=== PATIENT | male | born 1935 | race Caucasian/White ===

== ENCOUNTER → 2016-03-31 | Outpatient (CLI) | payer MEDICARE ==
[~2016-03-31] MED LIST: AMBI10TA PO; ASPI81CH CHEW; CLON1TAB PO; GABA300C5 PO; METO25TA6 PO; PANT40TA3 PO; SODI650T PO; WARF-60 PO
[2016-03-31 17:26] LABS: INDIRECT BILIRUBIN 0.1 MG/DL (0.0-0.8); TOTAL BILIRUBIN ADULT 0.2 MG/DL (0.2-1.0)
== END ==
LOC: PLAB 13:50
PROVIDERS: ATTEND Internal Medicine Gastroenterology
DX: R10.11 Right upper quadrant pain (principal); R74.8 Abnormal levels of other serum enzymes
CPT/HCPCS: 36415; 80076

== ENCOUNTER 2016-04-23 08:33 | Observation (INO) | payer MEDICARE ==
[~2016-04-23] VITALS: Ht 175.3 cm; Wt 85.0 kg
[2016-04-23] VITALS (14 sets, daily range): BP systolic 123–195; BP diastolic 58–94; PULSE 54–79; RESP 14–20; TEMP 95.9–97.8; O2SAT 95–100
[~2016-04-23 08:33] MED LIST changes: -AMBI10TA PO
--- NOTE | 2016-04-23 08:42 | PD ---
HPI Chief Complaint: Chest Pain Time Seen by Provider: 08:42 Travel History International Travel<30 days: No Contact w/Intl Traveler<30days: No Traveled to known affect area: No History of Present Illness HPI 81-year-old male came to the emergency room with history of chest pain that started at 5 in the morning. Took one nitroglycerin and one baby aspirin. Decided come to the emergency room. He has history of coronary artery disease and has had stents in the past. His last stent was 6 years ago. He was asking for his waiver analyst was Dr. Don. Currently he says his pain is 3 out of 10. It radiates to his neck. Vital signs were stable. He does not appear to be in any distress currently. Describes the pain as a pressure sensation on his chest. No associated symptoms. PFSH Past Medical History Narrative Medical List of his past medical history is reviewed from the nursing note. Hx Anticoagulant Therapy: Yes Heart Rhythm Problems: Yes Cardiac Catheterization: Yes Cardiovascular Problems: Yes ([place]) High Cholesterol: Yes Chest Pain: Yes Congestive Heart Failure: No Coronary Artery Disease: Yes Diabetes: No Diminished Hearing: No Deep Vein Thrombosis: Yes Gastrointestinal Disorders: Yes (Diverticulitis, "infected hemmorhoid") Hypertension: Yes Respiratory: Yes (PE) Immunizations Current: Yes Myocardial Infarction: Yes (2005) Past Surgical History Cardiac Surgery: Yes (CAD) Coronary Artery Bypass Graft: No Coronary Stent: Yes Tonsillectomy: Yes Other Surgery: Yes Social History Alcohol Use: Yes (Normally daily w/ dinner, not in past 1 mo.) Tobacco Use: No Substance Use: No Allergies-Medications (Allergen,Severity, Reaction): Coded Allergies: Shellfish (Verified Allergy, Severe, SWELLING, 04/23/16) Contrast Media (Verified Allergy, Unknown, 04/23/16) HMG-CoA Reductase Inhibitors (Verified Allergy, Unknown, 04/23/16) Uncoded Allergies: STATINS (Allergy, Severe, 04/09/09) Comments List of his allergies reviewed from the nursing note. Reported Meds & Prescriptions Reported Meds & Active Scripts Active Reported Ambien (Zolpidem Tartrate) 10 Mg Tab 10 Mg PO HS PRN Aspirin 81 Mg Chew 81 Mg CHEW DAILY Warfarin 6 Mg Tab 6 Mg PO DAILY Narrative Medication List of his home medications reviewed from the nursing note. Review of Systems Except as stated in HPI: all other systems reviewed are Neg Physical Exam Narrative GENERAL: Awake, alert, no obvious distress SKIN: Warm and dry. HEAD: Atraumatic. Normocephalic. EYES: Pupils equal and round. No scleral icterus. No injection or drainage. ENT: No nasal bleeding or discharge. Mucous membranes pink and moist. NECK: Trachea midline. No JVD. CARDIOVASCULAR: Regular rate and rhythm. No murmur appreciated. RESPIRATORY: No accessory muscle use. Clear to auscultation. Breath sounds equal bilaterally. GASTROINTESTINAL: Abdomen soft, non-tender, nondistended. Hepatic and splenic margins not palpable. MUSCULOSKELETAL: No obvious deformities. No clubbing. No cyanosis. No edema. NEUROLOGICAL: Awake and alert. No obvious cranial nerve deficits. Motor grossly within normal limits. Normal speech. PSYCHIATRIC: Appropriate mood and affect; insight and judgment normal. Data Data Last Documented VS Vital Signs Date Time Temp Pulse Resp B/P Pulse Ox O2 Delivery O2 Flow Rate FiO2 04/23/16 11:00 55 16 123/58 95 Nasal Cannula 2 04/23/16 08:40 97.8 Orders Electrocardiogram (04/23/16 ) Basic Metabolic Panel (Bmp) (04/23/16 08:43) Ckmb (Isoenzyme) Profile (04/23/16 08:43) Complete Blood Count With Diff (04/23/16 08:43) Magnesium (Mg) (04/23/16 08:43) Prothrombin Time / Inr (Pt) (04/23/16 08:43) Act Partial Throm Time (Ptt) (04/23/16 08:43) Troponin I (04/23/16 08:43) Chest, Single Ap (04/23/16 08:43) Ecg Monitoring (04/23/16 08:43) Bilateral Bp Monitoring (04/23/16 08:43) Iv Access Insert/Monitor (04/23/16 08:43) Oximetry (04/23/16 08:43) Oxygen Administration (04/23/16 08:43) Sodium Chloride 0.9% Flush (Ns Flush) (04/23/16 08:45) Aspirin Chew (Aspirin Chew) (04/23/16 09:00) CKMB (04/23/16 08:50) CKMB% (04/23/16 08:50) Acetamin-Hydrocod 325-5 Mg ([place] 5-325 (04/23/16 10:45) Admit Order (Ed Use Only) (04/23/16 11:09) Labs Laboratory Tests Test 04/23/16 08:50 White Blood Count 4.3 TH/MM3 Red Blood Count 3.75 MIL/MM3 Hemoglobin 12.3 GM/DL Hematocrit 36.0 % Mean Corpuscular Volume 95.8 FL Mean Corpuscular Hemoglobin 32.8 PG Mean Corpuscular Hemoglobin 34.3 % Concent Red Cell Distribution Width 13.5 % Platelet Count 128 TH/MM3 Mean Platelet Volume 7.9 FL Neutrophils (%) (Auto) 66.7 % Lymphocytes (%) (Auto) 22.9 % Monocytes (%) (Auto) 6.2 % Eosinophils (%) (Auto) 3.9 % Basophils (%) (Auto) 0.3 % Neutrophils # (Auto) 2.9 TH/MM3 Lymphocytes # (Auto) 1.0 TH/MM3 Monocytes # (Auto) 0.3 TH/MM3 Eosinophils # (Auto) 0.2 TH/MM3 Basophils # (Auto) 0.0 TH/MM3 CBC Comment DIFF FINAL Differential Comment Prothrombin Time 20.7 SEC Prothromb Time International 1.8 RATIO Ratio Activated Partial 32.9 SEC Thromboplast Time Sodium Level 141 MEQ/L Potassium Level 4.1 MEQ/L Chloride Level 110 MEQ/L Carbon Dioxide Level 23.6 MEQ/L Anion Gap 7 MEQ/L Blood Urea Nitrogen 22 MG/DL Creatinine 2.37 MG/DL Estimat Glomerular Filtration 27 ML/MIN Rate Random Glucose 130 MG/DL Calcium Level 7.8 MG/DL Phosphorus Level 2.0 MG/DL Magnesium Level 2.0 MG/DL Total Creatine Kinase 106 U/L Creatine Kinase MB 2.6 NG/ML Troponin I 0.02 NG/ML B-Type Natriuretic Peptide 44 PG/ML [facility] Medical Decision Making Medical Screen Exam Complete: Yes Emergency Medical Condition: Yes Medical Record Reviewed: Yes Interpretation(s) Twelve-lead EKG was reviewed by me. Normal sinus rhythm, left axis, old inferior WA, nonspecific ST-T wave changes, bradycardia. Heart rate of 58 bpm. Differential Diagnosis ACS, non-STEMI, nonspecific chest pain Narrative Course 10:07 AM blood test results of back and within normal limits. Patient has stage IV kidney disease with renal insufficiency which is unchanged from his past blood test results. Have put a call out for his waiver analyst. Awaiting for him to call back. 10:[address] Don patient's waiver analyst called back and he wants the patient to be admitted. He will consult on the patient. Awaiting for the residents to call back. I explained this to the patient and he was comfortable with the plan. He asked something for his neck pain and one hydrocodone was ordered. Procedures EKG Prior to Arrival: Yes Physician Communication Physician Communication Dr. Don Diagnosis Primary Impression: Chest pain Qualified Code: R07.9 - Chest pain, unspecified type Additional Impression: Chronic kidney disease, stage IV (severe) Admitting Information Admitting Physician Requests: Admit Suki Brown MD Apr 23, 2016 08:42
[2016-04-23] MEDS ORDERED: SODIUM CHLORIDE 0.9% FLUSH 5 ML FLUSH IVF PRN (08:45)
[2016-04-23] MEDS ORDERED: ASPIRIN 81 MG CHEW TAB CHEW ONE (09:00)
[2016-04-23 09:14] LABS: AUTOMATED NEUTROPHIL # 2.9 TH/MM3 (1.8-7.7); BASOPHIL % 0.3 % (0.0-2.0); EOSINOPHIL # 0.2 TH/MM3 (0-0.4); EOSINOPHIL % 3.9 % (0.0-4.0); HEMO FLAGS DIFF FINAL; LYMPH % 22.9 % (9.0-44.0); MEAN CELL VOLUME 95.8 FL (80.0-100.0); MEAN CORPUSCULAR HEMOGLOBIN 32.8 PG (27.0-34.0); MEAN CORPUSCULAR HGB CONC 34.3 % (32.0-36.0); MONO % 6.2 % (0.0-8.0); NEUT % 66.7 % (16.0-70.0); PLATELET COUNT 128 TH/MM3 (150-450); RED BLOOD COUNT 3.75 MIL/MM3 (4.50-5.90); RED CELL DISTRIBUTION WIDTH 13.5 % (11.6-17.2); WHITE BLOOD COUNT 4.3 TH/MM3 (4.0-11.0)
[2016-04-23 09:19] LABS: APTT (PATIENT) 32.9 SEC (24.3-30.1); INTERNATIONAL NORMALIZED RATIO 1.8 RATIO; PROTHROMBIN TIME - PATIENT 20.7 SEC (9.8-11.6)
[2016-04-23 09:29] LABS: ANION GAP 7 MEQ/L (5-15); BICARBONATE 23.6 MEQ/L (21.0-32.0); BLOOD UREA NITROGEN 22 MG/DL (7-18); CHLORIDE 110 MEQ/L (98-107); GLOMERULAR FILTRATION RATE 27 ML/MIN (>89); POTASSIUM 4.1 MEQ/L (3.5-5.1); SODIUM (NA) 141 MEQ/L (136-145)
--- NOTE | 2016-04-23 09:32 | RADRPT ---
EXAM DATE/TIME: 04/23/2016 09:01 [facility] COMPARISON: CHEST SINGLE AP, February 11, 2016, 15:04. INDICATIONS : Chest discomfort, with tightness and shortness of breath. MEDICAL HISTORY : Myocardial infarction. SURGICAL HISTORY : Coronary artery stent. ENCOUNTER: Initial ACUITY: 2 days PAIN SCORE: 6/10 LOCATION: Bilateral chest FINDINGS: A single view of the chest demonstrates the lungs to be symmetrically aerated without evidence of mas s, infiltrate or effusion. The cardiomediastinal contours are unremarkable. Osseous structures are intact. CONCLUSION: No acute disease. Rayo Zaragoza MD FACR on April 23, 2016 at 9:30 Board Certified Radiologist. This report was verified electronically.
[2016-04-23 09:33] LABS: CREATINE KINASE 106 U/L (39-308)
[2016-04-23 09:45] LABS: CKMB 2.6 NG/ML (0.5-3.6)
[2016-04-23] MEDS ORDERED: AMBI10TA PO (10:39)
[2016-04-23] MEDS ORDERED: ACETAMINOPHEN/HYDROcodone 325 MG/5 MG TAB PO ONE (10:45)
--- NOTE | 2016-04-23 11:21 | HHI.HP ---
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 Patient states that around 5 AM he got up to go to the bathroom and at that time he experienced tremendous chest pain that lasted for 20 seconds. Patient stated that the chest pain is very similar to when he had heart attack in 2006. He describes the chest pain as sharp 10 out of 10 pain, the kind of pain that 'brings tears to the eyes.' He was also diaphoretic. He went back to sleep and woke up later at around 7:30 AM he was trying to make breakfast when he experienced severe shortness of breath. He asked his to call 911, and EVAC picked him up and brought him to the ED. He denies nausea, vomiting, fever. He has had chills and states that last night as he prepared to go to bed, he had dizziness, where he felt like the room was spinning. The patient also complains of neck/shoulder pain that started about 1 month ago. The pain starts in his left shoulder around his clavicle and radiates across his back to his right shoulder. He states that the pain became worse when the EMS tried to change his shirt. Additionally, the patient complains of abdominal pain that has been going on for a couple of months. He has a GI doctor who is taking care of this problem. He takes it to be a peptobismol as needed. Patient also complains of bilateral incontinence, stating that sometimes when he stands up he drips and leaks. He denies blood, stating that his incontinence is only up mucus. His last colonoscopy was performed yet at [facility] in October 2015. He states that he had rectal bleeding on Coumadin. (Jacquie Narvaez MD R1) Review of Systems Constitutional: COMPLAINS OF: Fatigue (last 7 months ), Chills, Dizziness ( chronic, intermittent), DENIES: Fever Eyes: DENIES: Blurred vision, Eye pain Ears, nose, mouth, throat: COMPLAINS OF: Tinnitus, Hearing loss (chronic), Nasal discharge, Running Nose (hay fever) Respiratory: COMPLAINS OF: Cough, Shortness of breath Cardiovascular: COMPLAINS OF: Chest pain, Dyspnea on Exertion, DENIES: Palpitations Gastrointestinal: COMPLAINS OF: Abdominal pain, Diarrhea, DENIES: Nausea, Vomiting Genitourinary: DENIES: Urinary frequency Musculoskeletal: COMPLAINS OF: Muscle aches, Neck pain Integumentary: DENIES: Pruritus, Rash Neurologic: COMPLAINS OF: Headache (diffuse), DENIES: Paresthesias (fingertips ) (Jacquie Narvaez MD R1) Past Family Social History Past Medical History GA History of DVT History of Pulmonary Embolism Stage 3 Renal failure HTN Past Surgical History Stent placement (2) in 2005 Cataract surgery 2016 Reported Medications Reported Meds & Active Scripts Active Reported Ambien (Zolpidem Tartrate) 10 Mg Tab 10 Mg PO HS PRN Aspirin 81 Mg Chew 81 Mg CHEW DAILY Warfarin 6 Mg Tab 6 Mg PO DAILY (Jacquie Narvaez MD R1) Allergies: Coded Allergies: Shellfish (Verified Allergy, Severe, SWELLING, 04/23/16) Contrast Media (Verified Allergy, Unknown, 04/23/16) HMG-CoA Reductase Inhibitors (Verified Allergy, Unknown, 04/23/16) Uncoded Allergies: STATINS (Allergy, Severe, 04/09/09) Family History No FH of DM, CAD, HTN Social History Quit in 1973, quit at 17 years of age x ~1ppd A shot of wine every couple of nights for dinner or a beer Lives with wofe and a dog No sick contacts No pneumonia vaccine Got a flu shot (Jacquie Narvaez MD R1) Physical Exam Vital Signs Vital Signs Date Time Temp Pulse Resp B/P Pulse Ox O2 Delivery O2 Flow Rate FiO2 04/23/16 10:00 54 20 173/83 100 Nasal Cannula 2 04/23/16 09:06 64 150/87 04/23/16 09:02 56 138/84 04/23/16 08:55 66 18 132/81 100 Nasal Cannula 2 04/23/16 08:55 66 18 132/81 100 Nasal Cannula 04/23/16 08:41 99 Nasal Cannula 2 04/23/16 08:40 97.8 54 16 195/88 99 04/23/16 08:40 99 Room Air 04/23/16 08:40 97.8 54 100 04/23/16 08:40 54 Physical Exam GENERAL: This is a well-nourished, well-developed patient, in no apparent distress. SKIN: No rashes, ecchymoses or lesions. Cool and dry. HEAD: Atraumatic. Normocephalic. No temporal or scalp tenderness. EYES: Pupils equal round and reactive. Extraocular motions intact. No scleral icterus. No injection or drainage. ENT: Nose without bleeding, purulent drainage or septal hematoma. Throat without erythema, tonsillar hypertrophy or exudate. Uvula midline. Airway patent. NECK: Trachea midline. No JVD or lymphadenopathy. Supple, nontender, no meningeal signs. CARDIOVASCULAR: Bradycardic rate and rhythm without murmurs, gallops, or rubs. RESPIRATORY: Clear to auscultation. Breath sounds equal bilaterally. No wheezes , rales, or rhonchi. GASTROINTESTINAL: Abdomen soft, non-tender, nondistended. No hepato- splenomegaly. Possible palpable hernia of mid-abdominal wall. No guarding. MUSCULOSKELETAL: Pain with adduction of left shoulder. Pain with extension against resistance of left arm. Area of muscle spasm over left trapezius muscle . Extremities without clubbing, cyanosis, or edema. No joint tenderness, effusion, or edema noted. No calf tenderness. NEUROLOGICAL: Awake and alert. Cranial nerves II through XII intact. Motor and sensory grossly within normal limits. Five out of 5 muscle strength in all muscle groups. Normal speech. Laboratory Laboratory Tests Test 04/23/16 08:50 White Blood Count 4.3 Red Blood Count 3.75 Hemoglobin 12.3 Hematocrit 36.0 Mean Corpuscular Volume 95.8 Mean Corpuscular Hemoglobin 32.8 Mean Corpuscular Hemoglobin 34.3 Concent Red Cell Distribution Width 13.5 Platelet Count 128 Mean Platelet Volume 7.9 Neutrophils (%) (Auto) 66.7 Lymphocytes (%) (Auto) 22.9 Monocytes (%) (Auto) 6.2 Eosinophils (%) (Auto) 3.9 Basophils (%) (Auto) 0.3 Neutrophils # (Auto) 2.9 Lymphocytes # (Auto) 1.0 Monocytes # (Auto) 0.3 Eosinophils # (Auto) 0.2 Basophils # (Auto) 0.0 CBC Comment DIFF FINAL Differential Comment Prothrombin Time 20.7 Prothromb Time International 1.8 Ratio Activated Partial 32.9 Thromboplast Time Sodium Level 141 Potassium Level 4.1 Chloride Level 110 Carbon Dioxide Level 23.6 Anion Gap 7 Blood Urea Nitrogen 22 Creatinine 2.37 Estimat Glomerular Filtration 27 Rate Random Glucose 130 Calcium Level 7.8 Magnesium Level 2.0 Total Creatine Kinase 106 Creatine Kinase MB 2.6 Troponin I 0.02 (Jacquie Narvaez MD R1) Result Diagram: 04/23/16 0850 04/23/16 0850 Imaging Last Impressions Chest X-Ray 04/23/16 0843 Signed Impressions: Service Date/Time: Thursday, April 23, 2016 09:01 - CONCLUSION: No acute disease. Rayo Zaragoza MD FACR (Jacquie Narvaez MD R1) Assessment and Plan Assessment and Plan 81-year-old male presents with a one-day history of chest pain, shortness of breath, and dizziness. Patient states the chest pain is similar to when he had an GA in 2005. He will be admitted on observation for ACS rule out. Code Status Full code Discussed Condition With Seen and examined with Dr. Thomas, PGY 2. Discussed with Dr. Stanley. (Jacquie Narvaez MD R1) Problem List: (1) Chest pain Status: Acute Plan: -Chest pain lasted 20 seconds, apparently resolved -EKG/troponin 2 WNL -Cardiology consulted - Dr. Don - not a candidate for left heart cath due to see CKD, observation only -We'll consider heparin drip if troponin elevates -Received aspirin 162 mg PO in the ED -Continue aspirin 81 mg daily -Nitroglycerin topical when necessary chest pain -Patient not on a statin due to intolerance -Hydralazine 10 mg by mouth every 6 hours when necessary SBP greater than 160, DBP greater than 90 -[place], ibuprofen when necessary pain -Ambien 10 mg by mouth at bedtime when necessary insomnia -Urinalysis and UDS pending -2-D echo pending -Lipid panel pending -Vitals every 4 hours -Fall precautions -Out of bed as tolerated -Continuous cardiac telemetry -Continuous pulse oximetry with supplemental oxygen as needed (2) History of deep venous thrombosis Status: Chronic Plan: -Patient on warfarin 6 mg by mouth daily at home -INR subtherapeutic at 1.8 -We will continue home warfarin with pharmacy consult (3) History of pulmonary embolism Status: Chronic Plan: -D-dimer slightly elevated at 0.67 -Cardiology suggests VQ scan if elevated d-dimer (4) Chronic kidney disease, stage IV (severe) Status: Acute Plan: -Creatinine 2.37 on admission, similar to previous admissions -Last admission in 02/07, creatinine was 2.55 -Patient has good follow up with outpatient nephrology -Will monitor during this admission -Oral fluids only (5) Bowel incontinence Status: Chronic Plan: -Patient reports bowel incontinent of mucus-like liquid -Followed by GI as outpatient- Dr. Gan -Hemoccult pending (6) FEN/DVT PPX/GI PPX Status: Chronic Plan: Fluids: Oral fluids only Electrolytes: Replace as needed Nutrition: Renal diet DVT Prophylaxis: Warfarin, bilateral SCDs GI Prophylaxis: Protonix 40 mg by mouth daily (Jacquie Narvaez MD R1) Problem Qualifiers (1) Chest pain: Qualified Code: R07.9 - Chest pain, unspecified type Jacquie Narvaez MD R1 Apr 23, 2016 11:21 Melissa Stanley MD Apr 24, 2016 08:31
[2016-04-23] MEDS ORDERED: ZOLPIDEM TARTRATE 10 MG TAB PO PRN (11:45)
--- NOTE | 2016-04-23 11:55 | EKG ---
Date Performed: 04/23/2016 Time Performed: 08:43:58 PTAGE: 81 years EKG: SINUS BRADYCARDIA MARKED LEFT AXIS DEVIATION ABNORMAL ECG PREVIOUS TRACING : 02/11/2016 15.10 DOCTOR: Pieter Johnson Interpretating Date/Time 04/23/2016 11:53:56
[2016-04-23] MEDS ORDERED: IBUPROFEN 400 MG TAB PO PRN (12:15)
[2016-04-23] MEDS ORDERED: hydrALAZINE HCL 10 MG TAB PO PRN (12:15)
[2016-04-23] MEDS ORDERED: SYRINGE/BAG 1 EA PO SCH (12:15)
[2016-04-23] MEDS ORDERED: NITROGLYCERIN 2% OINT 1 GM PACKET TOPICAL PRN (12:15)
[2016-04-23] MEDS ORDERED: ONDANSETRON HCL 4 MG/2 ML VIAL IV PRN (12:15)
[2016-04-23] MEDS ORDERED: oxyCODONE/ACETAMINOPHEN 5 MG/325 MG TAB PO PRN (12:15)
--- NOTE | 2016-04-23 15:13 | PD.CONS ---
HPI Service Cardiology physicians Consult Requested By Reason for Consult Chest pain Primary Care Physician Siva Spencer MD History of Present Illness The patient is an 81 year old male with a cardiac history of ASHD s/p stent, HLD intolerant of statins, HTN, and carotid artery disease. Other notable history PE on coumadin (INR 1.8 on admission) and CKD. The patient had an episode of chest pain that lasted 20 seconds last night when he got up to use the bathroom. In the morning, he had an episode of SOB associated with diaphoresis. He states that recently, a gallbladder US was completed to evaluated for recurrent diarrhea. Today, he continues to have diarrhea. Troponin X 1 negative and EKG is negative for ischemia. (Dulce Maldonado) Review of Systems Consitutional: DENIES: Fatigue, Fever, Chills, Weight gain, Weight loss Eyes: DENIES: Amaurosis F[place], Change in vision HEENT: DENIES: Lightheadedness, Change in hearing Respiratory: COMPLAINS OF: Shortness of breath, DENIES: See HPI, Cough, Snoring, Wheezing, Sputum production Cardiovascular: COMPLAINS OF: Chest pain, DENIES: See HPI, Palpitations, Syncope, Tachycardia Gastrointestinal: COMPLAINS OF: Change in bowel habits, DENIES: Nausea, Vomiting, Reflux, Bloody stools, Melena Genitourinary: DENIES: Urinary incontinence, Difficulty voiding Integumentary: DENIES: Rash Neurologic: DENIES: Tingling or numbness, Memory problems, Poor Balance, Stroke symptoms Musculoskeletal: DENIES: Joint pain, Muscle pain, Limited range of motion, Back pain Psychiatric: DENIES: Anxiety, Depression, Sleep disturbances Hematologic: DENIES: Bruising tendencies, Bleeding tendencies Endocrine: DENIES: Weight gain, Weight loss, Thyroid disease (Dulce Maldonado ) Past Family Social History Allergies: Coded Allergies: Shellfish (Verified Allergy, Severe, SWELLING, 04/23/16) Contrast Media (Verified Allergy, Unknown, 04/23/16) HMG-CoA Reductase Inhibitors (Verified Allergy, Unknown, 04/23/16) Uncoded Allergies: STATINS (Allergy, Severe, 04/09/09) Past Medical History ASHD s/p stent 2005 HTN HLD, intolerant of statins CKD PE on coumadin Carotid stenosis Past Surgical History cath 2005, 2006 Reported Medications Reported Meds & Active Scripts Active Reported Ambien (Zolpidem Tartrate) 10 Mg Tab 10 Mg PO HS PRN Aspirin 81 Mg Chew 81 Mg CHEW DAILY Warfarin 6 Mg Tab 6 Mg PO DAILY Active Ordered Medications Current Medications Medications (Trade) Dose Ordered Sig/Krystle Route Start Time Stop Time Status Last Admin (NS Flush) 2 ml UNSCH PRN IVF 04/23/16 08:45 04/23/16 09:00 (Coumadin) 6 mg DAILY@1600 PO 04/24/16 16:00 Zolpidem Tartrate 10 mg 10 mg HS PRN PO 04/23/16 11:45 (Coumadin Consult Pharmacy) 0 ml @ 0 mls/hr UNSCH OTHER 04/23/16 12:00 (Nitroglycerin 2% Oint) 0.5 inch Q6HR PRN TOPICAL 04/23/16 12:15 (Apresoline) 10 mg Q6H PRN PO 04/23/16 12:15 (Zofran Inj) 4 mg Q6H PRN IV 04/23/16 12:15 (Percocet 5-325 Mg) 1 tab Q4H PRN PO 04/23/16 12:15 (Motrin) 400 mg Q6H PRN PO 04/23/16 12:15 Family History negative for heart disease Social History non smoker, no ETOH, lives with (Dulce Maldonado) Physical Exam Vital Signs Vital Signs Date Time Temp Pulse Resp B/P Pulse Ox O2 Delivery O2 Flow Rate FiO2 04/23/16 10:00 54 20 173/83 100 Nasal Cannula 2 04/23/16 09:06 64 150/87 04/23/16 09:02 56 138/84 04/23/16 08:55 66 18 132/81 100 Nasal Cannula 2 04/23/16 08:55 66 18 132/81 100 Nasal Cannula 04/23/16 08:41 99 Nasal Cannula 2 04/23/16 08:40 97.8 54 16 195/88 99 04/23/16 08:40 99 Room Air 04/23/16 08:40 97.8 54 16 195/88 100 04/23/16 08:40 54 195/88 Physical Exam GENERAL: Elderly male, no acute distress SKIN: Warm and dry. HEAD: Atraumatic. Normocephalic. EYES: Pupils equal and round. No scleral icterus. No injection or drainage. ENT: No nasal bleeding or discharge. Mucous membranes pink and moist. NECK: Trachea midline. CARDIOVASCULAR: Regular rate and rhythm. RESPIRATORY: No accessory muscle use. Clear to auscultation. Breath sounds equal bilaterally. GASTROINTESTINAL: Abdomen soft non distended MUSCULOSKELETAL: Extremities without clubbing, cyanosis, or edema. No obvious deformities. NEUROLOGICAL: Awake and alert. No obvious cranial nerve deficits. Motor grossly within normal limits. Five out of 5 muscle strength in the arms and legs. Normal speech. PSYCHIATRIC: Appropriate mood and affect; insight and judgment normal. Laboratory Laboratory Tests Test 04/23/16 08:50 White Blood Count 4.3 Red Blood Count 3.75 Hemoglobin 12.3 Hematocrit 36.0 Mean Corpuscular Volume 95.8 Mean Corpuscular Hemoglobin 32.8 Mean Corpuscular Hemoglobin 34.3 Concent Red Cell Distribution Width 13.5 Platelet Count 128 Mean Platelet Volume 7.9 Neutrophils (%) (Auto) 66.7 Lymphocytes (%) (Auto) 22.9 Monocytes (%) (Auto) 6.2 Eosinophils (%) (Auto) 3.9 Basophils (%) (Auto) 0.3 Neutrophils # (Auto) 2.9 Lymphocytes # (Auto) 1.0 Monocytes # (Auto) 0.3 Eosinophils # (Auto) 0.2 Basophils # (Auto) 0.0 CBC Comment DIFF FINAL Differential Comment Prothrombin Time 20.7 Prothromb Time International 1.8 Ratio Activated Partial 32.9 Thromboplast Time Sodium Level 141 Potassium Level 4.1 Chloride Level 110 Carbon Dioxide Level 23.6 Anion Gap 7 Blood Urea Nitrogen 22 Creatinine 2.37 Estimat Glomerular Filtration 27 Rate Random Glucose 130 Calcium Level 7.8 Phosphorus Level 2.0 Magnesium Level 2.0 Total Creatine Kinase 106 Creatine Kinase MB 2.6 Troponin I 0.02 B-Type Natriuretic Peptide 44 (Dulce Maldonado) Result Diagram: 04/23/16 0850 04/23/16 0850 Imaging Last 72 hours Impressions Chest X-Ray 04/23/16 0843 Signed Impressions: Service Date/Time: Saturday, April 23, 2016 09:01 - CONCLUSION: No acute disease. Rayo Zaragoza MD FACR (Dulce Maldonado) Assessment and Plan Assessment and Plan Chest pain, SOB, diaphoresis- troponin X 1 negative, EKG negative for ischemia History ASHD s/p stent 2005, negative cardiac PET 2012 HTN- hypertensive currently HLD, intolerant of statin Carotid stenosis Hx PE, INR subtherapeutic on admission CKD, Cr high Diarrhea PLAN: He is not a candidate for cardiac cath due to CKD. The patient denies recurrent symptoms since admission. We will continue to observe overnight and trend troponin. In the meantime, will check d-dimer, if elevated can complete VQ to exclude PE. Add LFT and stool studies for diarrhea. Continue ASA. Not a candidate for BB due to low HR. Amlodipine 5mg now Patient seen and evaluated by Dr. Don. (Dulce Maldonado) Assessment and Plan At increased risk for cath due to renal insuff, will investigate further as outpatient, troponin negative.The exam, history, and the medical decision- making described in the above note were completed with the assistance of the mid -level provider. I reviewed and agree with the findings presented. I attest that I had a [id number] encounter with the patient on the same day, and personally performed and documented my assessment and findings in the medical record. (Araceli Don MD) Dulce Maldonado Apr 23, 2016 15:13 Araceli Don MD Apr 23, 2016 20:08
[2016-04-23] MEDS ORDERED: amLODIPine BESYLATE 5 MG TAB PO ONE (16:00)
[2016-04-23] MEDS ORDERED: FLUTICASONE PROPIONATE 50 MCG/ACT 16 GM NASAL SPRAY EACH NARE PRN (18:15)
--- NOTE | 2016-04-23 21:56 | HHI.FPPN ---
Subjective Subjective Patient seen and examined. 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 He reports he was awoken at 5am with chest pain which spontaneously resolved, but then he subsequent difficulty breathing which prompted his coming to the ED. He is seen in the ED and is now chest pain free. [facility] Objective Objective Last Impressions Chest X-Ray 04/23/16 0843 Signed Impressions: Service Date/Time: Saturday, April 23, 2016 09:01 - CONCLUSION: No acute disease. Rayo Zaragoza MD FACR Laboratory Tests - Abnormals Test 04/23/16 04/23/16 08:50 16:34 Red Blood Count 3.75 MIL/MM3 Hemoglobin 12.3 GM/DL Hematocrit 36.0 % Platelet Count 128 TH/MM3 Prothrombin Time 20.7 SEC Activated Partial 32.9 SEC Thromboplast Time Chloride Level 110 MEQ/L Blood Urea Nitrogen 22 MG/DL Creatinine 2.37 MG/DL Estimat Glomerular Filtration 27 ML/MIN Rate Random Glucose 130 MG/DL Calcium Level 7.8 MG/DL Phosphorus Level 2.0 MG/DL D-Dimer Quantitative (PE/DVT) 0.67 MG/L FEU Vital Signs 04/23/16 04/23/16 04/23/16 04/23/16 08:40 08:40 08:40 08:40 Temp 97.8 97.8 Pulse 54 54 54 Resp 16 16 B/P 195/88 195/88 195/88 Pulse Ox 100 99 99 O2 Delivery Room Air 04/23/16 04/23/16 04/23/16 04/23/16 08:41 08:55 08:55 09:02 Pulse 66 66 56 Resp 18 18 B/P 132/81 132/81 138/84 Pulse Ox 99 100 100 O2 Delivery Nasal Cannula Nasal Cannula Nasal Cannula O2 Flow Rate 2 2 04/23/16 04/23/16 04/23/16 04/23/16 09:06 10:00 11:00 12:00 Pulse 64 54 55 56 Resp 20 16 18 B/P 150/87 173/83 123/58 168/75 Pulse Ox 100 95 98 O2 Delivery Nasal Cannula Nasal Cannula Nasal Cannula O2 Flow Rate 2 2 2 04/23/16 04/23/16 04/23/16 04/23/16 13:00 14:00 14:50 15:05 Temp 95.9 Pulse 56 64 54 57 Resp 15 15 16 14 B/P 160/75 177/84 172/62 184/91 Pulse Ox 99 100 100 99 O2 Delivery Nasal Cannula Nasal Cannula Nasal Cannula O2 Flow Rate 2 2 2 04/23/16 04/23/16 04/23/16 15:14 20:00 20:59 Temp 97.8 Pulse 59 60 Resp 18 B/P 178/85 Pulse Ox 98 O2 Delivery Nasal Cannula O2 Flow Rate 2.00 Physical exam GENERAL: elderly male sitting up in bed, NAD SKIN: Warm and dry. no rashes HEAD: Normocephalic. AT EYES: No scleral icterus. No injection or drainage. ENT: OP clear MMM. NC in place. NECK: Supple, trachea midline. No JVD or lymphadenopathy. CARDIOVASCULAR: Regular rate and rhythm without murmurs, gallops, or rubs. RESPIRATORY: Breath sounds equal and clear bilaterally. No accessory muscle use. GASTROINTESTINAL: Abdomen soft, non-tender, nondistended. MUSCULOSKELETAL: No cyanosis, or edema. No calf tenderness BACK: Nontender without obvious deformity. No CVA tenderness. NEURO Awake and alert. Normal speech. CN grossly intact. Assessment Assessment 81yoM admitted with: Chest pain and shortness of breath, similar to patient's prior [place] Hx CAD requiring stent placement Hx DVT and PE x 2 requiring anticoagulation HTN CKD, stage III Uncontrolled BP Hypophosphatemia PLAN PLAN Serial CE, ekg Resume anticoagulation Cardiology consult, known to Dr. Don BP control Resume home meds as appropriate PT/INR Trend BMP Patient seen and examined. Case reviewed and discussed Agree with plan of care as discussed with me and documented in the resident note. Melissa Stanley MD Apr 23, 2016 21:56
[2016-04-24 06:00] VITALS: BP 141/85; PULSE 77; RESP 18; TEMP 97.7; O2SAT 96
[2016-04-24 07:26] VITALS: BP 140/71; PULSE 67; RESP 18; TEMP 98.5; O2SAT 98
[2016-04-24] MEDS ORDERED: ASPIRIN 81 MG CHEW TAB CHEW SCH (09:00)
--- NOTE | 2016-04-24 13:33 | PD.AMA ---
Against Medical Advice Note Discharge Disposition: Against Medical Advice Pt Condition on Discharge: Stable AMA Statement Patient Jamshid Valdez has decided to leave the hospital against medical advice. This patient has the capacity to refuse care and understands the risks of leaving, including permanent disability and/or , and has had an opportunity to ask questions about his condition. The patient has been informed that he may return for care at any time, and follow up has been arranged/ advised. Jacquie Narvaez MD R1 Apr 24, 2016 13:33
[2016-04-24] MEDS ORDERED: WARFARIN SOD 6 MG TAB PO SCH (16:00)
--- NOTE | 2016-04-24 23:50 | EKG ---
Date Performed: 04/23/2016 Time Performed: 21:05:47 PTAGE: 81 years EKG: SINUS BRADYCARDIA INFERIOR MYOCARDIAL INFARCTION ABNORMAL ECG PREVIOUS TRACING : 04/23/2016 15.45 Compared to prior tracing no significant change DOCTOR: Lalito Delaney Interpretating Date/Time 04/24/2016 23:48:48
--- NOTE | 2016-04-24 23:59 | EKG ---
Date Performed: 04/23/2016 Time Performed: 15:45:36 PTAGE: 81 years EKG: SINUS BRADYCARDIA MARKED LEFT AXIS DEVIATION ABNORMAL ECG PREVIOUS TRACING : 04/23/2016 08.43 Compared to prior tracing no significant change DOCTOR: Lalito Delaney Interpretating Date/Time 04/24/2016 23:58:38
== END 2016-04-24 10:35 | disposition left against medical advice (07) ==
LOC: NEPC 08:33 → NEDA 11:12 → NEPFCDU 15:34 → NEDA 04-24 00:58
PROVIDERS: ADMIT Family Medicine; ATTEND Family Medicine
DX: R07.9 Chest pain, unspecified (principal); N18.4 Chronic kidney disease, stage 4 (severe); I12.9 Hypertensive chronic kidney disease with stage 1 through stage 4 chronic kidney disease, or unspecified chronic kidney disease; I25.10 Atherosclerotic heart disease of native coronary artery without angina pectoris; Z79.01 Long term (current) use of anticoagulants; I25.2 Old myocardial infarction; E78.00 Pure hypercholesterolemia, unspecified; R61 Generalized hyperhidrosis; M25.512 Pain in left shoulder; R10.9 Unspecified abdominal pain; R32 Unspecified urinary incontinence; Z86.711 Personal history of pulmonary embolism; Z79.82 Long term (current) use of aspirin; Z86.718 Personal history of other venous thrombosis and embolism; R15.9 Full incontinence of feces; E78.5 Hyperlipidemia, unspecified; E83.39 Other disorders of phosphorus metabolism; R94.31 Abnormal electrocardiogram [ECG] [EKG]
CPT/HCPCS: 71010; 80048; 82550; 82552; 83735; 83880; 84100; 84484; 85025; 85379; 85610; 85730; 93005; 99285; G0378

== ENCOUNTER 2017-09-21 11:10 | Inpatient (IN) ==
[2017-09-21] MEDS ORDERED: Aspirin 325 MG Tablet PO ONE (11:30)
--- NOTE | 2017-09-21 11:49 | ED ---
HPI General Chief complaint: Respiratory Symptoms Stated complaint: SOB Time Seen by Provider: 09/21/17 11:22 Source: patient and EMS Mode of arrival: EMS Limitations: no limitations History of Present Illness HPI narrative: 82-year-old male the presents to the ED for evaluation of shortness of breath with exertion as well as chest pressure. Per patient he has had this for some time. Per patient almost a year. Per patient is progressively getting worse. He has some stents done in [place] a couple years ago. Per patient he had a stent on his LAD and MID RA by a different automobile damage appraiser and had stents as he had an PR at that time. Patient now he follows with Dr. Don did a stress test 2 weeks ago did show changes and they are working to schedule him for a heart cath on . Per patient his symptoms worsened today as he could barely even get up to get coffee and he called the ambulance and came here for evaluation. Is hoping he can have the procedure done today. Currently he denies any chest pain or symptoms alert and some shortness of breath. He takes Coumadin. He denies any urinary or bowel movement issues at this time. No fevers chills or sweats. He states that he also has some kidney disease. Related Data Home Medications Medication Instructions Recorded Confirmed aspirin 81 mg PO DAILY 09/21/17 09/21/17 clonazepam [Klonopin] 1 mg PO DAILY PRN 09/21/17 09/21/17 gabapentin 300 mg PO BID 09/21/17 09/21/17 isosorbide mononitrate 30 mg PO QAM 09/21/17 09/21/17 metoprolol succinate 25 mg PO DAILY 09/21/17 09/21/17 pantoprazole 40 mg PO DAILY 09/21/17 09/21/17 sodium bicarbonate 650 mg PO TID 09/21/17 09/21/17 warfarin [Coumadin] 5.5 mg PO DAILY 09/21/17 09/21/17 warfarin [Coumadin] 5.5 mg PO DAILY 09/21/17 09/21/17 zolpidem [Ambien] 10 mg PO HS 09/21/17 09/21/17 Allergies Allergy/AdvReac Type Severity Reaction Status Date / Time shellfish derived Allergy Severe SWELLING Verified 09/21/17 11:25 diatrizoate meglumine Allergy Unknown Swelling Verified 09/21/17 11:42 gadobenic acid Allergy Unknown Swelling Verified 09/21/17 11:42 gadodiamide Allergy Unknown Swelling Verified 09/21/17 11:42 of Lip/Tongue/Throat gadoteridol Allergy Unknown Swelling Verified 09/21/17 11:42 of Lip/Tongue/Throat iodixanol Allergy Unknown Swelling Verified 09/21/17 11:42 of Lip/Tongue/Throat iohexol Allergy Unknown Swelling Verified 09/21/17 11:42 of Lip/Tongue/Throat Review of Systems ROS Unobtainable All other systems reviewed negative except as stated in HPI [facility] History History Provided By: 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 Medical History Medical History Anxiety (Acute) Cataract (Acute) HBP (high blood pressure) (Acute) High cholesterol (Acute) Hx pulmonary embolism (Acute) Surgical History Surgical History History of tonsillectomy (Acute) Hx of heart artery stent (Acute) Social History Social History Substance History: No History of Abuse Second Hand Smoke Exposure: No Smoking Status: Former smoker Tobacco Type: Cigarettes How Often Do You Have a Drink Containing Alcohol: 2 to 4 times a month Recent Travel in [facility] within the Last 8 Weeks: No Recent Out of Country Travel within the Last 8 Weeks: No Exam Narrative Exam Narrative: GENERAL: Well-appearing SKIN: Focused skin assessment warm/dry. HEAD: Atraumatic. Normocephalic. EYES: Pupils equal and round. No scleral icterus. No injection or drainage. ENT: No nasal bleeding or discharge. Mucous membranes pink and moist. Tongue is midline. No uvula deviation. NECK: Trachea midline. No JVD. CARDIOVASCULAR: Regular rate and rhythm. No murmur appreciated. RESPIRATORY: No accessory muscle use. Clear to auscultation. Breath sounds equal bilaterally. GASTROINTESTINAL: Abdomen soft, non-tender, nondistended. Hepatic and splenic margins not palpable. MUSCULOSKELETAL: No obvious deformities. No clubbing. No cyanosis. No edema. Full range of motion of the upper and lower extremities bilaterally. 2+ pulses bilaterally. NEUROLOGICAL: Awake and alert. No obvious cranial nerve deficits. Motor grossly within normal limits. Normal speech. PSYCHIATRIC: Appropriate mood and affect; insight and judgment normal. Course Initial Documented Vital Signs Temperature 97.9 F 09/21/17 11:25 Pulse Rate 99 H 09/21/17 11:25 Respiratory Rate 22 09/21/17 11:25 Blood Pressure 175/82 H 09/21/17 11:25 Pulse Oximetry 98 09/21/17 11:25 Last Documented Vital Signs Temperature 97.7 F 09/21/17 12:57 Pulse Rate 52 L 09/21/17 12:57 Respiratory Rate 17 09/21/17 12:57 Blood Pressure 177/83 H 09/21/17 12:57 Pulse Oximetry 98 09/21/17 12:57 Medical Decision Making MDM Narrative Medical decision making narrative: 82-year-old male the presents to the ED for evaluation of shortness of breath with exertion as well as chest pressure. Patient was properly examined and was found to have signs and symptoms consistent with ACS. Allegedly patient had a stress test that apparently was concerning and patient is scheduled to have a heart cath on . Per patient his symptoms are worsening progressively. Labs and imaging ordered. Labs and imaging showed no sign of acute disease or dome possible consolidation versus atelectasis on the chest x-ray. Chest x-ray is not really impressive. Case discussed with Dr. Don over the phone who recommends the patient be admitted, hydrated to fix some of his kidney dysfunction as well as to stop his Coumadin for likely heart cath. Patient agrees and understands this. Case discussed with the residents agreed admission to 13. Differential Diagnosis Differential Diagnosis: ACS versus CHF versus kidney disease versus fluid overload Medical Records Medical records reviewed: Yes I reviewed the patient's medical records. Lab Data Lab results reviewed: Yes I reviewed the patient's lab results. Lab results narrative: Troponin and CK-MB negative. BNP within normal limits. Result diagrams: 09/21/17 11:40 09/21/17 11:40 Lab Results 09/21/17 09/21/17 09/21/17 Range/Units 11:40 11:40 11:40 WBC 6.0 (4.0-11.0) th/mm3 RBC 3.87 L (4.50-5.90) mil/mm3 Hgb 12.6 L (13.0-17.0) gm/dL Hct 37.6 L (39.0-51.0) % MCV 97.1 (80.0-100.0) fL MCH 32.5 (27.0-34.0) pg MCHC 33.5 (32.0-36.0) % RDW 13.4 (11.6-17.2) % Plt Count 155 (150-450) th/mm3 MPV 8.3 (7.0-11.0) fL Neut % (Auto) 71.0 H (16.0-70.0) % Lymph % (Auto) 17.6 (9.0-44.0) % Ogle % (Auto) 7.8 (0.0-8.0) % Eos % (Auto) 3.2 (0.0-4.0) % Baso % (Auto) 0.4 (0.0-2.0) % Neut # (Auto) 4.2 (1.8-7.7) th/mm3 Lymph # (Auto) 1.1 (1.0-4.8) th/mm3 [place] # (Auto) 0.5 (0.0-0.9) th/mm3 Eos # (Auto) 0.2 (0.0-0.4) th/mm3 Baso # (Auto) 0.0 (0.0-0.2) th/mm3 WBC Differential . Differential Comment Auto diff final PT 25.9 H (9.8-11.6) sec INR 2.6 Ratio APTT 40.9 H (24.3-30.1) sec Sodium 143 (136-145) meq/L Potassium 5.2 H (3.5-5.1) meq/L Chloride 112 H (98-107) meq/L Carbon Dioxide 26.2 (21.0-32.0) meq/L Anion Gap 5 (5-15) meq/L BUN 29 H (7-18) mg/dL Creatinine 2.80 H (0.60-1.30) mg/dL Estimated GFR 22 L (>89) mL/min Random Glucose 98 (74-106) mg/dL Calcium 8.9 (8.5-10.1) mg/dL Total Creatine Kinase 148 (39-308) U/L CK-MB (CK-2) 2.9 (0.5-3.6) ng/mL Troponin I Less than 0.02 L (0.02-0.05) ng/mL B-Natriuretic Peptide (0-100) pg/mL 09/21/17 Range/Units 11:40 WBC (4.0-11.0) th/mm3 RBC (4.50-5.90) mil/mm3 Hgb (13.0-17.0) gm/dL Hct (39.0-51.0) % MCV (80.0-100.0) fL MCH (27.0-34.0) pg MCHC (32.0-36.0) % RDW (11.6-17.2) % Plt Count (150-450) th/mm3 MPV (7.0-11.0) fL Neut % (Auto) (16.0-70.0) % Lymph % (Auto) (9.0-44.0) % Ogle % (Auto) (0.0-8.0) % Eos % (Auto) (0.0-4.0) % Baso % (Auto) (0.0-2.0) % Neut # (Auto) (1.8-7.7) th/mm3 Lymph # (Auto) (1.0-4.8) th/mm3 [place] # (Auto) (0.0-0.9) th/mm3 Eos # (Auto) (0.0-0.4) th/mm3 Baso # (Auto) (0.0-0.2) th/mm3 WBC Differential Differential Comment PT (9.8-11.6) sec INR Ratio APTT (24.3-30.1) sec Sodium (136-145) meq/L Potassium (3.5-5.1) meq/L Chloride (98-107) meq/L Carbon Dioxide (21.0-32.0) meq/L Anion Gap (5-15) meq/L BUN (7-18) mg/dL Creatinine (0.60-1.30) mg/dL Estimated GFR (>89) mL/min Random Glucose (74-106) mg/dL Calcium (8.5-10.1) mg/dL Total Creatine Kinase (39-308) U/L CK-MB (CK-2) (0.5-3.6) ng/mL Troponin I (0.02-0.05) ng/mL B-Natriuretic Peptide 88 (0-100) pg/mL Imaging Data Attestation: I personally reviewed and interpreted this imaging study as follows : Radiologist's impression: Chest X-Ray 09/21/17 11:30 CONCLUSION: Prominence at the right infrahilar region likely representing an area of consolidation or atelectasis. ECG Data Attestation: I personally reviewed and interpreted this ECG as follows: Interpretation: EKG shows sinus rhythm with no sign of acute ST elevations. No sign of arrhythmia. But appears to be sinus. No changes from prior. Read by me and attending. Discharge Plan Discharge Disposition Patient Disposition: 30 Still Patient Discharge Details Diagnosis: Exertional dyspnea, DONNA (acute kidney injury) Physicians Team ED Provider: Andre Srivastava ED Midlevel Provider: Tez Rincon Primary Care Provider: Siva Saba Rxs /Orders / Referrals /Forms Prescriptions: No Action clonazepam [Klonopin] 1 mg Tablet 1 mg PO DAILY PRN (Reason: Anxiety) RF: 0 aspirin 81 mg Tablet,Delayed Release (Dr/Ec) 81 mg PO DAILY RF: 0 sodium bicarbonate 650 mg Tablet 650 mg PO TID RF: 0 pantoprazole 40 mg Tablet,Delayed Release (Dr/Ec) 40 mg PO DAILY RF: 0 warfarin [Coumadin] 5 mg Tablet 5.5 mg PO DAILY RF: 0 gabapentin 300 mg Capsule 300 mg PO BID RF: 0 metoprolol succinate 25 mg Tablet Extended Release 24 Hr 25 mg PO DAILY RF: 0 warfarin [Coumadin] 1 mg Tablet 5.5 mg PO DAILY RF: 0 zolpidem [Ambien] 10 mg Tablet 10 mg PO HS RF: 0 isosorbide mononitrate 30 mg Tablet Extended Release 24 Hr 30 mg PO QAM RF: 0 Discharge Interventions Interventions: Vital Signs Last Done: 09/21/17 12:57 Status ED Status: With Doctor
[2017-09-21 11:55] LABS: Baso % (Auto) 0.4 % (0.0-2.0); Eos # (Auto) 0.2 th/mm3 (0.0-0.4); Eos % (Auto) 3.2 % (0.0-4.0); Hematocrit 37.6 % (39.0-51.0); Hemoglobin 12.6 gm/dL (13.0-17.0); Lymph # (Auto) 1.1 th/mm3 (1.0-4.8); Lymph % (Auto) 17.6 % (9.0-44.0); Mean Corpuscular HGB Conc 33.5 % (32.0-36.0); Mean Corpuscular Hemoglobin 32.5 pg (27.0-34.0); Mean Corpuscular Volume 97.1 fL (80.0-100.0); Mean Platelet Volume 8.3 fL (7.0-11.0); Mono # (Auto) 0.5 th/mm3 (0.0-0.9); Mono % (Auto) 7.8 % (0.0-8.0); Neut # (Auto) 4.2 th/mm3 (1.8-7.7); Platelet Count 155 th/mm3 (150-450); Red Blood Count 3.87 mil/mm3 (4.50-5.90); Red Cell Distribution Width 13.4 % (11.6-17.2)
[2017-09-21 12:06] LABS: Activated Partial Thrombo Time 40.9 sec (24.3-30.1); INR 2.6 Ratio; Prothrombin Time 25.9 sec (9.8-11.6)
[2017-09-21 12:18] LABS: Anion Gap 5 meq/L (5-15); Blood Urea Nitrogen 29 mg/dL (7-18); Calcium 8.9 mg/dL (8.5-10.1); Carbon Dioxide 26.2 meq/L (21.0-32.0); Chloride 112 meq/L (98-107); Glomerular Filtration Rate 22 mL/min (>89); Glucose,Random 98 mg/dL (74-106); Potassium 5.2 meq/L (3.5-5.1); Sodium 143 meq/L (136-145)
[2017-09-21 12:22] LABS: Creatine Kinase 148 U/L (39-308)
[2017-09-21 12:35] LABS: Creatine Kinase MB 2.9 ng/mL (0.5-3.6)
--- NOTE | 2017-09-21 12:35 | XR ---
EXAM DATE: 09/21/2017 12:21 PM EDT AGE/SEX: 82 years / Male INDICATIONS: Short of breath. Pt states that he is suppose to have stent placed next week. CLINICAL DATA: This is the patient's initial encounter. Patient reports that signs and symptoms have been present for 2 months and indicates a pain score of 0/10. MEDICAL/SURGICAL HISTORY: . heart attack . 2 stents COMPARISON: No prior exams available for comparison. FINDINGS: The heart size is normal. There is increased density in the right infrahilar region at the medial rig ht base. The remaining aspects the lungs appear clear. No effusion is seen. CONCLUSION: Prominence at the right infrahilar region likely representing an area of consolidation or atelectasis . Electronically signed by: Taras Sanches MD 09/21/2017 12:34 PM EDT
--- NOTE | 2017-09-21 14:52 | P.CONCA ---
History of Present Illness Service: Cardiology Consult date: 09/21/17 Reason for Consult: Chest pain, SOB Primary Care Provider: Siva Saba MD Family Provider: Siva Saba MD Chief Complaint: SOB, chest pain History of Present Illness: 82 year old male well known to our practice with a past cardiac history of ASHDstatus post stent placement 2005, hypertension, hyperlipidemia, CKD stage 4 , history of DVT and PE, and prior GI bleed. He has not been feeling well over the past month or so. Reports he has episodes of SOB, feeling like he cant take a breath, chest pain that radiates across his chest and into his throat with minimal exertion, and fatigue. He reports earlier today he felt like he couldnt breath, and had radiating CP. CP worsened when walking to bathroom and improved with rest. He follows with Dr. Tamez for CKD. Pt was scheduled for outpatient heart cath , but reports that he felt like he would not make it until then . Long discussion had with pt about cath risks and potentially needing dialysis down the road. He also has hx of contrast allergy. Pt understands risk including , heart attack SD, stroke, bleeding, infection and possible dialysis and is willing to proceed with heart cath. INR on arrival was 2.6. Will give 1 time dose of vitamin K now and repeat INR in AM. Will plan to hold NPO after midnight for possible cath tomorrow. Chest xray revealed an area of consolidation. CT chest and procalcitonin ordered to evaluate further. 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 - Medical History Medical History: Medical History (Last Updated 09/21/17 @ 15:53 by May Shadeed) High cholesterol (Acute) HBP (high blood pressure) (Acute) Anxiety Cataract Hx pulmonary embolism - Surgical History Surgical History: Surgical History (Last Updated 09/21/17 @ 15:53 by May Shadeed) Hx of heart artery stent (Chronic) History of tonsillectomy - Tobacco History Second Hand Smoke Exposure: No Tobacco Use In Past 30 Days: No (quit 1973) Smoking Status: Former smoker Tobacco Type: Cigarettes - Alcohol History How Often Do You Have a Drink Containing Alcohol: 2 to 4 times a month - Substance Use History Substance History: No History of Abuse - Travel History Recent Travel in the [place] Within the Last 8 Weeks: No Recent Travel Out of the Country Within the Last 8 Weeks: No - Immunization History Tetanus Immunization: >5 Years Hx Influenza Vaccine This Season: Yes Medications and Allergies Active Medications: Active Medications Aspirin (Ecotrin) 81 mg PO DAILY VIVI Phytonadione 10 mg/ Sodium (Chloride) 51 mls @ 100 mls/hr IV.SIG ONCE ONE Stop: 09/21/17 15:14 Metoprolol Succinate (Toprol Xl) 25 mg PO DAILY VIVI Nitroglycerin (Nitrostat Sl) 0.4 mg SL Q5M PRN PRN Reason: CHEST PAIN Nitroglycerin (Nitro-Bid 2% Oint) 0.5 inch TOPICAL Q8HR VIVI Sodium Chloride (Ns Flush) 2 ml IV.FLUSH UNSCH PRN PRN Reason: FLUSH AFTER USING IV ACCESS Last Admin: 09/21/17 11:43 Dose: 2 ml Allergies Allergy/AdvReac Type Severity Reaction Status Date / Time shellfish derived Allergy Severe SWELLING Verified 09/21/17 11:25 diatrizoate meglumine Allergy Unknown Swelling Verified 09/21/17 11:42 gadobenic acid Allergy Unknown Swelling Verified 09/21/17 11:42 gadodiamide Allergy Unknown Swelling Verified 09/21/17 11:42 of Lip/Tongue/Throat gadoteridol Allergy Unknown Swelling Verified 09/21/17 11:42 of Lip/Tongue/Throat iodixanol Allergy Unknown Swelling Verified 09/21/17 11:42 of Lip/Tongue/Throat iohexol Allergy Unknown Swelling Verified 09/21/17 11:42 of Lip/Tongue/Throat Home Medications Medication Instructions Recorded Confirmed Type aspirin 81 mg PO DAILY 09/21/17 09/21/17 History clonazepam [Klonopin] 1 mg PO DAILY PRN 09/21/17 09/21/17 History gabapentin 300 mg PO BID 09/21/17 09/21/17 History isosorbide mononitrate 30 mg PO QAM 09/21/17 09/21/17 History metoprolol succinate 25 mg PO DAILY 09/21/17 09/21/17 History pantoprazole 40 mg PO DAILY 09/21/17 09/21/17 History sodium bicarbonate 650 mg PO TID 09/21/17 09/21/17 History warfarin [Coumadin] 5.5 mg PO DAILY 09/21/17 09/21/17 History warfarin [Coumadin] 5.5 mg PO DAILY 09/21/17 09/21/17 History zolpidem [Ambien] 10 mg PO HS 09/21/17 09/21/17 History Exam Vital signs: Vital Signs 09/21/17 11:25 09/21/17 11:30 09/21/17 11:37 Temperature 97.9 F 97.9 F 97.8 F Pulse Rate 99 H 52 L 52 L Respiratory Rate 22 18 18 Blood Pressure 175/82 H 170/81 H Blood Pressure [Left Arm] 165/82 H Blood Pressure [Right Arm] 156/83 H Pulse Oximetry 98 99 99 09/21/17 12:57 09/21/17 14:00 Temperature 97.7 F 97.8 F Pulse Rate 52 L 54 L Respiratory Rate 17 18 Blood Pressure 177/83 H 173/79 H Blood Pressure [Left Arm] Blood Pressure [Right Arm] Pulse Oximetry 98 98 Intake & Output 09/20/17 09/21/17 09/21/17 18:59 06:59 18:59 Weight 81.647 kg - Constitutional no acute distress - Routine HEENT Exam Head: Present: normocephalic Eye: Present: normal accommodation ENT: Present: mucous membranes moist - Routine Neck Exam Present: supple Comments: no JVD - Routine Chest/Breast/Axilla Exam Comments: admits to chest pain across chest and into neck - Routine Respiratory Exam Present: CTA bilaterally - Routine Cardiovascular Exam Present: bradycardia - Routine Abdominal Exam Present: soft - Routine Extremities Exam Comments: no edema - Routine Skin Exam Present: intact Comments: scattered bruises and age spots. - Routine Neurological Exam Present: alert, oriented X3 - Routine Psychiatric Exam Present: cooperative, good insight, good judgment Results 09/21/17 11:40 09/21/17 11:40 Cardiac Enzymes 09/21/17 09/21/17 Range/Units 11:40 11:40 CK-MB (CK-2) 2.9 (0.5-3.6) ng/mL Troponin I Less than 0.02 L (0.02-0.05) ng/mL B-Natriuretic Peptide 88 (0-100) pg/mL Coagulation 09/21/17 09/21/17 Range/Units 11:40 11:40 PT 25.9 H (9.8-11.6) sec APTT 40.9 H (24.3-30.1) sec B-Natriuretic Peptide 88 (0-100) pg/mL CBC 09/21/17 Range/Units 11:40 WBC 6.0 (4.0-11.0) th/mm3 RBC 3.87 L (4.50-5.90) mil/mm3 Hgb 12.6 L (13.0-17.0) gm/dL Hct 37.6 L (39.0-51.0) % Plt Count 155 (150-450) th/mm3 Neut # (Auto) 4.2 (1.8-7.7) th/mm3 Lymph # (Auto) 1.1 (1.0-4.8) th/mm3 [place] # (Auto) 0.5 (0.0-0.9) th/mm3 Eos # (Auto) 0.2 (0.0-0.4) th/mm3 Baso # (Auto) 0.0 (0.0-0.2) th/mm3 Comprehensive Metabolic Panel 09/21/17 Range/Units 11:40 Sodium 143 (136-145) meq/L Potassium 5.2 H (3.5-5.1) meq/L Chloride 112 H (98-107) meq/L Carbon Dioxide 26.2 (21.0-32.0) meq/L BUN 29 H (7-18) mg/dL Creatinine 2.80 H (0.60-1.30) mg/dL Calcium 8.9 (8.5-10.1) mg/dL Intake and Output 09/20/17 09/21/17 09/21/17 22:59 06:59 14:59 Other: Weight 81.647 kg Patient Weight 09/22/17 06:59 Weight 81.647 kg Assessment and Plan - Plan Chest pain SOB HTN Hyperlipidemia -History of ASHD with stent placement. Troponins negative x2. Will start on Nitro Paste. INR 2.6, vitamin K given. Will hold NPO after midnight for possible cath tomorrow. Pt does have contrast allergy, also stage 4 CKD, nephrology consulted. -Consolidation noted on xray, CT chest pending. -Will add amlodipine 5 mg PRN SBP greater than 160 -Intolerant to statins. Patient was seen and evaluated by Dr. Don who completed face to face encounter and physical exam and participated in care, management and decision making. Discussed Condition With: ER nurse and Doctor
[2017-09-21] MEDS ORDERED: Phytonadione Inj 10 MG in Sodium Chlor 0.9% Inj 50 ML IV.SIG ONE (15:00)
--- NOTE | 2017-09-21 15:00 | CT ---
EXAM DATE: 09/21/2017 2:48 PM EDT AGE/SEX: 82 years / Male INDICATIONS: Short of breath consolidation noted on xray CLINICAL DATA: This is the patient's initial encounter. Patient reports that signs and symptoms have been present for 3 days and indicates a pain score of 0/10. MEDICAL/SURGICAL HISTORY: Hypertension. pulmonary embolism Coronary artery stent. RADIATION DOSE: 9.29 CTDI (mGy) COMPARISON: [facility], CHEST 1V SINGLE AP, 09/21/2017. . TECHNIQUE: Multiple contiguous axial images were obtained through the chest without contrast. Image s were obtained in suspended respiration using multiple row detector helical technique. Using automa dora exposure control and adjustment of the mA and/or kV according to patient size, radiation dose was kept as low as reasonably achievable to obtain optimal diagnostic quality images. DICOM format imag e data is available electronically for review and comparison. FINDINGS: There is prominent coronary artery calcification. No pleural or pericardial effusions are identified. Atherosclerotic calcification of the aorta is noted. There is a low-attenuation lesion in the left h epatic lobe measuring 1.5 cm, cystic in appearance. There is bilateral gynecomastia. No adenopathy. T here are degenerative changes of the spine noted. Review of lung windows demonstrate no focal consoli dation or effusion. The lungs are clear. There is no mass. CONCLUSION: 1. Clear lungs. 2. Gynecomastia. 3. Atherosclerosis. Electronically signed by: Omid Goodwin MD 09/21/2017 2:59 PM EDT
--- NOTE | 2017-09-21 15:03 | P.HPFP ---
History of Present Illness Primary Care Physician: Siva Saba MD Quantitative Analyst Dr. Don History of Present Illness: 82-year-old male, history of CKD stage III, PE with chronic anticoagulation, hypertension, CAD with stent placement, presents with increasing dyspnea and chest pain with activity. The patient came into the hospital because his shortness of breath and chest pain was severe enough to where he did not think he would make it until his cardiac catheterization scheduled for . He has had shortness of breath and chest pain along with neck pain intermittently over the last year. The chest pain occurs when he gets up and starts walking around/any activity. If he stays still he does not have any chest pain. His chest hurts around the pectoral muscle and it is very difficult for him to describe. He feels gassy as well, like he "has to burp". He has not taken any medications for the chest pain. The pain is a 5/10 when it occurs. He states he "can't breath" and that finally made him come into the ED. The SOB has been occuring x 1.5months now, and he has not tried anything to relieve his SOB. He does not currently feel any sx; but he feels some neck pain and feels like he has to burp. Denies any N/V. Denies any radiation of the pain down either arm. Denies any calf tenderness. - Diagnosis (1) Exertional dyspnea (2) CKD stage 4 secondary to hypertension (3) History of pulmonary embolism (4) HBP (high blood pressure) (5) Nutrition, metabolism, and development symptoms (6) DVT prophylaxis Review of Systems Constitutional: Denies body ache(s), Denies chills Eyes: Denies blurry vision, Denies bulging eyes Ears, Nose, Mouth, and Throat: Denies abnormal hearing, Denies mouth lesions, Denies nasal obstruction Cardiovascular: Reports irregular heart rhythm, Denies fainting, Denies lightheadedness Respiratory: Denies change in phlegm color, Denies chest congestion, Denies cough Gastrointestinal: Denies abdominal pain, Denies black, tarry stools, Denies change in stools, Denies nausea, Denies vomiting Genitourinary: Denies blood in urine, Denies urinary frequency Musculoskeletal: Denies abnormal walking Neurologic: Denies abnormal hearing, Denies abnormal walking, Denies behavioral changes Comments: mood changes, more hostile with , has parkinsons and falling PMFSH - History History Provided By: Patient, Roping Machine Tender / EMT - Medical History Medical History: Medical History (Last Updated 09/21/17 @ 15:01 by Jeanette Quijano MD, R2) Anxiety Cataract HBP (high blood pressure) High cholesterol Hx pulmonary embolism - Surgical History Surgical History: Surgical History (Last Updated 09/21/17 @ 15:01 by Jeanette Quijano MD, R2) History of tonsillectomy Hx of heart artery stent - Tobacco History Second Hand Smoke Exposure: No Tobacco Use In Past 30 Days: No (quit 1973) Smoking Status: Former smoker (smoked 15 years 1 ppd, quit 45 years ago) Tobacco Type: Cigarettes - Alcohol History How Often Do You Have a Drink Containing Alcohol: 2 to 4 times a month - Substance Use History Substance History: No History of Abuse - Travel History History of Recent Travel: No Recent Travel in the [place] Within the Last 8 Weeks: No Recent Travel Out of the Country Within the Last 8 Weeks: No - Immunization History Tetanus Immunization: >5 Years Hx Influenza Vaccine This Season: Yes Medications and Allergies Active Medications: Active Medications Aspirin (Ecotrin) 81 mg PO DAILY VIVI Phytonadione 10 mg/ Sodium (Chloride) 51 mls @ 100 mls/hr IV.SIG ONCE ONE Stop: 09/21/17 15:14 Metoprolol Succinate (Toprol Xl) 25 mg PO DAILY VIVI Nitroglycerin (Nitrostat Sl) 0.4 mg SL Q5M PRN PRN Reason: CHEST PAIN Nitroglycerin (Nitro-Bid 2% Oint) 0.5 inch TOPICAL Q8HR VIVI Sodium Chloride (Ns Flush) 2 ml IV.FLUSH UNSCH PRN PRN Reason: FLUSH AFTER USING IV ACCESS Last Admin: 09/21/17 11:43 Dose: 2 ml Allergies Allergy/AdvReac Type Severity Reaction Status Date / Time shellfish derived Allergy Severe SWELLING Verified 09/21/17 11:25 diatrizoate meglumine Allergy Unknown Swelling Verified 09/21/17 11:42 gadobenic acid Allergy Unknown Swelling Verified 09/21/17 11:42 gadodiamide Allergy Unknown Swelling Verified 09/21/17 11:42 of Lip/Tongue/Throat gadoteridol Allergy Unknown Swelling Verified 09/21/17 11:42 of Lip/Tongue/Throat iodixanol Allergy Unknown Swelling Verified 09/21/17 11:42 of Lip/Tongue/Throat iohexol Allergy Unknown Swelling Verified 09/21/17 11:42 of Lip/Tongue/Throat Home Medications Medication Instructions Recorded Confirmed Type aspirin 81 mg PO DAILY 09/21/17 09/21/17 History clonazepam [Klonopin] 1 mg PO DAILY PRN 09/21/17 09/21/17 History gabapentin 300 mg PO BID 09/21/17 09/21/17 History isosorbide mononitrate 30 mg PO QAM 09/21/17 09/21/17 History metoprolol succinate 25 mg PO DAILY 09/21/17 09/21/17 History pantoprazole 40 mg PO DAILY 09/21/17 09/21/17 History sodium bicarbonate 650 mg PO TID 09/21/17 09/21/17 History warfarin [Coumadin] 5.5 mg PO DAILY 09/21/17 09/21/17 History warfarin [Coumadin] 5.5 mg PO DAILY 09/21/17 09/21/17 History zolpidem [Ambien] 10 mg PO HS 09/21/17 09/21/17 History Exam Vital signs: Vital Signs 09/21/17 11:25 09/21/17 11:30 09/21/17 11:37 Temperature 97.9 F 97.9 F 97.8 F Pulse Rate 99 H 52 L 52 L Respiratory Rate 22 18 18 Blood Pressure 175/82 H 170/81 H Blood Pressure [Left Arm] 165/82 H Blood Pressure [Right Arm] 156/83 H Pulse Oximetry 98 99 99 09/21/17 12:57 09/21/17 14:00 Temperature 97.7 F 97.8 F Pulse Rate 52 L 54 L Respiratory Rate 17 18 Blood Pressure 177/83 H 173/79 H Blood Pressure [Left Arm] Blood Pressure [Right Arm] Pulse Oximetry 98 98 Intake & Output 09/20/17 09/21/17 09/21/17 18:59 06:59 18:59 Weight 81.647 kg Results - Labs Result diagrams: 09/21/17 11:40 09/21/17 11:40 Abnormal lab results 09/21/17 09/21/17 09/21/17 Range/Units 11:40 11:40 11:40 RBC 3.87 L (4.50-5.90) mil/mm3 Hgb 12.6 L (13.0-17.0) gm/dL Hct 37.6 L (39.0-51.0) % Neut % (Auto) 71.0 H (16.0-70.0) % PT 25.9 H (9.8-11.6) sec APTT 40.9 H (24.3-30.1) sec Potassium 5.2 H (3.5-5.1) meq/L Chloride 112 H (98-107) meq/L BUN 29 H (7-18) mg/dL Creatinine 2.80 H (0.60-1.30) mg/dL Estimated GFR 22 L (>89) mL/min Troponin I Less than 0.02 L (0.02-0.05) ng/mL Short CBC 09/21/17 Range/Units 11:40 WBC 6.0 (4.0-11.0) th/mm3 Hgb 12.6 L (13.0-17.0) gm/dL Hct 37.6 L (39.0-51.0) % Plt Count 155 (150-450) th/mm3 BMP 09/21/17 11:40 Sodium 143 Potassium 5.2 H Chloride 112 H Carbon Dioxide 26.2 BUN 29 H Creatinine 2.80 H Calcium 8.9 Cardiac Enzymes 09/21/17 Range/Units 11:40 Total Creatine Kinase 148 (39-308) U/L CK-MB (CK-2) 2.9 (0.5-3.6) ng/mL Troponin I Less than 0.02 L (0.02-0.05) ng/mL - Imaging Impressions Chest X-Ray 09/21/17 11:30 CONCLUSION: Prominence at the right infrahilar region likely representing an area of consolidation or atelectasis. Caprini VTE Risk Assessment Caprini VTE Risk Assessment: No/Low Risk (score <= 1) Caprini Risk Assessment Model: Point Value = 1 Point Value = 2 Point Value = 3 Point Value = 5 Age 41-60 Minor surgery BMI > 25 kg/m2 Swollen legs Varicose veins or History of unexplained or recurrent spontaneous Oral contraceptives or hormone replacement Sepsis (< 1 month) Serious lung disease, including pneumonia (< 1 month) Abnormal pulmonary function Acute myocardial infarction Congestive heart failure (< 1 month) History of inflammatory bowel disease Medical patient at bed rest Age 61-74 Arthroscopic surgery Major open surgery (> 45 min) Laparoscopic surgery (> 45 min) Malignancy Confined to bed (> 72 hours) Immobilizing plaster cast Central venous access Age >= 75 History of VTE Family history of VTE Factor V Leiden Prothrombin [id number] Lupus anticoagulant Anticardiolipin antibodies Elevated serum homocysteine Heparin-induced thrombocytopenia Other congenital or acquired thrombophilia Stroke (< 1 month) Elective arthroplasty Hip, pelvis, or leg fracture Acute spinal cord injury (< 1 month) Prophylaxis Regimen: Total Risk Factor Score Risk Level Prophylaxis Regimen 0-1 Low Early ambulation 2 Moderate Order ONE of the following: *Sequential Compression Device (SCD) *Heparin 5000 units SQ BID 3-4 Higher Order ONE of the following medications: *Heparin 5000 units SQ TID *Enoxaparin/Lovenox 40 mg SQ daily (WT < 150 kg, CrCl > 30 mL/min) *Enoxaparin/Lovenox 30 mg SQ daily (WT < 150 kg, CrCl > 10-29 mL/min) *Enoxaparin/Lovenox 30 mg SQ BID (WT < 150 kg, CrCl > 30 mL/min) AND/OR *Sequential Compression Device (SCD) 5 or more Highest Order ONE of the following medications: *Heparin 5000 units SQ TID (Preferred with Epidurals) *Enoxaparin/Lovenox 40 mg SQ daily (WT < 150 kg, CrCl > 30 mL/min) *Enoxaparin/Lovenox 30 mg SQ daily (WT < 150 kg, CrCl > 10-29 mL/min) *Enoxaparin/Lovenox 30 mg SQ BID (WT < 150 kg, CrCl > 30 mL/min) AND *Sequential Compression Device (SCD) Assessment and Plan - Assessment (1) Exertional dyspnea Code(s): R06.09 - Other forms of dyspnea Status: Acute Plan: Exertional dyspnea and chest pain with activity 1 year, progressively worsening , follows with Dr. Don cardiology Scheduled for cardiac catheterization , however acute symptoms have brought him in today Differential includes ACS versus PE versus CHF Follow-up recommendations of private steamer tender -Nitropaste. N.p.o. at midnight for possible catheterization tomorrow, follow- up ACS workup -Added amlodipine 5 mg as needed systolic greater than 160 -Consolidation on chest x-ray, CT chest negative Low likelihood for PE; on Coumadin, not tachypneic or tachycardic continue to monitor vital signs BNP negative (2) CKD stage 4 secondary to hypertension Code(s): I12.9 - Hypertensive chronic kidney disease with stage 1 through stage 4 chronic kidney disease, or unspecified chronic kidney disease; N18.4 - Chronic kidney disease, stage 4 (severe) Status: Acute Plan: CKD stage IV, possibly due to elevated BPs Creatinine 2.8, baseline 2.3 Per cardiology, follow-up nephrology consult Follow-up urine sodium, urine creatinine Avoid all NSAIDs, caution with contrast, caution with fluids (3) History of pulmonary embolism Code(s): Z86.711 - Personal history of pulmonary embolism Status: Acute Plan: History of DVTs and PE of unknown source, on Coumadin INR 2.6 Status post vitamin K 10 mg Follow-up coags in a.m. (4) HBP (high blood pressure) Code(s): I10 - Essential (primary) hypertension Status: Acute Plan: 160-170/ 80s Per cardiology, hold home medication metoprolol twice daily Cardiology, added amlodipine 5 mg for systolic over 160 Add Vasotec IV as needed systolic over 180, diastolic over 100 (5) Nutrition, metabolism, and development symptoms Code(s): R63.8 - Other symptoms and signs concerning food and fluid intake Status: Acute Plan: Fluids: Encourage p.o. fluid intake, n.p.o. at midnight Electrolytes: Follow-up daily and replete as needed Nutrition: Cardiac diet until midnight, n.p.o. (6) DVT prophylaxis Status: Acute Plan: SCDs, hold Coumadin Status post vitamin K, follow-up INR in a.m., anticipating cardiac catheterization - Assessment and Plan 82-year-old male, history of CKD stage III, PE with chronic anticoagulation, hypertension, presents with increasing dyspnea and chest pain with activity. Discharge Planning: Discharge pending cardiology recommendations, completion of cardiac catheterization and possible stent placement, stabilization of creatinine, restarting anticoagulation following procedure
[2017-09-21 15:31] LABS: Creatine Kinase 129 U/L (39-308)
[2017-09-21] MEDS ORDERED: Bisacodyl 10 MG Supp RECTAL PRN (15:31)
[2017-09-21] MEDS ORDERED: Acetaminophen 325 MG Tablet PO PRN (15:31)
[2017-09-21 15:43] LABS: Creatine Kinase MB 2.4 ng/mL (0.5-3.6)
[2017-09-21] MEDS ORDERED: amLODIPine 5 MG Tablet PO PRN (15:59)
[2017-09-21] MEDS ORDERED: Sod Chloride 0.9% Inj 1,000 ML IV.CONT SCH (16:00)
[2017-09-21 20:42] LABS: Bilirubin,Urine Negative (Negative); Clarity,Urine Clear (Clear); Color,Urine Straw (Yellw/Straw); Glucose,Urine (UA) Negative (Negative); Leukocyte Esterase,Urine Negative (Negative); Mucus,Urine Few /lpf (Occasional); Nitrite,Urine Negative (Negative); Specific Gravity,Urine 1.011 (1.002-1.035)
[2017-09-21 21:05] LABS: Creatinine,Urine Random 90 mg/dL (27-300)
--- NOTE | 2017-09-21 21:20 | MB ---
cc: Andrey Medrano MD DATE: 09/21/2017 REASON FOR CONSULTATION: Chronic kidney disease with high BUN and creatinine, for evaluation. HISTORY OF PRESENT ILLNESS: This is an 82-year-old male with a past medical history of ischemic heart disease, history of stent placement, hypertension, hyperlipidemia, history of deep venous thrombosis and pulmonary embolism, GI bleeding, chronic kidney disease, advanced stage IV renal failure, who came to the hospital complaining of worsening shortness of breath. I was called to see the patient because of high BUN and creatinine. The patient has known history of chronic kidney disease and he has been following with Dr. Cueva. His creatinine now is 2.8 and GFR is 22. Looking back, previously his creatinine was 2.3 in 2017 and there are some readings of 2.4 and 2.5 in 2014 and 2016. The patient was seen by Dr. Cueva, according to him, 2 weeks ago, and he was told that he had a GFR of around 17 and he was supposed to go for a cardiac catheterization and possibly stent placement as an outpatient this , but he had this worsening shortness of breath, so he came to the hospital. He denies any chest pain. There is no nausea or vomiting. There is no history of diarrhea. No dysuria, hematuria or difficulty passing urine. PAST MEDICAL HISTORY: Hypertension, ischemic heart disease, hyperlipidemia, history of pulmonary embolism, history of GI bleeding, chronic kidney disease, advanced stage IV renal failure. PAST SURGICAL HISTORY: History of cataract surgery, history of cardiac catheterization with stent placement in the past, tonsillectomy. REVIEW OF SYSTEMS: The patient denies any history of fever, no headache, dizziness or blurring of vision. He has shortness of breath, which increases with exertion. Has mild cough which is mainly dry. There is no chest pain. No palpitation. No nausea or vomiting. No history of abdominal pain. No history of diarrhea. No dysuria or hematuria. SOCIAL HISTORY: The patient has past history of smoking. He is . There is no history of heavy alcoholism. FAMILY HISTORY: Noncontributory. ALLERGIES: HE IS ALLERGIC TO MULTIPLE MEDICATIONS INCLUDING GADOLINIUM, IODIXANOL SHELLFISH. MEDICATIONS: Currently, he is on following medications: 1. Tylenol as needed. 2. Norvasc 5 mg p.r.n. 3. Aspirin 80 mg once a day. 4. Dulcolax p.r.n. 5. Benadryl 25 mg b.i.d. 6. Neurontin 300 mg b.i.d. 7. Zofran as needed. 8. Senokot every 12 hours. 9. Ambien 10 mg at bedtime. PHYSICAL EXAMINATION: GENERAL: Patient is awake, alert. He is not in acute distress. VITAL SIGNS: Blood pressure is 173/79 before that it was 166/83, temperature 97.8, oxygen saturation on room air is 98%. HEENT: Pupils are mid constricted. Nonicteric sclerae. Conjunctivae are normal. NECK: Supple. JVD is not elevated. LUNGS: The patient has bilateral decreased air entry with basal rales and scattered wheezing. HEART: S1, S2. Regular rate and rhythm. ABDOMEN: Soft, flat. No tenderness. Positive bowel sounds. EXTREMITIES: He has mild edema in the legs. LABORATORY DATA: WBC count is 6.0, hemoglobin 12.6, platelet count of 155, neutrophils 71%. INR is 22.6. Sodium 143, potassium 5.2, chloride 112, bicarbonate 26.2, BUN 29, creatinine 2.8. Troponin is less than 0.02. BNP is 88. IMAGING STUDIES: The patient has had no recent imaging study done. ASSESSMENT AND PLAN: 1. Shortness of breath and history of ischemic heart disease. 2. Chronic kidney disease, advanced stage IV renal failure. 3. Hypertension. 4. Hyperlipidemia. The patient has advanced stage IV renal disease and is seen by cardiology. He is now going for cardiac catheterization, possibly tomorrow if the INR is better. The patient has advanced renal failure and he has been following with Dr. Cueva, and he already discussed in detail with Dr. Cueva about the consequence of cardiac catheterization and he is aware that if the kidney function gets worse, he possibly will need dialysis. At present, his GFR is 22. His troponin is less than 0.02. The patient is possibly going to go for a cardiac catheterization tomorrow. Cardiology is aware of his renal dysfunction, so we will watch the kidney function and avoid any nephrotoxins. Thank you for the consultation. I will be following the patient while he is in the hospital. MD MARLEEN Anton/krishan/liyah , 08:12 PM , 08:24 PM
--- NOTE | 2017-09-21 21:26 | ECG ---
Date Performed: 09/21/2017 Time Performed: 11:31:15 PTAGE: 82 years EKG: SINUS BRADYCARDIA WITH FIRST DEGREE AV BLOCK MARKED LEFT AXIS DEVIATION POSSIBLE ANTERIOR M YOCARDIAL INFARCTION ABNORMAL ECG NO PREVIOUS TRACING DOCTOR: Lalito Delaney Interpretating Date/Time 09/21/2017 21:26:05
[2017-09-21] MEDS: predniSONE 20 MG Tablet PO SCH (21:30)
[2017-09-21] MEDS: Gabapentin 300 MG Capsule PO SCH (21:30)
[2017-09-21] MEDS: Metoprolol Tartrate 25 MG Tablet PO SCH (21:30)
[2017-09-22] MEDS: Gabapentin 300 MG Capsule PO SCH ×2 (08:22→20:48)
[2017-09-22] MEDS: predniSONE 20 MG Tablet PO SCH (08:22)
[2017-09-22] MEDS: Metoprolol Tartrate 25 MG Tablet PO SCH ×2 (08:23→20:47)
[2017-09-22] MEDS ORDERED: Sod Chloride 0.9% Inj 1,000 ML IV.CONT SCH ×2 (08:30→16:00)
--- NOTE | 2017-09-22 08:31 | P.PNCA ---
Subjective Interval history: Patient is resting in bed. He denies any cardiac complaints. No chest pain since nitro paste was initiated. He denies any SOB. He is anxious to get heart cath done and go home. 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 Risks of procedure reviewed again this AM with patient. He understands risks and has decided to proceed. AM labs are still pending. Physical Exam Vital signs: Vital Signs 09/21/17 11:25 09/21/17 11:30 09/21/17 11:37 Temperature 97.9 F 97.9 F 97.8 F Pulse Rate 99 H 52 L 52 L Respiratory Rate 22 18 18 Blood Pressure 175/82 H 170/81 H Blood Pressure [Left Arm] 165/82 H Blood Pressure [Right Arm] 156/83 H Pulse Oximetry 98 99 99 09/21/17 12:57 09/21/17 14:00 09/21/17 15:20 Temperature 97.7 F 97.8 F 98.1 F Pulse Rate 52 L 54 L 58 L Respiratory Rate 17 18 18 Blood Pressure 177/83 H 173/79 H 166/83 H Blood Pressure [Left Arm] Blood Pressure [Right Arm] Pulse Oximetry 98 98 98 09/21/17 15:31 09/21/17 18:00 09/21/17 21:18 Temperature 97.9 F 97.7 F Pulse Rate 58 L 57 L 60 Respiratory Rate 18 19 18 Blood Pressure 156/81 H 154/76 H 162/68 H Blood Pressure [Left Arm] Blood Pressure [Right Arm] Pulse Oximetry 97 99 100 09/21/17 21:28 09/21/17 21:49 09/21/17 23:46 Temperature 98.4 F Pulse Rate 67 67 65 Respiratory Rate 17 Blood Pressure 168/64 H Blood Pressure [Left Arm] Blood Pressure [Right Arm] Pulse Oximetry 99 09/22/17 00:00 09/22/17 04:00 Temperature 98.8 F 98.4 F Pulse Rate 64 75 Respiratory Rate 19 16 Blood Pressure 102/56 L 155/81 H Blood Pressure [Left Arm] Blood Pressure [Right Arm] Pulse Oximetry 95 94 L Intake & Output 09/21/17 09/22/17 09/22/17 18:59 06:59 18:59 Intake Total 80 / 80 240 / 240 Output Total 350 / 350 Balance 80 / 80 -110 / -110 Weight 81.647 kg 84.6 kg Intake: IV 80 / 80 NS Inj 1,000 ML @ 80 mls/hr IV. 80 / 80 CONT .[id number] VIVI Rx#:[id number] Oral 240 / 240 Output: Urine 350 / 350 Other: # Voids 1 # Bowel Movements 1 Weight On Admission 84.8 kg - Constitutional no acute distress - Routine HEENT Exam Head: Present: normocephalic, atraumatic Eye: Present: normal accommodation ENT: Present: mucous membranes moist - Routine Neck Exam Present: supple - Routine Respiratory Exam Present: CTA bilaterally - Routine Cardiovascular Exam Present: RRR - Routine Abdominal Exam Present: soft - Routine Skin Exam Present: intact, dry, ecchymosis - Routine Neurological Exam Present: alert, oriented X3, normal speech - Detailed Neurological Exam: Coma Scale Eye Opening: Spontaneous Verbal Response: Oriented Motor Response: Obey commands [place] Coma Scale Total: 15 - Routine Psychiatric Exam Present: normal affect, cooperative, good insight, good judgment Assessment and Plan - Plan Chest pain SOB CKD HTN Hyperlipidemia -AM labs pending. Will plan for left heart cath today at 12:30. Patient has been pre-medicated for contrast allergy. Will start IV fluids this AM due to renal insufficiency. INR results pending. Patient received Vitamin K yesterday. -Nephrology following. -CT chest negative -Intolerant to statins. Patient was seen and evaluated by Dr. Don who completed face to face encounter and physical exam and participated in care, management and decision making. Discussed Condition With: Nurse
--- NOTE | 2017-09-22 08:59 | ECG ---
Date Performed: 09/21/2017 Time Performed: 15:48:09 PTAGE: 82 years EKG: SINUS BRADYCARDIA MARKED LEFT AXIS DEVIATION MINIMAL VOLTAGE CRITERIA FOR LVH, CONSIDER NOR MAL VARIANT POSSIBLE ANTERIOR MYOCARDIAL INFARCTION ABNORMAL ECG PREVIOUS TRACING : 09/21/2017 11.31 Since the previous tracing, no significant change noted DOCTOR: Isaias Snyder Interpretating Date/Time 09/22/2017 08:58:07
[2017-09-22 11:04] LABS: Albumin 3.2 g/dL (3.4-5.0); Anion Gap 9 meq/L (5-15); Aspartate Aminotransferase 14 U/L (15-37); Blood Urea Nitrogen 32 mg/dL (7-18); Calcium 8.9 mg/dL (8.5-10.1); Carbon Dioxide 21.4 meq/L (21.0-32.0); Chloride 109 meq/L (98-107); Glomerular Filtration Rate 22 mL/min (>89); Glucose,Random 145 mg/dL (74-106); Potassium 4.8 meq/L (3.5-5.1); Sodium 139 meq/L (136-145)
[2017-09-22 11:05] LABS: Alanine Aminotransferase 18 U/L (12-78)
--- NOTE | 2017-09-22 11:09 | P.PNFP ---
Subjective Interval history: Patient seen and examined bedside this morning. Patient has Nitropaste on and continues to complain of headache, which is common for him when he is using Nitropaste. He is not currently have any chest pain or acute shortness of breath. He has been eating and drinking without difficulty. He denies any calf tenderness. He is anticipating catheterization today and hopefully he can go home as soon as possible to take care of his . No acute events overnight. No fever/chills. <Jeanette Quijano - 09/22/17 11:08> Results - Labs Result diagrams: 09/22/17 12:06 09/22/17 10:05 <Jairo Mendoza - 09/23/17 08:23> Abnormal lab results 09/22/17 09/22/17 09/22/17 Range/Units 10:05 12:06 12:06 RBC 4.01 L (4.50-5.90) mil/mm3 Neut % (Auto) 91.9 H (16.0-70.0) % Lymph % (Auto) 7.1 L (9.0-44.0) % Lymph # (Auto) 0.6 L (1.0-4.8) th/mm3 PT 12.3 H D (9.8-11.6) sec Chloride 109 H (98-107) meq/L BUN 32 H (7-18) mg/dL Creatinine 2.77 H (0.60-1.30) mg/dL Estimated GFR 22 L (>89) mL/min Random Glucose 145 H (74-106) mg/dL AST 14 L (15-37) U/L Troponin I Less than 0.02 L (0.02-0.05) ng/mL Albumin 3.2 L (3.4-5.0) g/dL Short CBC 09/22/17 Range/Units 12:06 WBC 8.1 (4.0-11.0) th/mm3 Hgb 13.2 (13.0-17.0) gm/dL Hct 39.0 (39.0-51.0) % Plt Count 168 (150-450) th/mm3 BMP 09/22/17 10:05 Sodium 139 Potassium 4.8 Chloride 109 H Carbon Dioxide 21.4 BUN 32 H Creatinine 2.77 H Calcium 8.9 Cardiac Enzymes 09/22/17 Range/Units 10:05 Total Creatine Kinase 109 (39-308) U/L CK-MB (CK-2) 2.0 (0.5-3.6) ng/mL Troponin I Less than 0.02 L (0.02-0.05) ng/mL Liver Function 09/22/17 Range/Units 10:05 Total Bilirubin 0.7 (0.2-1.0) mg/dL AST 14 L (15-37) U/L ALT 18 (12-78) U/L Alkaline Phosphatase 72 (45-117) U/L Albumin 3.2 L (3.4-5.0) g/dL <Jairo Mendoza - 09/23/17 08:23> Abnormal lab results 09/21/17 09/21/17 09/21/17 Range/Units 11:40 11:40 11:40 RBC 3.87 L (4.50-5.90) mil/mm3 Hgb 12.6 L (13.0-17.0) gm/dL Hct 37.6 L (39.0-51.0) % Neut % (Auto) 71.0 H (16.0-70.0) % PT 25.9 H (9.8-11.6) sec APTT 40.9 H (24.3-30.1) sec Potassium 5.2 H (3.5-5.1) meq/L Chloride 112 H (98-107) meq/L BUN 29 H (7-18) mg/dL Creatinine 2.80 H (0.60-1.30) mg/dL Estimated GFR 22 L (>89) mL/min Troponin I Less than 0.02 L (0.02-0.05) ng/mL Urine Protein (Neg-Trace) mg/dL Urine Occult Blood (Negative) Urine RBC (0-3) /hpf Urine Mucus (Occasional) /lpf 09/21/17 09/21/17 Range/Units 14:30 19:45 RBC (4.50-5.90) mil/mm3 Hgb (13.0-17.0) gm/dL Hct (39.0-51.0) % Neut % (Auto) (16.0-70.0) % PT (9.8-11.6) sec APTT (24.3-30.1) sec Potassium (3.5-5.1) meq/L Chloride (98-107) meq/L BUN (7-18) mg/dL Creatinine (0.60-1.30) mg/dL Estimated GFR (>89) mL/min Troponin I Less than 0.02 L (0.02-0.05) ng/mL Urine Protein 100 H (Neg-Trace) mg/dL Urine Occult Blood Moderate H (Negative) Urine RBC 9 H (0-3) /hpf Urine Mucus Few H (Occasional) /lpf Short CBC 09/21/17 Range/Units 11:40 WBC 6.0 (4.0-11.0) th/mm3 Hgb 12.6 L (13.0-17.0) gm/dL Hct 37.6 L (39.0-51.0) % Plt Count 155 (150-450) th/mm3 BMP 09/21/17 11:40 Sodium 143 Potassium 5.2 H Chloride 112 H Carbon Dioxide 26.2 BUN 29 H Creatinine 2.80 H Calcium 8.9 Cardiac Enzymes 09/21/17 09/21/17 Range/Units 11:40 14:30 Total Creatine Kinase 148 129 (39-308) U/L CK-MB (CK-2) 2.9 2.4 (0.5-3.6) ng/mL Troponin I Less than 0.02 L Less than 0.02 L (0.02-0.05) ng/mL Urine 09/21/17 Range/Units 19:45 Urine Color Straw (Yellw/Straw) Urine Clarity Clear (Clear) Urine pH 6.0 (5.0-8.5) Ur Specific [place] 1.011 (1.002-1.035) Urine Protein 100 H (Neg-Trace) mg/dL Urine Glucose (UA) Negative (Negative) mg/dL <Jeanette Quijano - 09/22/17 11:08> - Imaging Impressions Chest CT 09/21/17 00:00 CONCLUSION: 1. Clear lungs. 2. Gynecomastia. 3. Atherosclerosis. Chest X-Ray 09/21/17 11:30 CONCLUSION: Prominence at the right infrahilar region likely representing an area of consolidation or atelectasis. <Jeanette Quijano - 09/22/17 11:08> Physical Exam Vital signs: Vital Signs 09/22/17 12:00 09/22/17 15:40 09/22/17 15:55 Temperature 97.8 F 97.8 F Pulse Rate 65 77 77 Respiratory Rate 16 16 16 Blood Pressure 162/80 H 184/106 H 192/100 H Pulse Oximetry 93 L 97 98 09/22/17 16:00 09/22/17 16:10 09/22/17 16:25 Temperature 97.9 F Pulse Rate 74 68 68 Respiratory Rate 16 16 16 Blood Pressure 194/111 H 187/96 H 179/91 H Pulse Oximetry 98 98 97 09/22/17 16:55 09/22/17 17:25 09/22/17 17:55 Temperature Pulse Rate 83 77 76 Respiratory Rate 16 16 18 Blood Pressure 196/110 H 201/116 H 188/98 H Pulse Oximetry 99 96 96 09/22/17 18:25 09/22/17 19:00 09/22/17 20:00 Temperature 98.2 F Pulse Rate 78 83 74 Respiratory Rate 18 18 Blood Pressure 179/104 H 171/95 H Pulse Oximetry 98 95 09/22/17 21:00 09/22/17 22:00 09/22/17 23:00 Temperature Pulse Rate 80 72 70 Respiratory Rate Blood Pressure Pulse Oximetry 09/23/17 00:00 09/23/17 01:00 09/23/17 02:00 Temperature 97.8 F Pulse Rate 74 74 60 Respiratory Rate 18 Blood Pressure 126/70 Pulse Oximetry 94 L 09/23/17 03:00 09/23/17 04:00 09/23/17 05:00 Temperature 97.8 F Pulse Rate 60 64 58 L Respiratory Rate 18 Blood Pressure 140/71 Pulse Oximetry 96 09/23/17 06:00 Temperature Pulse Rate 60 Respiratory Rate Blood Pressure Pulse Oximetry Intake & Output 09/22/17 09/23/17 09/23/17 18:59 06:59 18:59 Intake Total 1200 / 1200 1760 / 1760 Output Total 300 / 300 275 / 275 Balance 900 / 900 1485 / 1485 Weight 84.9 kg Intake: IV 800 / 800 NS Inj 1,000 ML @ 150 mls/hr IV 800 / 800 .CONT .[id number] [facility] Rx#:[id number] Oral 1200 / 1200 960 / 960 Output: Urine 300 / 300 275 / 275 Other: # Voids 1 3 # Bowel Movements 0 <Jairo Mendoza - 09/23/17 08:23> Vital Signs 09/21/17 11:25 09/21/17 11:30 09/21/17 11:37 Temperature 97.9 F 97.9 F 97.8 F Pulse Rate 99 H 52 L 52 L Respiratory Rate 22 18 18 Blood Pressure 175/82 H 170/81 H Blood Pressure [Left Arm] 165/82 H Blood Pressure [Right Arm] 156/83 H Pulse Oximetry 98 99 99 09/21/17 12:57 09/21/17 14:00 09/21/17 15:20 Temperature 97.7 F 97.8 F 98.1 F Pulse Rate 52 L 54 L 58 L Respiratory Rate 17 18 18 Blood Pressure 177/83 H 173/79 H 166/83 H Blood Pressure [Left Arm] Blood Pressure [Right Arm] Pulse Oximetry 98 98 98 09/21/17 15:31 09/21/17 18:00 09/21/17 21:18 Temperature 97.9 F 97.7 F Pulse Rate 58 L 57 L 60 Respiratory Rate 18 19 18 Blood Pressure 156/81 H 154/76 H 162/68 H Blood Pressure [Left Arm] Blood Pressure [Right Arm] Pulse Oximetry 97 99 100 09/21/17 21:28 09/21/17 21:49 09/21/17 23:46 Temperature 98.4 F Pulse Rate 67 67 65 Respiratory Rate 17 Blood Pressure 168/64 H Blood Pressure [Left Arm] Blood Pressure [Right Arm] Pulse Oximetry 99 09/22/17 00:00 09/22/17 04:00 Temperature 98.8 F 98.4 F Pulse Rate 64 75 Respiratory Rate 19 16 Blood Pressure 102/56 L 155/81 H Blood Pressure [Left Arm] Blood Pressure [Right Arm] Pulse Oximetry 95 94 L Intake & Output 09/21/17 09/22/17 09/22/17 18:59 06:59 18:59 Intake Total 80 / 80 240 / 240 Output Total 350 / 350 Balance 80 / 80 -110 / -110 Weight 81.647 kg 84.6 kg Intake: IV 80 / 80 NS Inj 1,000 ML @ 80 mls/hr IV. 80 / 80 CONT .[id number] [facility] Rx#:[id number] Oral 240 / 240 Output: Urine 350 / 350 Other: # Voids 1 # Bowel Movements 1 Weight On Admission 84.8 kg <[facility] [place] - 09/22/17 11:08> - Constitutional no acute distress <[facility] 09/22/17 11:08> - Routine Respiratory Exam Present: decreased breath sounds, CTA bilaterally, wheezes. Absent: respiratory distress <[facility] 09/22/17 11:08> - Routine Cardiovascular Exam Present: RRR, S1, S2 <[facility] 09/22/17 11:08> - Routine Abdominal Exam Present: soft, normoactive bowel sounds. Absent: tenderness <[facility] 09/22/17 11:08> - Routine Extremities Exam Absent: cyanosis, clubbing, edema <[facility] 09/22/17 11:08> - Routine Skin Exam Present: intact. 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 Code(s): I12.9 - Hypertensive chronic kidney disease with stage 1 through stage 4 chronic kidney disease, or unspecified chronic kidney disease; N18.4 - Chronic kidney disease, stage 4 (severe) Status: Acute (3) History of pulmonary embolism Code(s): Z86.711 - Personal history of pulmonary embolism Status: Acute (4) HBP (high blood pressure) Code(s): I10 - Essential (primary) hypertension Status: Acute (5) Nutrition, metabolism, and development symptoms Code(s): R63.8 - Other symptoms and signs concerning food and fluid intake Status: Acute (6) DVT prophylaxis Status: Acute <Jairo Mendoza - 09/23/17 08:23> (1) Exertional dyspnea Code(s): R06.09 - Other forms of dyspnea Status: Acute Plan: Exertional dyspnea and chest pain with activity 1 year, progressively worsening , follows with Dr. Arian vallejo Scheduled for cardiac catheterization , however acute symptoms have brought him into the ED Differential includes ACS versus PE versus CHF Follow-up recommendations of private [employer] guard -Nitropaste. N.p.o. for possible catheterization today pending PT/INR this morning, ACS workup negative -Added amlodipine 5 mg as needed systolic greater than 160 -Consolidation on chest x-ray, CT chest negative -Starting IV fluids this morning due to renal insufficiency, follow-up with nephrology Low likelihood for PE; on Coumadin, not tachypneic or tachycardic continue to monitor vital signs BNP negative (2) CKD stage 4 secondary to hypertension Code(s): I12.9 - Hypertensive chronic kidney disease with stage 1 through stage 4 chronic kidney disease, or unspecified chronic kidney disease; N18.4 - Chronic kidney disease, stage 4 (severe) Status: Acute Plan: CKD stage IV, possibly due to elevated BPs Creatinine 2.8, baseline 2.3 Follow-up CMP today Per cardiology, follow-up nephrology consult; patient aware he might need dialysis. We will continue to follow. Follow-up urine sodium, urine creatinine Avoid all NSAIDs, caution with contrast, caution with fluids (3) History of pulmonary embolism Code(s): Z86.711 - Personal history of pulmonary embolism Status: Acute Plan: History of DVTs and PE of unknown source, on Coumadin Holding Coumadin, status post vitamin K 10 mg INR 2.6 Follow-up coags this morning (4) HBP (high blood pressure) Code(s): I10 - Essential (primary) hypertension Status: Acute Plan: 160-170/ 80s on admission, improved overnight, 164/89 this morning, heart rate improved to 70s from 50s Per cardiology, resume home medication metoprolol twice daily Cardiology, added amlodipine 5 mg for systolic over 160 Add Vasotec IV as needed systolic over 180, diastolic over 100 (5) Nutrition, metabolism, and development symptoms Code(s): R63.8 - Other symptoms and signs concerning food and fluid intake Status: Acute Plan: Fluids: N.p.o. for catheterization today, IV fluids ordered by cardiology Electrolytes: Follow-up daily and replete as needed Nutrition: N.p.o. for procedure (6) DVT prophylaxis Status: Acute Plan: SCDs, hold Coumadin Status post vitamin K, follow-up INR this morning., anticipating cardiac catheterization <Jeanette Quijano - 09/22/17 10:55> - Assessment and Plan 82-year-old male, history of CKD stage III, PE with chronic anticoagulation, hypertension, presents with increasing dyspnea and chest pain with activity. <Jeanette Quijano - 09/22/17 11:08> Discharge Planning: Discharge pending cardiology recommendations, completion of cardiac catheterization and possible stent placement, stabilization of creatinine, restarting anticoagulation following procedure <Jeanette Quijano - 09/22/17 11:08> - Attending Attestation The exam, history, and the medical decision-making described in the above note were completed with the assistance of the resident physician. I reviewed and agree with the findings presented. I attest that I had a [id number] encounter with the patient on the same day, and personally performed and documented my assessment and findings in the medical record. Miguel Angel DORSEY <Jairo Mendoza - 09/23/17 08:23>
[2017-09-22 11:10] LABS: Alkaline Phosphatase 72 U/L (45-117); Creatine Kinase 109 U/L (39-308); Total Protein 7.7 g/dL (6.4-8.2)
[2017-09-22 12:50] LABS: Baso % (Auto) 0.1 % (0.0-2.0); Hemoglobin 13.2 gm/dL (13.0-17.0); Lymph # (Auto) 0.6 th/mm3 (1.0-4.8); Lymph % (Auto) 7.1 % (9.0-44.0); Mean Corpuscular HGB Conc 33.9 % (32.0-36.0); Mean Corpuscular Volume 97.3 fL (80.0-100.0); Mean Platelet Volume 8.3 fL (7.0-11.0); Mono # (Auto) 0.1 th/mm3 (0.0-0.9); Mono % (Auto) 0.9 % (0.0-8.0); Neut # (Auto) 7.5 th/mm3 (1.8-7.7); Neut % (Auto) 91.9 % (16.0-70.0); Platelet Count 168 th/mm3 (150-450); Red Blood Count 4.01 mil/mm3 (4.50-5.90); Red Cell Distribution Width 13.6 % (11.6-17.2); White Blood Count 8.1 th/mm3 (4.0-11.0)
[2017-09-22 12:56] LABS: INR 1.2 Ratio; Prothrombin Time 12.3 sec (9.8-11.6)
[2017-09-22] MEDS ORDERED: Heparin/NS PF Inj 1,500 ML ONE (13:30)
[2017-09-22] MEDS ORDERED: fentaNYL Citrate Inj 100 MCG/2 ML Ampul ONE (13:32)
[2017-09-22] MEDS ORDERED: MethylPREDNISolone Sod Succinate Inj 125 MG/2 ML Vial ONE (13:33)
[2017-09-22] MEDS ORDERED: Heparin 10,000 UNITS/10 ML Vial (for IV use) ONE (14:01)
[2017-09-22] MEDS ORDERED: Morphine Sulfate Inj 2 MG/ML Vial ONE (14:58)
--- NOTE | 2017-09-22 15:08 | CATHPROC ---
[facility] HIS Report Study Information Study Number Admission Scheduled Start Study Start [id number] Sep 21 2017 2:42PM 09/22/2017 Sep 22 2017 1:09PM [place] Service Cath Endovascular Study Admit Source Facility Department Other [facility] - Director Of Assisted Living Physician and Clinical Staff Initial MD Don, Araceli Buzzsaw Operator Helper Scott RN, Neo Recorder Hamida Melendez ,RT(R) Scrub Mago Buck,RT(R) Procedures Performed Procedure Location (Site) Vessel Name Coronary Angiograms LCA Left Coronary Coronary Angiograms RCA Right Coronary Drug Eluting Inflatio LAD Prox Left Coronary L Heart Cath PTCA LAD Prox Left Coronary Wire insertion Fem Art (right) Femoral Art Equipment Time Telecommunications Manager Description Size Mfg Part Number Used/Scraped [id number] 14:05 MARIE [employer] WIRE, [place] WorldWATER 180CM 180CM Used *[id number] TRANSDUCER, TRUWAVE [id number] 13:11 MysteryD GIRON * Used W/STOCKCOCK *[id number] 14:04 [employer] SCI[employer]IFIC VL4 GUIDE CATHETER RUNWAY FR 6 Used *[id number] INTRODUCER SET, 13:11 [employer]. FR 5 [id number] *[id number] Used MICROPUNCTURE STIFF INTRODUCER SET, 14:02 [employer]. FR 5 [id number] *[id number] Used MICROPUNCTURE STIFF [phone] *[id number] 538-422 *[id number] 538-421 *[id number] 14:37 DAIG/ST. IGOR MEDICAL ANGIOSEAL, FR6 VIP FR 6 Used *[id number] 13:11 STYLHUNT BLANKET,WARM AIR CCL * Used *[id number] 13:11 STYLHUNT PACK, CCL CUSTOM * Used *[id number] 13:11 ascentify PACER PEN, SKIN DUAL W/ RULER * Used *[id number] 14:11 MEDTRONIC BALLOON, 2.5 X 12MM EUPHORA 12MM Used *[id number] BALLOON, 2.75 X 15MM NC [id number] 14:28 MEDTRONIC 15MM Used EUPHORA *[id number] 14:23 MEDTRONIC STENT, 2.75 18MM SRIRAM 2.75 18MM Used *[id number] 14:21 Sekal AS MEDICAL 30 CARLEEN INDEFLATOR Used *[id number] 14:05 Sekal AS MEDICAL SHEATH, FR6.5 PRELUDE 11CM FR 6.5 038ACT Used *[id number] 13:11 Sekal AS MEDICAL WIRE, 3MMJ .035 180CM 180CM Used *[id number] PROBE COVER, STERILE [id number] 13:11 Zappli MEDICAL * Used ULTRASOUND W/ GEL *9260866 [id number] 13:11 NAMIC MANIFOLD, 4 PORT * Used *[id number] 13:11 NYCOMED OMNIPAQUE, 350 MG, 150ML 150ML [id number] Used [id number] 13:11 [employer] MEDICAL SHEATH, FR4 TERUMO (10CM) FR 4 Used *[id number] Equipment Model, Serial, Lot Number and Expiration Data Description Model Number Serial Number Lot Number Expiration Date ANGIOSEAL, FR6 VIP [id number] 03-25-2018 STENT, 2.75 18MM SRIRAM [id number] 02-04-2019 VL4 GUIDE CATHETER RUNWAY [id number] 05-13-2020 History: Current Medications Medication Dosage/Unit Route Frequency Last Date/Time Taken Beta Gumaro ASA Coumadin NTG SL History: Allergies Allergy Reaction iohexol Swelling of Lip/Tongue/Throat diatrizoate meglumine Swelling gadoteridol Swelling of Lip/Tongue/Throat gadodiamide Swelling of Lip/Tongue/Throat iodixanol Swelling of Lip/Tongue/Throat gadobenic acid Swelling shellfish derived SWELLING History: Risk Factors Family History of Hypertension Dyslipidemia Previous CT Previous Heart Failure Premature CAD Yes Yes No Yes No Prior Valve Prior PCI Prior PCIDate Prior CABG Surgery No Yes 06/10/2005 No Cerebrovascular Peripheral Artery Chronic Lung On Dialysis Diabetes Disease Disease Disease No No No No No History: Stress Tests Stress or Imaging Studies Performed Yes Standard Exercise Stress Test No Stress Echo No Stress Test SPECT Stress Test SPECT Result Stress Test SPECT Ischemia Risk/Extent Yes Positive Intermediate Stress Test CMR No Cardiac CTA Coronary Calcium Score No No History: Other Current Smoker Method Quit Packs a Day Years Used Pack Years No Cigarettes 44 Years Ago 1 14 14 Labs Hgb (g/dl) Hct (%) WBC (l/cumm) Platelets (thousands) 11.60-17.00 35.00-51.00 4.00-11.00 150.00-450.00 12.6 37.6 6 155 Glucose (mg/dl) BUN (mg/dl) Creatinine (mg/dl) BUN:Creatinine (1:x) 74.00-106.00 7.00-18.00 0.50-1.30 10.00-20.00 98 29 2.8 10.4 Na (meq/l) K (meq/l) 136.00-145.00 3.50-5.10 143 5.2 INR (PTT:PT) 0.90-1.10 1.2 Troponin I (ng/ml) CPK-MB (ng/ML) 0.02-0.05 0.50-3.60 0.02 Not Drawn Medication Medication Total Dose (Bolus/Oral) Medication Total Dosage/Unit 1% XYLOCAINE 20 mL ASPIRIN 325 mg ATROPINE 0.5 mg BENADRYL 50 mg FENTANYL 100 mcg HEPARIN 6000 units MORPHINE 2 mg NTG (IC) 600 mcg PLAVIX 600 mg SOLU-MEDROL 25 mg VERSED 2 mg Medications (Bolus/Oral) Medication Time Given Dosage/Unit Administered By Reason BENADRYL 09/22/2017 1:42:00 PM 50 mg Neo Chavez RN 50 mg BENADRYL given in lab by Neo Chavez RN in Left Antecubital via Peripheral IV. Ordered by Araceli Dickinson. SOLU-MEDROL 09/22/2017 1:43:19 PM 25 mg Neo Chavez RN 25 mg SOLU-MEDROL given in lab by Neo Chavez RN in Left Antecubital via Peripheral IV. Ordered by Araceli Rincon. 1% XYLOCAINE 09/22/2017 1:46:40 PM 20 mL Araceli Don 20 mL 1% XYLOCAINE given in lab by Araceli Don in Right Groin via Subcutaneous. Ordered by Araceli Cody. VERSED 09/22/2017 1:46:54 PM 2 mg Neo Chavez RN 2 mg VERSED given in lab by Neo Chavez RN in Left Antecubital via Peripheral IV. Ordered by Araceli Don. FENTANYL 09/22/2017 1:47:09 PM 50 mcg Neo Chavez RN 50 mcg FENTANYL given in lab by Neo Chavez RN in Left Antecubital via Peripheral IV. Ordered by Araceli Porter. HEPARIN 09/22/2017 2:03:46 PM 6000 units Neo Chavez RN 6000 units HEPARIN given in lab by Neo Chavez RN in Left Antecubital via Peripheral IV. Ordered by Araceli Don. NTG (IC) 09/22/2017 2:29:54 PM 300 mcg Araceli Don 300 mcg NTG (IC) given in lab by Araceli Don in Right Groin via Intra-coronary. Ordered by Araceli Cody. FENTANYL 09/22/2017 2:30:40 PM 50 mcg Neo Chavez RN 50 mcg FENTANYL given in lab by Neo Chavez RN in Left Antecubital via Peripheral IV. Ordered by Araceli Porter. NTG (IC) 09/22/2017 2:34:02 PM 300 mcg Daniella Donun 300 mcg NTG (IC) given in lab by Araceli Don in Right Groin via Intra-coronary. Ordered by Araceli Cody. ATROPINE 09/22/2017 2:35:33 PM 0.5 mg Neo Chavez RN 0.5 mg ATROPINE given in lab by Neo Chavez RN in Left Antecubital via Peripheral IV. Ordered by Araceli Porter. ASPIRIN 09/22/2017 2:48:19 PM 325 mg Neo Chavez RN 325 mg ASPIRIN given in lab by Neo Chavez RN via Subcutaneous. Ordered by Araceli Don. PLAVIX 09/22/2017 2:48:35 PM 600 mg Neo Chavez RN 600 mg PLAVIX given in lab by Neo Chavez RN via Oral. Ordered by Araceli Don. MORPHINE 09/22/2017 2:59:33 PM 2 mg Neo Chavez RN 2 mg MORPHINE given in lab by Neo Chavez RN in Left Antecubital via Peripheral IV. Ordered by Araceli Cody. Medication (Drip) Medication Time Given Dosage/Unit Concentration/Unit Diluent (ml) Solution IV Solutions 09/22/2017 1:30:15 PM 50 mL (IV) NaCl .9 Patient arrived on IV Solutions via Peripheral IV. Pump/Drip Flow using NaCl .9. Initial Case Assessment Cardiovascular HR Rhythm NIBP 72 sr 171/102 Edema Present Skin color Skin None Normal Warm Dry Circulatory - Right Pulses Dorsalis Pedis Femoral 2 2 Scale (0,1,2,3,4,d) Circulatory - Left Pulses Dorsalis Pedis Femoral 2 2 Scale (0,1,2,3,4,d) Circulatory - Lower Extremities Color Lower Right Color Lower Left Normal Normal Neurological State Oriented to time-place- Alert Moves all extremities person Respiration - General Respiration Rate SpO2 (%) (B/min) 15 97 Final Case Assessment Cardiovascular HR Rhythm NIBP 77 sr 125/83 Edema Present Skin color Skin None Normal Warm Dry Circulatory - Right Pulses Dorsalis Pedis Femoral 2 2 Scale (0,1,2,3,4,d) Circulatory - Left Pulses Dorsalis Pedis Femoral 2 2 Scale (0,1,2,3,4,d) Circulatory - Lower Extremities Color Lower Right Color Lower Left Normal Normal Neurological State Oriented to time-place- Alert Moves all extremities person Respiration - General Respiration Rate SpO2 (%) (B/min) 15 97 Chronological Log Time Study Chronological Log 13:24:14 Patient arrived via Bed. 13:24:14 Patient Name, D.O.B, / Armband Verified By R.N. Vitals capture started with the following parameters, Patient=Adult, Interval=5 min, Initial Pr podekf=344 mmHg, 13:29:43 Deflation Rate=5 mmHg, Cuff placed on Left Arm 13:30:04 Consent signed by the physician and the patient and verified by the Director Of Assisted Living staff. 13:30:05 Pre-op and post- op instructions given; patient acknowledges understanding of instructions. 13:30:06 Verbal Stimulation=2 Physical Stimulation=2 Airway=2 Respiration=2 TOTAL=8. (0=absent, 1=li mited, 2=present) 13:30:09 Patient has been NPO for More than 6Hrs. 13:30:11 Skin Breakdown-none per pt 13:30:13 Patient Warmer Placed on the Table. 13:30:14 Jacques Prominences Protected 13:30:14 A # 20 IV was noted in the Antecubital (right). Grade = 0 13:30:15 Patient arrived on IV Solutions via Peripheral IV. Pump/Drip Flow using NaCl .9. 13:30:15 History and physical on the chart or being dictated. Assessment: Initial Case, HR=72 BPM, Rhythm=sr, ARZU=621/102 mmhg, Edema=None, Color=Normal, Sk in = Warm, Dry Right Pulses: Mulugeta Ped=2, Femoral=2 Left Pulses: Mulugeta Ped=2, Femoral=2 13:30:16 Lower Right Extremities: Color=Normal Lower Left Extremities: Color=Normal Neurological: State=Alert, Ox3, GALLO Respiration: Resp=15 B/min, SpO2=97 % 13:30:22 HR=70 bpm, XIOE=117/89 mmhg, SpO2=97.0 %, Pain=0, Hussain=10, Barrett=2 13:35:24 HR=72 bpm, KWDF=162/102 mmhg, SpO2=98.0 %, Pain=0, Hussain=10, Barrett=2 13:37:15 Reference ECG taken 13:39:30 MD arrived. 13:40:33 HR=72 bpm, GRQI=151/70 mmhg, SpO2=97.0 %, Resp=16 B/min, Pain=0, Hussain=10, Barrett=2 13:42:00 50 mg BENADRYL given in lab by Neo Chavez RN in Left Antecubital via Peripheral IV. Order ed by Araceli Don. 25 mg SOLU-MEDROL given in lab by Neo Chavez RN in Left Antecubital via Peripheral IV. Ordere d by Arian, 13:43:19 Humrejiun. 13:43:45 A # 20 IV was noted in the Antecubital (left). Grade = 0 13:44:20 Pressure channel 1 zeroed. Time Out. Correct patient, correct procedure, correct physician, labs, allergies, and equipment verified with cath lab manager 13:45:12 team present. Fire risk assesment completed (see hard stop sheet for coding). Time Out Conc urred by and individual staff in procedure. 13:45:26 HR=70 bpm, NLDS=564/95 mmhg, SpO2=96.0 %, Pain=0, Hussain=10, Barrett=2 13:46:33 Case Start 20 mL 1% XYLOCAINE given in lab by Araceli Don in Right Groin via Subcutaneous. Ordered by Arian, 13:46:40 Humayun. 13:46:54 2 mg VERSED given in lab by Neo Chavez RN in Left Antecubital via Peripheral IV. Ordered by Araceli Don. 13:47:09 50 mcg FENTANYL given in lab by Neo Chavez RN in Left Antecubital via Peripheral IV. Orde red by Araceli Don. 13:50:22 Access site was Right Femoral Artery. 13:50:25 HR=68 bpm, MQGR=003/94 mmhg, SpO2=97.0 %, Resp=11 B/min, Pain=0, Hussain=10, Barrett=2 A INTRODUCER SET, MICROPUNCTURE STIFF FR 5 was advanced into the Fem Art (right) using the Perc utaneous 13:51:23 technique. A SHEATH, FR4 TERUMO (10CM) FR 4 was exchanged in the Fem Art (right). This was necessary in or angelique to 13:51:29 accomodate a larger catheter. A JR 4.0 INFINITI CATHETER FR 4 was advanced over a wire. OMNIPAQUE, 350 MG, 150ML 150ML was us ed for 13:52:31 injections. Recorded Pressure: Ao, HR=65, Condition=Condition 1 13:54:22 (Aorta) Ao 158/70/106 13:54:54 The RCA was injected and visualized at various angles. OMNIPAQUE, 350 MG, 150ML 150ML used . 13:55:22 HR=65 bpm, KFON=962/80 mmhg, SpO2=92.0 %, Resp=16 B/min, Pain=0, Hussain=10, Barrett=2 13:55:58 Catheter was removed A JL 5.0 INFINITI CATHETER FR 4 was advanced over a wire. OMNIPAQUE, 350 MG, 150ML 150ML was us ed for 13:56:23 injections. 13:58:36 The LCA was injected and visualized at various angles. OMNIPAQUE, 350 MG, 150ML 150ML used . 14:00:25 HR=68 bpm, UUGV=370/82 mmhg, SpO2=92.0 %, Pain=0, Hussain=10, Barrett=2 14:00:30 Catheter was removed A SHEATH, FR6.5 PRELUDE 11CM FR 6.5 was exchanged in the Fem Art (right). This was necessary in order to 14:02:42 accomodate a larger catheter. 14:03:46 6000 units HEPARIN given in lab by Neo Chavez RN in Left Antecubital via Peripheral IV. O rdered by Araceli Don. A VL4 GUIDE CATHETER RUNWAY FR 6 was advanced over a wire. OMNIPAQUE, 350 MG, 150ML 150ML was u sed for 14:05:21 injections. 14:05:24 HR=66 bpm, GSKE=731/81 mmhg, SpO2=94.0 %, Pain=0, Hussain=10, Barrett=2 14:09:01 A WIRE, ASAHI PROWATER 180CM 180CM was inserted via Fem Art (right). 14:09:26 Activated Clotting Time Drawn 14::21 HR=68 bpm, KZNC=515/83 mmhg, SpO2=93.0 %, Resp=16 B/min, Pain=0, Hussain=10, Barrett=2 14:13:22 Wire removed for re-shaping 14:13:37 A WIRE, ASAHI PROWATER 180CM 180CM was inserted via Fem Art (right). 14:15:22 HR=64 bpm, DKAT=076/87 mmhg, SpO2=94.0 %, Resp=11 B/min, Pain=0, Hussain=10, Barrett=2 14:16:01 ACT (Normal Range 90-180) = 337 14:17:41 Interventional wire has crossed the lesion A BALLOON, 2.5 X 12MM EUPHORA 12MM was inserted over WIRE, ASAHI PROWATER 180CM 180CM via the F em Art 14:18:47 (right). A BALLOON, 2.5 X 12MM EUPHORA 12MM over a WIRE, ASAHI PROWATER 180CM 180CM in the LAD Prox was inflated 14:20:20 using a 30 CARLEEN INDEFLATOR at 10 carleen for 35 sec. 14:20:23 HR=63 bpm, ZABV=574/77 mmhg, SpO2=95.0 %, Pain=0, Hussain=10, Barrett=2 A BALLOON, 2.5 X 12MM EUPHORA 12MM over a WIRE, ASAHI PROWATER 180CM 180CM in the LAD Prox was inflated 14:21:22 using a 30 CARLEEN INDEFLATOR at 8 carleen for 25 sec. 14:22:29 Balloon Removed. A STENT, 2.75 18MM SRIRAM 2.75 18MM was advanced through a VL4 GUIDE CATHETER RUNWAY FR 6 over a WIRE, 14:24:28 ASAHI PROWATER 180CM 180CM. 14:26:07 HR=63 bpm, BKST=884/95 mmhg, SpO2=96.0 %, Pain=0, Hussain=10, Barrett=2 A STENT, 2.75 18MM SRIRAM 2.75 18MM was deployed using a 30 CARLEEN INDEFLATOR at 12 atmospheres for 27 seconds 14:26:23 in the LAD Prox. 14:27:31 Delivery device removed 14:29:54 300 mcg NTG (IC) given in lab by Araceli Don in Right Groin via Intra-coronary. Ordershane kenyon by Araceli Don. 14:30:40 50 mcg FENTANYL given in lab by Neo Chavez RN in Left Antecubital via Peripheral IV. Orde red by Araceli Don. A BALLOON, 2.75 X 15MM NC EUPHORA 15MM was inserted over WIRE, ASAHI PROWATER 180CM 180CM via t he Fem 14:31:04 Art (right). 14:31:14 HR=67 bpm, LUIH=014/107 mmhg, SpO2=97.0 %, Pain=0, Hussain=10, Barrett=2 A BALLOON, 2.75 X 15MM NC EUPHORA 15MM over a WIRE, ASAHI PROWATER 180CM 180CM in the LAD Prox was 14:31:46 inflated using a 30 CARLEEN INDEFLATOR at 15 carleen for 22 sec. 14:32:56 Balloon Removed. 14:34:02 300 mcg NTG (IC) given in lab by Araceli Don in Right Groin via Intra-coronary. Ordershane kenyon by Araceli Don. 14:34:57 Wire removed 14:34:59 Catheter was removed 14:35:32 HR=58 bpm, SNEM=737/76 mmhg, SpO2=90.0 %, Resp=16 B/min, Pain=0, Hussain=10, Barrett=2 14:35:33 0.5 mg ATROPINE given in lab by Neo Chavez RN in Left Antecubital via Peripheral IV. Ordshane red by Araceli Don. 14:36:11 An injection in the Fem Art (right) was made through the SHEATH, FR6.5 PRELUDE 11CM FR 6.5. 14:37:38 ANGIOSEAL, FR6 VIP FR 6 placement in the Fem Art (right) 14:40:23 HR=39 bpm, NIBP=98/59 mmhg, SpO2=95.0 %, Resp=16 B/min, Pain=0, Hussain=10, Barrett=2 Assessment: Final Case, HR=77 BPM, Rhythm=sr, PKQQ=604/83 mmhg, Edema=None, Color=Normal, Skin = Warm, Dry Right Pulses: Mulugeta Ped=2, Femoral=2 Left Pulses: Mulugeta Ped=2, Femoral=2 14:41:20 Lower Right Extremities: Color=Normal Lower Left Extremities: Color=Normal Neurological: State=Alert, Ox3, GALLO Respiration: Resp=15 B/min, SpO2=97 % 14:41:39 NIBP STAT measurement started. 14:42:47 HR=46 bpm, OBMX=426/65 mmhg, SpO2=92.0 % 14:44:18 NIBP STAT measurement started. 14:44:45 HR=79 bpm, WSKE=439/83 mmhg, SpO2=89.0 %, Resp=13 B/min, Pain=0, Hussain=10, Barrett=2 14:45:49 HR=78 bpm, ZGFM=272/72 mmhg, SpO2=92.0 %, Pain=0, Hussain=10, Barrett=2 14:48:19 325 mg ASPIRIN given in lab by Neo Chavez RN via Subcutaneous. Ordered by Daniella Don. 14:48:35 600 mg PLAVIX given in lab by Neo Chavez RN via Oral. Ordered by Araceli Don. 14:49:23 Catheter(s) removed without difficulty 14:49:27 Sterile dressing applied to site 14:49:29 No case complications noted. 14:49:29 Cine recording checked. 14:49:31 Bedside Report will be given. 14:49:36 Implantable Device card placed in patient's chart. 14:49:40 A Left Heart Cath was performed. 14:51:00 Case End (Physician broke scrub) 14:51:02 HR=79 bpm, PESX=437/90 mmhg, SpO2=98.0 %, Resp=16 B/min, Pain=0, Hussain=10, Barrett=2 14:56:01 HR=79 bpm, FGXS=936/83 mmhg, SpO2=97.0 %, Pain=0, Hussain=10, Barrett=2 14:59:33 2 mg MORPHINE given in lab by Neo Chavez RN in Left Antecubital via Peripheral IV. Order ed by Araceli Don. 15:00:28 HR=78 bpm, EYPI=930/97 mmhg, SpO2=96.0 % 15:02:30 Patient moved to stretcher End Study - Contrast Media Used In Study Contrast Total Opened (mL) Total Used (mL) Total Wasted (mL) Omnipaque 85 85 0 End Study - Maximum Contrast Load Max Contrast Load (mL) 151.1 End Study - Radiation Exposure Fluoro Time (minutes) 13.8 End Study - Sheaths Sheaths Pulled By Sheath Hold Time (min) Araceli Don End Study - Patient Disposition Complications Transferred To Interventional Outcome No Critical Care Bed successful
[2017-09-22] MEDS ORDERED: Atropine Inj 1 MG/10 ML Syringe ONE (15:19)
--- NOTE | 2017-09-22 15:37 | MA ---
cc: Araceli Don MD, Lee Purandre DATE: 09/22/2017 INDICATIONS FOR CATHETERIZATION: 1. Unstable angina, abnormal nuclear stress test. 2. Elevated creatinine with risk of dialysis with marked chronic kidney disease, hence dye sparing techniques used as far as possible. PROCEDURES: 1. Sedation. 2. Left heart catheterization with bilateral coronaries. No LV gram done. 3. Intracoronary stent placement to the LAD with post-dilation with a high-pressure balloon. 4. Right femoral angiogram followed by Angio-Seal. PROCEDURAL STATEMENT: The patient was draped and prepped in usual manner. Right femoral artery was entered using a micropuncture technique. Via the 4-Bhutanese sheath, left and right coronary catheters were used to intubate the left and right coronaries. Multiple angiographic views were carried out. The 4 Bhutanese sheath was exchanged for a 6 Bhutanese sheath. The patient was given heparin 6000 units. ACT of 337 was obtained. Via the 6-Bhutanese sheath, a left Voda catheter was used to intubate the left main. A 0.014 Prowater wire was passed with moderate difficulty through the high-grade long proximal LAD stenosis. Following this, a 2.5 x 12 mm balloon was inflated in two separate positions in the proximal LAD lesion. Following this, a 2.75 x 18 mm [place] stent was passed across the lesion and deployed at nominal pressures. It was post-dilated to 14 atmospheres using a 2.75 Euphora noncompliant balloon. Intracoronary nitroglycerin was given. Check angiograms were performed. At the end of procedure, the right femoral angiogram was performed and an Angio-Seal placed. At this point, the patient became bradycardic and atropine was given. The patient recovered and was transferred to his room in stable condition. The patient has some chest pain. FINDINGS: HEMODYNAMICS: Aortic pressure is 158/70 with a mean of 106. LEFT VENTRICULOGRAM: Not done. LV not entered because of interest of contrast sparing given the patient's chronic kidney disease. CORONARY ARTERIES: The left main had mild 25% disease. There is heavy calcification of the LAD and circumflex vessels. In the distal LAD, there was evidence of a previously placed stent that was widely patent. In the proximal LAD just before a large septal thermograph operator and including the septal thermograph operator, there was a long 13 mm stenosis, which was complex and 95% at its maximal stenosis. There was evidence of a small diagonal branch that came off this area with evidence of significant ostial disease. Following stent placement, the small vessel was not visible and felt to have been jailed. Intracoronary nitroglycerin was given. The patient did have some mild chest pain following this. The LAD had a 95% stenosis in its proximal section, which was reduced to 0% with the [place] 2.75 x 18 mm drug eluting stent. The circumflex artery had a large first obtuse marginal branch that bifurcated into two branches. It had some mild diffuse disease throughout its length of about 25%. There was evidence of mild diffuse 25% disease of the entire right coronary, there was evidence of a previously placed stent in the proximal right coronary, which was widely patent.There is a large posterior descending artery and a small to medium first posterolateral branch and a small second posterolateral branch. PLAN: We will plan to discharge the patient tomorrow. Followup will be in approximately 1-2 weeks in my office. The patient is to continue on aspirin and Plavix indefinitely.Check labs in morning and watch for renal insufficiency following dye load in a patient with chronic renal failure. CONCLUSION: Successful stenting of a proximal left anterior descending artery 95 % stenosis to 0% using a 2.75 x 18 mm [place] drug-eluting stent. Angio-Seal used to seal the right femoral artery. Sedation used Versed and fentanyl. MD HAL Leyva/MACIEJ , 03:07 PM , 03:20 PM RAFAT
[2017-09-22] MEDS ORDERED: Morphine Sulfate Inj 2 MG/ML Vial IV.PUSH PRN (15:43)
[2017-09-22] MEDS ORDERED: Nitroglycerin Drip Premix 50 MG/250 ML BOTTLE IV.CONT PRN (15:50)
[2017-09-22] MEDS: amLODIPine 5 MG Tablet PO SCH (16:03)
--- NOTE | 2017-09-22 17:33 | P.PNNP ---
Subjective Interval history: Denies any shortness of breath. Reports some discomfort between shoulder blades. S/p heart cath and stent placement. <Jeny Petersen - Last Filed: 09/22/17 17:25> Physical Exam Vital signs: Vital Signs 09/21/17 18:00 09/21/17 21:18 09/21/17 21:28 Temperature 97.7 F 98.4 F Pulse Rate 57 L 60 67 Respiratory Rate 19 18 17 Blood Pressure 154/76 H 162/68 H 168/64 H Pulse Oximetry 99 100 99 09/21/17 21:49 09/21/17 23:46 09/22/17 00:00 Temperature 98.8 F Pulse Rate 67 65 64 Respiratory Rate 19 Blood Pressure 102/56 L Pulse Oximetry 95 09/22/17 04:00 09/22/17 08:00 09/22/17 12:00 Temperature 98.4 F 97.9 F 97.8 F Pulse Rate 75 60 65 Respiratory Rate 16 18 16 Blood Pressure 155/81 H 164/89 H 162/80 H Pulse Oximetry 94 L 94 L 93 L Intake & Output 09/21/17 09/22/17 09/22/17 18:59 06:59 18:59 Intake Total 80 / 80 240 / 240 Output Total 350 / 350 Balance 80 / 80 -110 / -110 Weight 81.647 kg 84.6 kg Intake: IV 80 / 80 NS Inj 1,000 ML @ 80 mls/hr IV. 80 / 80 CONT .[id number] VIVI Rx#:[id number] Oral 240 / 240 Output: Urine 350 / 350 Other: # Voids 1 # Bowel Movements 1 Weight On Admission 84.8 kg - Constitutional no acute distress - Routine HEENT Exam Head: Present: normocephalic ENT: Present: mucous membranes moist - Routine Neck Exam Present: supple. Absent: JVD - Routine Respiratory Exam Present: CTA bilaterally. Absent: rales, rhonchi, wheezes - Routine Cardiovascular Exam Present: RRR. Absent: murmur - Routine Abdominal Exam Present: soft, normoactive bowel sounds. Absent: tenderness - Routine Extremities Exam Absent: edema - Routine Skin Exam Present: dry, warm Comments: Dressing right groin - Routine Neurological Exam Present: alert, oriented X3 - Routine Psychiatric Exam Present: cooperative <Jeny Petersen - Last Filed: 09/22/17 17:25> Vital signs: Vital Signs 09/21/17 21:18 09/21/17 21:28 09/21/17 21:49 Temperature 98.4 F Pulse Rate 60 67 67 Respiratory Rate 18 17 Blood Pressure 162/68 H 168/64 H Pulse Oximetry 100 99 09/21/17 23:46 09/22/17 00:00 09/22/17 04:00 Temperature 98.8 F 98.4 F Pulse Rate 65 64 75 Respiratory Rate 19 16 Blood Pressure 102/56 L 155/81 H Pulse Oximetry 95 94 L 09/22/17 08:00 09/22/17 12:00 09/22/17 15:40 Temperature 97.9 F 97.8 F 97.8 F Pulse Rate 60 65 77 Respiratory Rate 18 16 16 Blood Pressure 164/89 H 162/80 H 184/106 H Pulse Oximetry 94 L 93 L 97 09/22/17 15:55 09/22/17 16:00 09/22/17 16:10 Temperature 97.9 F Pulse Rate 77 74 68 Respiratory Rate 16 16 16 Blood Pressure 192/100 H 194/111 H 187/96 H Pulse Oximetry 98 98 98 09/22/17 16:25 09/22/17 16:55 09/22/17 17:25 Temperature Pulse Rate 68 83 77 Respiratory Rate 16 16 16 Blood Pressure 179/91 H 196/110 H 201/116 H Pulse Oximetry 97 99 96 09/22/17 17:55 Temperature Pulse Rate 76 Respiratory Rate 18 Blood Pressure 188/98 H Pulse Oximetry 96 Intake & Output 09/21/17 09/22/17 09/22/17 18:59 06:59 18:59 Intake Total 80 / 80 240 / 240 480 / 480 Output Total 350 / 350 300 / 300 Balance 80 / 80 -110 / -110 180 / 180 Weight 81.647 kg 84.6 kg Intake: IV 80 / 80 NS Inj 1,000 ML @ 80 mls/hr IV. 80 / 80 CONT .[id number] VIVI Rx#:[id number] Oral 240 / 240 480 / 480 Output: Urine 350 / 350 300 / 300 Other: # Voids 1 # Bowel Movements 1 Weight On Admission 84.8 kg <Andrey Medrano - Last Filed: 09/22/17 18:18> Assessment and Plan - Plan Chronic kidney disease stage IV, followed by Dr. Cueva outpatient. His creatinine now is 2.8 and GFR is 22 on day of consult. He was told that he had a GFR of around 17 about two weeks ago Creatinine 2.77 ->2.88 today S/P heart cath with stent placement Continue IVF Oral fluids encouraged Will monitor urinary output and BMP Labs in AM <Jeny Petersen - Last Filed: 09/22/17 17:25> - Plan Patient seen and examined, agree with above. Post Cardiac Cath. and stent. Follow the urine out put and BMP. <Andrey Medrano - Last Filed: 09/22/17 18:18>
[2017-09-23] MEDS: Metoprolol Tartrate 25 MG Tablet PO SCH (09:44)
[2017-09-23] MEDS: Gabapentin 300 MG Capsule PO SCH (09:44)
[2017-09-23] MEDS: amLODIPine 5 MG Tablet PO SCH (09:44)
--- NOTE | 2017-09-23 09:52 | P.PNCA ---
Subjective Interval history: Pt anxious to go home this AM. 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 No further chest pain. Groin shows no sign of bleeding or infection. Discussed risk regarding his kidneys. Will check STAT BMP prior to discharge, once results come in, will notify the patient at home. Discussed importance of triple therapy with ASA, plavix and warfarin. Pt understands risks and benefits. Physical Exam Vital signs: Vital Signs 09/22/17 12:00 09/22/17 15:40 09/22/17 15:55 Temperature 97.8 F 97.8 F Pulse Rate 65 77 77 Respiratory Rate 16 16 16 Blood Pressure 162/80 H 184/106 H 192/100 H Pulse Oximetry 93 L 97 98 09/22/17 16:00 09/22/17 16:10 09/22/17 16:25 Temperature 97.9 F Pulse Rate 74 68 68 Respiratory Rate 16 16 16 Blood Pressure 194/111 H 187/96 H 179/91 H Pulse Oximetry 98 98 97 09/22/17 16:55 09/22/17 17:25 09/22/17 17:55 Temperature Pulse Rate 83 77 76 Respiratory Rate 16 16 18 Blood Pressure 196/110 H 201/116 H 188/98 H Pulse Oximetry 99 96 96 09/22/17 18:25 09/22/17 19:00 09/22/17 20:00 Temperature 98.2 F Pulse Rate 78 83 74 Respiratory Rate 18 18 Blood Pressure 179/104 H 171/95 H Pulse Oximetry 98 95 09/22/17 21:00 09/22/17 22:00 09/22/17 23:00 Temperature Pulse Rate 80 72 70 Respiratory Rate Blood Pressure Pulse Oximetry 09/23/17 00:00 09/23/17 01:00 09/23/17 02:00 Temperature 97.8 F Pulse Rate 74 74 60 Respiratory Rate 18 Blood Pressure 126/70 Pulse Oximetry 94 L 09/23/17 03:00 09/23/17 04:00 09/23/17 05:00 Temperature 97.8 F Pulse Rate 60 64 58 L Respiratory Rate 18 Blood Pressure 140/71 Pulse Oximetry 96 09/23/17 06:00 Temperature Pulse Rate 60 Respiratory Rate Blood Pressure Pulse Oximetry Intake & Output 09/22/17 09/23/17 09/23/17 18:59 06:59 18:59 Intake Total 1200 / 1200 1760 / 1760 Output Total 300 / 300 275 / 275 Balance 900 / 900 1485 / 1485 Weight 84.9 kg Intake: IV 800 / 800 NS Inj 1,000 ML @ 150 mls/hr IV 800 / 800 .CONT .Q6H40M VIVI Rx#:[id number] Oral 1200 / 1200 960 / 960 Output: Urine 300 / 300 275 / 275 Other: # Voids 1 3 # Bowel Movements 0 - Constitutional no acute distress - Routine HEENT Exam Head: Present: normocephalic Eye: Present: normal accommodation ENT: Present: mucous membranes moist - Routine Neck Exam Present: supple - Routine Respiratory Exam Present: CTA bilaterally - Routine Cardiovascular Exam Present: RRR - Routine Abdominal Exam Present: soft - Routine Extremities Exam Comments: right groin dressing removed - Routine Skin Exam Present: intact, ecchymosis - Routine Neurological Exam Present: alert, oriented X3 - Detailed Neurological Exam: Coma Scale Eye Opening: Spontaneous Verbal Response: Oriented Motor Response: [place] commands [place] Coma Scale Total: 15 - Routine Psychiatric Exam Present: normal affect, cooperative, good judgment Assessment and Plan - Plan Chest pain SOB CKD HTN Hyperlipidemia -Status post heart cath and LAD stent. RX left on chart for plavix. Educated on importance of. Pt also instructed to resume home warfarin. Advised to resume all home medications, including BB. -Intolerant to statins. Will follow up in office next week with INR check. Patient was seen and evaluated by Dr. Don who completed face to face encounter and physical exam and participated in care, management and decision making. Code Status: Doctor and nurse
--- NOTE | 2017-09-23 10:11 | P.PNFP ---
Subjective Interval history: Patient seen and examined bedside this morning. Patient has been eating and drinking without difficulty since his catheterization yesterday. Since a stent was placed during the procedure, he does not have any further chest pain. He does not have any further shortness of breath either. He is very happy with how it has taken away his symptoms. He has been walking around with no problems. He would like to go home as soon as possible to take care of his . No acute events overnight. No fever/chills. No dizziness. Results - Labs Result diagrams: 09/22/17 12:06 09/22/17 10:05 Abnormal lab results 09/22/17 09/22/17 09/22/17 Range/Units 10:05 12:06 12:06 RBC 4.01 L (4.50-5.90) mil/mm3 Neut % (Auto) 91.9 H (16.0-70.0) % Lymph % (Auto) 7.1 L (9.0-44.0) % Lymph # (Auto) 0.6 L (1.0-4.8) th/mm3 PT 12.3 H D (9.8-11.6) sec Chloride 109 H (98-107) meq/L BUN 32 H (7-18) mg/dL Creatinine 2.77 H (0.60-1.30) mg/dL Estimated GFR 22 L (>89) mL/min Random Glucose 145 H (74-106) mg/dL AST 14 L (15-37) U/L Troponin I Less than 0.02 L (0.02-0.05) ng/mL Albumin 3.2 L (3.4-5.0) g/dL Short CBC 09/22/17 Range/Units 12:06 WBC 8.1 (4.0-11.0) th/mm3 Hgb 13.2 (13.0-17.0) gm/dL Hct 39.0 (39.0-51.0) % Plt Count 168 (150-450) th/mm3 BMP 09/22/17 10:05 Sodium 139 Potassium 4.8 Chloride 109 H Carbon Dioxide 21.4 BUN 32 H Creatinine 2.77 H Calcium 8.9 Cardiac Enzymes 09/22/17 Range/Units 10:05 Total Creatine Kinase 109 (39-308) U/L CK-MB (CK-2) 2.0 (0.5-3.6) ng/mL Troponin I Less than 0.02 L (0.02-0.05) ng/mL Liver Function 09/22/17 Range/Units 10:05 Total Bilirubin 0.7 (0.2-1.0) mg/dL AST 14 L (15-37) U/L ALT 18 (12-78) U/L Alkaline Phosphatase 72 (45-117) U/L Albumin 3.2 L (3.4-5.0) g/dL Physical Exam Vital signs: Vital Signs 09/22/17 12:00 09/22/17 15:40 09/22/17 15:55 Temperature 97.8 F 97.8 F Pulse Rate 65 77 77 Respiratory Rate 16 16 16 Blood Pressure 162/80 H 184/106 H 192/100 H Pulse Oximetry 93 L 97 98 09/22/17 16:00 09/22/17 16:10 09/22/17 16:25 Temperature 97.9 F Pulse Rate 74 68 68 Respiratory Rate 16 16 16 Blood Pressure 194/111 H 187/96 H 179/91 H Pulse Oximetry 98 98 97 09/22/17 16:55 09/22/17 17:25 09/22/17 17:55 Temperature Pulse Rate 83 77 76 Respiratory Rate 16 16 18 Blood Pressure 196/110 H 201/116 H 188/98 H Pulse Oximetry 99 96 96 09/22/17 18:25 09/22/17 19:00 09/22/17 20:00 Temperature 98.2 F Pulse Rate 78 83 74 Respiratory Rate 18 18 Blood Pressure 179/104 H 171/95 H Pulse Oximetry 98 95 09/22/17 21:00 09/22/17 22:00 09/22/17 23:00 Temperature Pulse Rate 80 72 70 Respiratory Rate Blood Pressure Pulse Oximetry 09/23/17 00:00 09/23/17 01:00 09/23/17 02:00 Temperature 97.8 F Pulse Rate 74 74 60 Respiratory Rate 18 Blood Pressure 126/70 Pulse Oximetry 94 L 09/23/17 03:00 09/23/17 04:00 09/23/17 05:00 Temperature 97.8 F Pulse Rate 60 64 58 L Respiratory Rate 18 Blood Pressure 140/71 Pulse Oximetry 96 09/23/17 06:00 Temperature Pulse Rate 60 Respiratory Rate Blood Pressure Pulse Oximetry Intake & Output 07/31/18 08/01/18 08/01/18 18:59 06:59 18:59 Intake Total 1200 / 1200 1760 / 1760 Output Total 300 / 300 275 / 275 Balance 900 / 900 1485 / 1485 Weight 84.9 kg Intake: IV 800 / 800 NS Inj 1,000 ML @ 150 mls/hr IV 800 / 800 .CONT .Q6H40M VIVI Rx#:[id number] Oral 1200 / 1200 960 / 960 Output: Urine 300 / 300 275 / 275 Other: # Voids 1 3 # Bowel Movements 0 - Constitutional no acute distress - Routine Respiratory Exam Present: CTA bilaterally. Absent: accessory muscle use, decreased breath sounds , respiratory distress - Routine Cardiovascular Exam Present: RRR, S1, S2, murmur Comments: 2 out of 6 systolic murmur - Routine Abdominal Exam Present: soft, normoactive bowel sounds. Absent: tenderness - Routine Skin Exam Present: intact - Routine Neurological Exam Present: alert, oriented X3 Assessment and Plan - Assessment (1) Exertional dyspnea Code(s): R06.09 - Other forms of dyspnea Status: Acute Plan: Resolved. On admission: Exertional dyspnea and chest pain with activity 1 year, progressively worsening, follows with Dr. Arian vallejo Scheduled for cardiac catheterization , however acute symptoms have brought him into the ED Differential includes ACS versus PE versus CHF Follow-up recommendations of private quality assurance inspector -As post heart catheterization and LAD stent, okay to DC with Plavix and resume home warfarin and all other home medications including beta-jose. Intolerant to statins. Follow-up in quality assurance inspector office next week with INR check. Consolidation on chest x-ray, CT chest negative Low likelihood for PE; on Coumadin, not tachypneic or tachycardic BNP negative (2) CKD stage 4 secondary to hypertension Code(s): I12.9 - Hypertensive chronic kidney disease with stage 1 through stage 4 chronic kidney disease, or unspecified chronic kidney disease; N18.4 - Chronic kidney disease, stage 4 (severe) Status: Acute Plan: CKD stage IV, possibly due to elevated BPs. Pending morning labs, discussed with quality assurance inspector PA this morning, patient may be discharged and follow-up labs as outpatient with private tack puller and private quality assurance inspector. Creatinine 2.8, baseline 2.3 Follow-up CMP as outpatient, follow-up with outpatient tack puller (3) History of pulmonary embolism Code(s): Z86.711 - Personal history of pulmonary embolism Status: Acute Plan: History of DVTs and PE of unknown source, on Coumadin Status post procedure, patient may now resume warfarin INR 1.2 before his procedure yesterday Follow-up coags as outpatient (4) HBP (high blood pressure) Code(s): I10 - Essential (primary) hypertension Status: Acute Plan: 160-170/ 80s on admission, improved overnight, 140/71 this morning, heart rate improved to 70s from 50s Per cardiology, resume home medication metoprolol twice daily DC on home blood pressure medication (5) Nutrition, metabolism, and development symptoms Code(s): R63.8 - Other symptoms and signs concerning food and fluid intake Status: Acute Plan: Fluids: P.o. fluids Electrolytes: Follow-up daily and replete as needed Nutrition: Regular diet (6) DVT prophylaxis Status: Acute Plan: SCDs, hold Coumadin Status post vitamin K, follow-up INR this morning., anticipating cardiac catheterization - Assessment and Plan 82-year-old male, history of CKD stage III, PE with chronic anticoagulation, hypertension, presents with increasing dyspnea and chest pain with activity. Discharge Planning: Okay for discharge today, cleared by cardiology
[2017-09-23 10:17] VITALS: PULSE 70
[2017-09-23 10:58] VITALS: BP 176/96; RESP 16; TEMP 97.7; O2SAT 97
[2017-09-23 12:14] LABS: Hematocrit 38.6 % (39.0-51.0); Hemoglobin 13.2 gm/dL (13.0-17.0); Mean Corpuscular HGB Conc 34.2 % (32.0-36.0); Mean Corpuscular Hemoglobin 33.4 pg (27.0-34.0); Mean Corpuscular Volume 97.6 fL (80.0-100.0); Mean Platelet Volume 8.3 fL (7.0-11.0); Platelet Count 168 th/mm3 (150-450); Red Blood Count 3.95 mil/mm3 (4.50-5.90); Red Cell Distribution Width 13.7 % (11.6-17.2); White Blood Count 14.5 th/mm3 (4.0-11.0)
[2017-09-23 12:33] LABS: Calcium 8.5 mg/dL (8.5-10.1)
--- NOTE | 2017-09-23 13:26 | P.PNNP ---
Subjective Interval history: Seen earlier in day. Resting comfortably with no complaints. Wanting to be discharged. <RichardbrigitteSunniJeny - Last Filed: 09/23/17 13:22> Physical Exam Vital signs: Vital Signs 09/22/17 15:40 09/22/17 15:55 09/22/17 16:00 Temperature 97.8 F 97.9 F Pulse Rate 77 77 74 Respiratory Rate 16 16 16 Blood Pressure 184/106 H 192/100 H 194/111 H Pulse Oximetry 97 98 98 09/22/17 16:10 09/22/17 16:25 09/22/17 16:55 Temperature Pulse Rate 68 68 83 Respiratory Rate 16 16 16 Blood Pressure 187/96 H 179/91 H 196/110 H Pulse Oximetry 98 97 99 09/22/17 17:25 09/22/17 17:55 09/22/17 18:25 Temperature Pulse Rate 77 76 78 Respiratory Rate 16 18 18 Blood Pressure 201/116 H 188/98 H 179/104 H Pulse Oximetry 96 96 98 09/22/17 19:00 09/22/17 20:00 09/22/17 21:00 Temperature 98.2 F Pulse Rate 83 74 80 Respiratory Rate 18 Blood Pressure 171/95 H Pulse Oximetry 95 09/22/17 22:00 09/22/17 23:00 09/23/17 00:00 Temperature 97.8 F Pulse Rate 72 70 74 Respiratory Rate 18 Blood Pressure 126/70 Pulse Oximetry 94 L 09/23/17 01:00 09/23/17 02:00 09/23/17 03:00 Temperature Pulse Rate 74 60 60 Respiratory Rate Blood Pressure Pulse Oximetry 09/23/17 04:00 09/23/17 05:00 09/23/17 06:00 Temperature 97.8 F Pulse Rate 64 58 L 60 Respiratory Rate 18 Blood Pressure 140/71 Pulse Oximetry 96 09/23/17 07:00 09/23/17 08:00 09/23/17 09:00 Temperature 97.7 F Pulse Rate 63 69 64 Respiratory Rate 16 Blood Pressure 176/96 H Pulse Oximetry 97 09/23/17 10:00 Temperature Pulse Rate 70 Respiratory Rate Blood Pressure Pulse Oximetry Intake & Output 09/22/17 09/23/17 09/23/17 18:59 06:59 18:59 Intake Total 1200 / 1200 1760 / 1760 Output Total 300 / 300 275 / 275 Balance 900 / 900 1485 / 1485 Weight 84.9 kg Intake: IV 800 / 800 NS Inj 1,000 ML @ 150 mls/hr IV 800 / 800 .CONT .Q6H40M VIVI Rx#:[id number] Oral 1200 / 1200 960 / 960 Output: Urine 300 / 300 275 / 275 Other: # Voids 1 3 # Bowel Movements 0 - Constitutional no acute distress - Routine HEENT Exam Head: Present: normocephalic - Routine Neck Exam Present: supple. Absent: JVD - Routine Respiratory Exam Present: CTA bilaterally. Absent: rales, rhonchi, wheezes - Routine Cardiovascular Exam Present: RRR. Absent: murmur - Routine Abdominal Exam Present: soft, normoactive bowel sounds. Absent: tenderness - Routine Extremities Exam Absent: edema - Routine Skin Exam Present: dry, warm - Routine Neurological Exam Present: alert, oriented X3 - Routine Psychiatric Exam Present: cooperative <Jeny Petersen - Last Filed: 09/23/17 13:22> Vital signs: Vital Signs 09/22/17 18:25 09/22/17 19:00 09/22/17 20:00 Temperature 98.2 F Pulse Rate 78 83 74 Respiratory Rate 18 18 Blood Pressure 179/104 H 171/95 H Pulse Oximetry 98 95 09/22/17 21:00 09/22/17 22:00 09/22/17 23:00 Temperature Pulse Rate 80 72 70 Respiratory Rate Blood Pressure Pulse Oximetry 09/23/17 00:00 09/23/17 01:00 09/23/17 02:00 Temperature 97.8 F Pulse Rate 74 74 60 Respiratory Rate 18 Blood Pressure 126/70 Pulse Oximetry 94 L 09/23/17 03:00 09/23/17 04:00 09/23/17 05:00 Temperature 97.8 F Pulse Rate 60 64 58 L Respiratory Rate 18 Blood Pressure 140/71 Pulse Oximetry 96 09/23/17 06:00 09/23/17 07:00 09/23/17 08:00 Temperature 97.7 F Pulse Rate 60 63 69 Respiratory Rate 16 Blood Pressure 176/96 H Pulse Oximetry 97 09/23/17 09:00 09/23/17 10:00 Temperature Pulse Rate 64 70 Respiratory Rate Blood Pressure Pulse Oximetry Intake & Output 07/09/23/17 09/23/17 18:59 06:59 18:59 Intake Total 1200 / 1200 1760 / 1760 Output Total 300 / 300 275 / 275 Balance 900 / 900 1485 / 1485 Weight 84.9 kg Intake: IV 800 / 800 NS Inj 1,000 ML @ 150 mls/hr IV 800 / 800 .CONT .Q6H40M VIVI Rx#:[id number] Oral 1200 / 1200 960 / 960 Output: Urine 300 / 300 275 / 275 Other: # Voids 1 3 # Bowel Movements 0 <Andrey Medrano - Last Filed: 09/23/17 18:01> Assessment and Plan - Plan Chronic kidney disease stage IV, followed by Dr. Cueva outpatient. His creatinine now is 2.8 and GFR is 22 on day of consult. He was told that he had a GFR of around 17 about two weeks ago Creatinine 2.77 ->2.88 ->2.94 S/P heart cath with stent placement Plans for discharge home today, encouraged po intake Instructed to follow up with Dr Cueva outpatient. <Jeny Petersen - Last Filed: 09/23/17 13:22> - Plan Patient seen and examined, agree with above. Has slight increase in the Creatinine. Now for discharge, to follow with Dr. Cueva, he has an appointment. <Andrey Medrano - Last Filed: 09/23/17 18:01>
--- NOTE | 2017-09-24 14:11 | P.DS ---
Date of admission: 09/21/17 14:42 Primary care physician: Siva Saba MD Brief History from admission: 82-year-old male, history of CKD stage III, PE with chronic anticoagulation, hypertension, CAD with stent placement, presents with increasing dyspnea and chest pain with activity. The patient came into the hospital because his shortness of breath and chest pain was severe enough to where he did not think he would make it until his cardiac catheterization scheduled for . He has had shortness of breath and chest pain along with neck pain intermittently over the last year. The chest pain occurs when he gets up and starts walking around/any activity. If he stays still he does not have any chest pain. His chest hurts around the pectoral muscle and it is very difficult for him to describe. He feels gassy as well, like he "has to burp". He has not taken any medications for the chest pain. The pain is a 5/10 when it occurs. He states he "can't breath" and that finally made him come into the ED. The SOB has been occuring x 1.5months now, and he has not tried anything to relieve his SOB. He does not currently feel any sx; but he feels some neck pain and feels like he has to burp. Denies any N/V. Denies any radiation of the pain down either arm. Denies any calf tenderness. DS: Medications - Discharge Medications Prescriptions: clopidogrel [Plavix] 75 mg PO DAILY 30 Days #30 tab DS: Summary Hospital Course: 82-year-old male, history of CKD stage III, PE with chronic anticoagulation, hypertension, ASHD with stent placement presented with increasing dyspnea and chest pain with activity. EKG showed sinus bradycardia with first-degree AV block, marked left axis deviation, possible anterior myocardial infarct. INR: 2.6. Cr: 2.8 . Troponins negative 3. Chest x-ray: Consolidation. CT chest negative. Cardiology was consulted, recommended Nitropaste, vitamin K and cardiac catheterization. Nephrology consulted due to CKD. A successful stent of the proximal left anterior descending artery was done by cardiology. After cardiac catheterization, his creatinine increased from 2.88-2.94 but the procedure was well tolerated and patient stabilized. Nephrology remained consulted and organized an outpatient appointment for patient to be followed. Patient was discharged home on Plavix 75 mg p.o. daily and resume all home medications. Patient to follow-up with cardiology, nephrology and PCP in 1-2 weeks. - Time Spent with Patient Total time spent providing and/or coordinating discharge services: Less than 30 minutes - Quality: VTE Deep Vein Thrombosis/Pulmonary Embolism Present on Admission: No Results Procedures completed during hospitalization: Cardiac catheterization done on 09/22. - Impressions ITS Impressions Chest CT 09/21/17 00:00 CONCLUSION: 1. Clear lungs. 2. Gynecomastia. 3. Atherosclerosis. Chest X-Ray 09/21/17 11:30 CONCLUSION: Prominence at the right infrahilar region likely representing an area of consolidation or atelectasis. Discharge Plan - Discharge Disposition Patient Disposition: Discharge Home - Discharge Condition Condition: Stable - Discharge Order Discharge Orders: Discharge Order (Routine); Ordered 09/23/17 Ordered By: Jeanette Quijano Cardiology Clear for Discharge (Routine); Ordered 09/23/17 Ordered By: Maddy Flynn - Physicians Team Primary Care Provider: Siva Saba Attending Provider: Jairo Mendoza Other Providers: Andrey Medrano MD
== END 2017-09-23 13:13 | disposition home or self-care (01) ==
LOC: NEPC 11:10 → NEDA 14:42 → N04 21:16 → NEDA 21:30 → HCIS 09-22 14:43
PROVIDERS: ADMIT Family Medicine; ATTEND Family Medicine

== ENCOUNTER 2017-11-02 12:47 | Inpatient (IN) ==
[2017-11-02] MEDS ORDERED: Piperacil/Tazo 3.375 GM Premix 50 ML IV.SIG ONE (15:20)
--- NOTE | 2017-11-02 15:27 | ED ---
HPI General Chief Complaint: Recheck/Abnormal Lab/Rx Stated Complaint: PHY sent Time Seen by Provider: 11/02/17 15:18 Source: patient, RN notes reviewed, old records reviewed and other (dr saba) Mode of arrival: ambulatory Limitations: no limitations History of Present Illness HPI narrative: 82-year-old male presents from triage after being sent by his primary care physician for positive blood cultures. He states he has not had any recent symptoms. He states he had to leave against advice because he needed check on his dog and take care of staff and want to see his doctor today. He states his doctor told him to come here. Patient is a poor historian and states he will stay but he is not happy about being here and does not want to answer a lot of questions. Related Data Home Medications Medication Instructions Recorded Confirmed aspirin 81 mg PO DAILY 09/21/17 11/02/17 metoprolol succinate 12.5 mg PO DAILY 09/21/17 11/02/17 Coumadin 6.5 mg PO DAILY 10/28/17 11/02/17 aspirin 81 mg PO DAILY 11/02/17 11/02/17 Previous Rx's Medication Instructions Recorded amoxicillin-pot clavulanate 1 tab PO DAILY #7 tab 10/31/17 [Augmentin] Allergies Allergy/AdvReac Type Severity Reaction Status Date / Time shellfish derived Allergy Severe SWELLING Verified 10/31/17 16:39 diatrizoate meglumine Allergy Unknown Swelling Verified 10/31/17 16:39 gadobenic acid Allergy Unknown Swelling Verified 10/28/17 13:24 gadodiamide Allergy Unknown Swelling Verified 10/28/17 13:24 of Lip/Tongue/Throat gadoteridol Allergy Unknown Swelling Verified 10/28/17 13:24 of Lip/Tongue/Throat iodixanol Allergy Unknown Swelling Verified 10/28/17 13:24 of Lip/Tongue/Throat iohexol Allergy Unknown Swelling Verified 10/28/17 13:24 of Lip/Tongue/Throat [id number] Reductase AdvReac Severe Chest Pain Verified 11/02/17 15:34 Inhibitor Review of Systems ROS: all other systems reviewed are negative [facility] Medical History Medical History Anxiety (Acute) Hx pulmonary embolism (Acute) Cataract (Acute) High cholesterol (Acute) HBP (high blood pressure) (Acute) Surgical History Surgical History Hx of heart artery stent (Chronic) History of tonsillectomy (Acute) Social History Social History Substance History: No History of Abuse Second Hand Smoke Exposure: No Smoking Status: Former smoker Tobacco Type: Cigarettes How Often Do You Have a Drink Containing Alcohol: Never Hx Recent Travel: No Recent Travel in [facility] within the Last 8 Weeks: No Recent Out of Country Travel within the Last 8 Weeks: No Exam Narrative Exam Narrative: GENERAL: 82-year-old male in no apparent distress SKIN: Focused skin assessment warm/dry. HEAD: Atraumatic. Normocephalic. EYES: Pupils equal and round. No scleral icterus. No injection or drainage. ENT: No nasal bleeding or discharge. Mucous membranes pink and moist. NECK: Trachea midline. CARDIOVASCULAR: Regular rate and rhythm. RESPIRATORY: No accessory muscle use. Clear to auscultation. Breath sounds equal bilaterally. GASTROINTESTINAL: Abdomen soft, non-tender, nondistended. Hepatic and splenic margins not palpable. MUSCULOSKELETAL: No obvious deformities. No clubbing. No cyanosis. NEUROLOGICAL: Awake and alert. No obvious cranial nerve deficits. Motor grossly within normal limits. Normal speech. PSYCHIATRIC: Appropriate mood and affect; insight and judgment normal. Course Consultations Consultation #1: dr saba callled while patient was in waiting room requesting him to be brought back and gave history, states positive blood cultures and needing antibiotics and admit Consultation #2: dr carbajal called and states to admit inpatient as aware of patient, knows ct pending per staff Initial Documented Vital Signs Temperature 97.9 F 11/02/17 13:32 Pulse Rate 65 11/02/17 13:32 Respiratory Rate 18 11/02/17 13:32 Blood Pressure 143/70 H 11/02/17 13:32 Pulse Oximetry 98 11/02/17 13:32 Last Documented Vital Signs Temperature 98 F 11/02/17 15:30 Pulse Rate 64 11/02/17 13:41 Respiratory Rate 15 11/02/17 13:41 Blood Pressure 113/70 11/02/17 13:41 Pulse Oximetry 100 11/02/17 15:26 Medical Decision Making MDM Narrative Medical decision making narrative: Will check blood work, urinalysis, CT and dose with Zosyn and monitor. Patient's vitals are currently stable. He understands he will need to stay in the hospital for further care and he is now in agreement to that workup Medical Screen Exam Complete: Yes Emergency Medical Condition: Yes Differential Diagnosis Differential Diagnosis: Sepsis, UTI, diverticulitis, abscess, renal failure Medical Records Medical records reviewed: Yes I reviewed the patient's medical records. 10/31 of this year showed gram-negative rods on 2 cultures Lab Data Lab results reviewed: Yes I reviewed the patient's lab results. Result diagrams: 11/02/17 15:30 11/02/17 15:30 Lab Results 11/02/17 11/02/17 11/02/17 Range/Units 15:30 15:30 15:30 WBC 4.6 (4.0-11.0) th/mm3 RBC 3.79 L (4.50-5.90) mil/mm3 Hgb 12.5 L (13.0-17.0) gm/dL Hct 37.5 L (39.0-51.0) % MCV 98.9 (80.0-100.0) fL MCH 32.9 (27.0-34.0) pg MCHC 33.3 (32.0-36.0) % RDW 13.9 (11.6-17.2) % Plt Count 123 L (150-450) th/mm3 MPV 8.4 (7.0-11.0) fL Prelim Diff (Auto) Slide review pending WBC Differential Manual diff final Seg Neuts % (Manual) 71 H (16-70) % Band Neuts % (Manual) 1 (0-6) % Lymphocytes % (Manual) 17 (9-44) % Monocytes % (Manual) 9 H (0-8) % Eosinophils % (Manual) 2 (0-4) % Abs Neuts (Manual) 3.3 (1.8-7.7) th/mm3 Differential Comment . Platelet Estimate Low L (Normal) Platelet Morphology Normal (Normal) RBC Morphology Normal (Normal) PT 21.1 H (9.8-11.6) sec INR 2.1 Ratio APTT 39.1 H (24.3-30.1) sec Sodium (136-145) meq/L Potassium (3.5-5.1) meq/L Chloride (98-107) meq/L Carbon Dioxide (21.0-32.0) meq/L Anion Gap (5-15) meq/L BUN (7-18) mg/dL Creatinine (0.60-1.30) mg/dL Estimated GFR (>89) mL/min Random Glucose (74-106) mg/dL Lactic Acid (0.4-2.0) mmol/L Calcium (8.5-10.1) mg/dL Phosphorus 2.9 (2.5-4.9) mg/dL Magnesium 2.5 (1.5-2.5) mg/dL Total Bilirubin (0.2-1.0) mg/dL AST (15-37) U/L ALT (12-78) U/L Alkaline Phosphatase (45-117) U/L Total Protein (6.4-8.2) g/dL Albumin (3.4-5.0) g/dL 11/02/17 11/02/17 Range/Units 15:30 15:30 WBC (4.0-11.0) th/mm3 RBC (4.50-5.90) mil/mm3 Hgb (13.0-17.0) gm/dL Hct (39.0-51.0) % MCV (80.0-100.0) fL MCH (27.0-34.0) pg MCHC (32.0-36.0) % RDW (11.6-17.2) % Plt Count (150-450) th/mm3 MPV (7.0-11.0) fL Prelim Diff (Auto) WBC Differential Seg Neuts % (Manual) (16-70) % Band Neuts % (Manual) (0-6) % Lymphocytes % (Manual) (9-44) % Monocytes % (Manual) (0-8) % Eosinophils % (Manual) (0-4) % Abs Neuts (Manual) (1.8-7.7) th/mm3 Differential Comment Platelet Estimate (Normal) Platelet Morphology (Normal) RBC Morphology (Normal) PT (9.8-11.6) sec INR Ratio APTT (24.3-30.1) sec Sodium 143 (136-145) meq/L Potassium 4.7 (3.5-5.1) meq/L Chloride 110 H (98-107) meq/L Carbon Dioxide 25.6 (21.0-32.0) meq/L Anion Gap 7 (5-15) meq/L BUN 28 H (7-18) mg/dL Creatinine 2.74 H (0.60-1.30) mg/dL Estimated GFR 22 L (>89) mL/min Random Glucose 86 (74-106) mg/dL Lactic Acid 1.2 (0.4-2.0) mmol/L Calcium 8.4 L (8.5-10.1) mg/dL Phosphorus (2.5-4.9) mg/dL Magnesium (1.5-2.5) mg/dL Total Bilirubin 0.4 (0.2-1.0) mg/dL AST 30 (15-37) U/L ALT 34 (12-78) U/L Alkaline Phosphatase 72 (45-117) U/L Total Protein 7.7 (6.4-8.2) g/dL Albumin 3.3 L (3.4-5.0) g/dL Imaging Data Attestation: I personally reviewed and interpreted this imaging study as follows : Radiologist's impression: Abdomen/Pelvis CT 11/02/17 15:19 CONCLUSION: 1. Questionable mild diverticulitis involving the sigmoid colon with no significant change. Chest X-Ray 11/02/17 15:19 CONCLUSION: No evidence of acute cardiopulmonary process. Discharge Plan Discharge Disposition Patient Disposition: 30 Still Patient Discharge Details Diagnosis: Sepsis Physicians Team ED Provider: Keren Irene Primary Care Provider: Siva Saba Attending Provider: Sade Carbajal Status ED Status: Admitted Patient
--- NOTE | 2017-11-02 15:55 | XR ---
EXAM DATE: 11/02/2017 3:44 PM EDT AGE/SEX: 82 years / Male INDICATIONS: Fever. CLINICAL DATA: This is the patient's initial encounter. Patient reports that signs and symptoms have been present for 3 days and indicates a pain score of 0/10. MEDICAL/SURGICAL HISTORY: . Hypertension. Myocardial infarction. . Stents. COMPARISON: [facility], CHEST 1V SINGLE AP, 10/31/2017. . FINDINGS: A single AP view of the chest demonstrates the lungs to be symmetrically aerated without evidence of mass, infiltrate or effusion. The cardiomediastinal contours are unremarkable. Osseous structures a re intact. CONCLUSION: No evidence of acute cardiopulmonary process. Electronically signed by: Shaquille Her MD 11/02/2017 3:53 PM EDT
[2017-11-02 16:03] LABS: Activated Partial Thrombo Time 39.1 sec (24.3-30.1); INR 2.1 Ratio; Prothrombin Time 21.1 sec (9.8-11.6)
[2017-11-02 16:12] LABS: Hematocrit 37.5 % (39.0-51.0); Hemoglobin 12.5 gm/dL (13.0-17.0); Mean Corpuscular HGB Conc 33.3 % (32.0-36.0); Mean Corpuscular Hemoglobin 32.9 pg (27.0-34.0); Mean Corpuscular Volume 98.9 fL (80.0-100.0); Mean Platelet Volume 8.4 fL (7.0-11.0); Platelet Count 123 th/mm3 (150-450); Red Blood Count 3.79 mil/mm3 (4.50-5.90); Red Cell Distribution Width 13.9 % (11.6-17.2); White Blood Count 4.6 th/mm3 (4.0-11.0)
[2017-11-02 16:14] LABS: Alanine Aminotransferase 34 U/L (12-78); Albumin 3.3 g/dL (3.4-5.0); Anion Gap 7 meq/L (5-15); Aspartate Aminotransferase 30 U/L (15-37); Blood Urea Nitrogen 28 mg/dL (7-18); Calcium 8.4 mg/dL (8.5-10.1); Carbon Dioxide 25.6 meq/L (21.0-32.0); Chloride 110 meq/L (98-107); Glomerular Filtration Rate 22 mL/min (>89); Glucose,Random 86 mg/dL (74-106); Magnesium 2.5 mg/dL (1.5-2.5); Phosphorus 2.9 mg/dL (2.5-4.9); Potassium 4.7 meq/L (3.5-5.1); Sodium 143 meq/L (136-145)
[2017-11-02 16:16] LABS: Alkaline Phosphatase 72 U/L (45-117); Total Protein 7.7 g/dL (6.4-8.2)
[2017-11-02 16:40] LABS: Eosinophils 2 % (0-4); Lymphocytes 17 % (9-44); Monocytes 9 % (0-8)
[2017-11-02 16:41] LABS: Platelet Morphology Normal (Normal); RBC Morphology Normal (Normal)
[2017-11-02] MEDS ORDERED: Bisacodyl 10 MG Supp RECTAL PRN (17:41)
--- NOTE | 2017-11-02 18:04 | CT ---
EXAM DATE: 11/02/2017 5:38 PM EDT AGE/SEX: 82 years / Male INDICATIONS: Diffuse abdomen pain today. Follow-up acute diverticulitis involving the sigmoid colon. CLINICAL DATA: This is the patient's initial encounter. Patient reports that signs and symptoms have been present for 1 day and indicates a pain score of 2/10. MEDICAL/SURGICAL HISTORY: Diverticulitis. pulmonary embolism, chronic renal insufficiency None . RADIATION DOSE: 9.96 CTDI (mGy) COMPARISON: [facility], CT ABDOMEN & PELVIS W/O CONTRAST, 10/31/2017. . TECHNIQUE: Multiple contiguous axial images were obtained through the abdomen. Images were obtained using multiple row detector helical technique. Using automated exposure control and adjustment of the mA and/or kV according to patient size, radiation dose was kept as low as reasonably achievable to o btain optimal diagnostic quality images. DICOM format image data is available electronically for rev iew and comparison. FINDINGS: Lower Lungs: The visualized lower lungs are clear. Liver: The liver has a homogeneous density with a stable cyst again noted in the left lobe of the shahana er. The gallbladder remains unremarkable. There is no dilation of the biliary tree. Spleen: Homogeneous density without enlargement. Pancreas: Unremarkable without mass or calcification. Kidneys: Normal in size and shape. No evidence of a solid mass or hydronephrosis. Multiple right celeste al cysts are again noted. Adrenal Glands: Unremarkable. Aorta: Atherosclerotic changes are again noted with dilatation and stable small infrarenal abdomina l aortic aneurysm. Bowel/Mesentery: No oral contrast was given emanating the sensitivity of the exam. Multiple divertic vik are again noted greatest in the sigmoid colon with interval mild wall thickening and questionable minimal surrounding inflammatory change in this region. There is no free air or fluid. This does not appear significantly changed. Abdominal Wall: Intact. Retroperitoneum: No evidence of adenopathy in the retrocrural, para-aortic, or deep pelvic regions. Bladder: Contours are smooth. Reproductive Organs: No abnormal masses or calcifications seen. Inguinal: The inguinal region is unremarkable without evidence of adenopathy. Bony Structures: Unremarkable. CONCLUSION: 1. Questionable mild diverticulitis involving the sigmoid colon with no significant change. Electronically signed by: Markus Barker MD 11/02/2017 6:03 PM EDT
--- NOTE | 2017-11-02 18:16 | P.HPIM ---
History of Present Illness Primary Care Physician: Siva Saba MD Chief Complaint: I feel bad; my doctor told me to come back to the emergency room History of Present Illness: 82-year-old white male with a previous history of PE DVT, diverticulosis, coronary artery disease we presented back to the emergency room after encouragement by his primary care physician for admission due to having positive blood cultures of gram-negative rods. Apparently, patient has had 1 week history of intermittent chills and fever and not feeling well. He denies any underlying abdominal pain nor any diarrhea associated with these symptoms other than the chills of fever, he complains of increased fatigue. He denies any coughing or any shortness of breath. Other than the fever and chills, patient had mild decrease in appetite. He states that he had a recent stent placed back in September by his vocational nurse and is currently on Coumadin, Plavix and aspirin. He has not had any recent sick contacts. Inpatient Certification: I certify that the inpatient services were ordered in accordance with Medicare regulations governing the order. This includes certification that hospital inpatient services are reasonable and necessary and in the case of services not specified as inpatient-only under 42 CFR 419.22(n), that they are appropriately provided as inpatient services in accordance to with the 2-midnight benchmark under 43 CFR 412.3(e) Estimated Total Length of Stay (Days): 3 Plans for Post Hospital Care: Not yet determined Review of Systems All other systems reviewed negative except as stated in HPI [facility] - History History Provided By: Patient - Medical History Medical History: Medical History (Last Updated 11/02/17 @ 18:10 by Sade Carbajal MD) Anxiety (Acute) Hx pulmonary embolism (Acute) Cataract (Acute) High cholesterol (Acute) HBP (high blood pressure) (Acute) Coronary artery disease - Surgical History Surgical History: Surgical History (Last Reviewed 11/02/17 @ 18:10 by Sade Carbajal MD) Hx of heart artery stent (Chronic) History of tonsillectomy (Acute) - Family History Family History: Family History (Last Updated 11/02/17 @ 18:11 by Sade Carbajal MD) Other No known health problems - Social History I have reviewed the patient's Social History: Yes - Tobacco History Second Hand Smoke Exposure: No Tobacco Use In Past 30 Days: No Smoking Status: Former smoker Tobacco Type: Cigarettes - Alcohol History How Often Do You Have a Drink Containing Alcohol: Never - Substance Use History Substance History: No History of Abuse - Travel History History of Recent Travel: No Recent Travel in the [place] Within the Last 8 Weeks: No Recent Travel Out of the Country Within the Last 8 Weeks: No - Immunization History Tetanus Immunization: <5 Years Hx Influenza Vaccine This Season: Yes Medications and Allergies Active Medications: Active Medications Al Hydroxide/Mg Hydroxide (Milk Of Magnesia Liq) 30 ml PO Q12H PRN PRN Reason: Mild Constipation Bisacodyl (Dulcolax Supp) 10 mg RECTAL DAILY PRN PRN Reason: SEVERE CONSITIPATION Heparin Sodium (Porcine) (Heparin Inj) 5,000 units SQ Q12H VIVI Sodium Chloride (1/2 Normal Saline Inj) 1,000 mls @ 75 mls/hr IV.CONT .[id number] VIVI Piperacillin/Tazobactam/Dextrose (Zosyn 3.375 Gm Premix) 50 mls @ 100 mls/hr IV.SIG Q8H VIVI Lactulose (Lactulose Liq) 30 ml PO DAILY PRN PRN Reason: SEVERE CONSITIPATION Metoprolol Succinate (Toprol Xl) 12.5 mg PO DAILY VIVI Non-Formulary Medication (Coumadin) 6.5 mg PO DAILY VIVI Ondansetron HCl (Zofran Inj) 4 mg IV.PUSH Q6H PRN PRN Reason: NAUSEA OR VOMITING Senna/Docusate Sodium (Moraima-Colace) 1 tab PO BID VIVI Sennosides (Senokot) 17.2 mg PO Q12H PRN PRN Reason: Moderate Constipation Allergies Allergy/AdvReac Type Severity Reaction Status Date / Time shellfish derived Allergy Severe SWELLING Verified 10/31/17 16:39 diatrizoate meglumine Allergy Unknown Swelling Verified 10/31/17 16:39 gadobenic acid Allergy Unknown Swelling Verified 10/28/17 13:24 gadodiamide Allergy Unknown Swelling Verified 10/28/17 13:24 of Lip/Tongue/Throat gadoteridol Allergy Unknown Swelling Verified 10/28/17 13:24 of Lip/Tongue/Throat iodixanol Allergy Unknown Swelling Verified 10/28/17 13:24 of Lip/Tongue/Throat iohexol Allergy Unknown Swelling Verified 10/28/17 13:24 of Lip/Tongue/Throat [id number]-Ixv Reductase AdvReac Severe Chest Pain Verified 11/02/17 15:34 Inhibitor Home Medications Medication Instructions Recorded Confirmed Type metoprolol succinate 12.5 mg PO DAILY 09/21/17 11/02/17 History Coumadin 6.5 mg PO DAILY 10/28/17 11/02/17 History aspirin 81 mg PO DAILY 11/02/17 11/02/17 History Exam Vital signs: Vital Signs 11/02/17 13:32 11/02/17 13:41 11/02/17 15:26 Temperature 97.9 F Pulse Rate 65 64 Respiratory Rate 18 15 Blood Pressure 143/70 H 113/70 Pulse Oximetry 98 100 100 11/02/17 15:30 Temperature 98 F Pulse Rate Respiratory Rate Blood Pressure Pulse Oximetry Intake & Output 11/01/17 11/02/17 11/02/17 18:59 06:59 18:59 Intake Total 50 / 50 Balance 50 / 50 Weight 78.925 kg Intake: IV 50 / 50 Zosyn 3.375 GM Premix 50 ML @ 50 / 50 100 mls/hr IV.SIG ONCE ONE Rx#: [id number] Narrative: GENERAL: Well-nourished well-developed white male in no acute distress SKIN: Warm and dry. Some ecchymosis skin changes bilateral upper extremity HEAD: Atraumatic. Normocephalic. EYES: Pupils equal and round. No scleral icterus. No injection or drainage. ENT: No nasal bleeding or discharge. Mucous membranes pink and moist. NECK: Trachea midline. No JVD. CARDIOVASCULAR: Regular rate and rhythm. RESPIRATORY: No accessory muscle use. Clear to auscultation. Breath sounds equal bilaterally. GASTROINTESTINAL: Abdomen soft, non-tender, nondistended. Hepatic and splenic margins not palpable. Normoactive bowel sounds MUSCULOSKELETAL: Extremities without clubbing, cyanosis, or edema. No obvious deformities. NEUROLOGICAL: Awake and alert to person place time situation. No obvious cranial nerve deficits. Motor grossly within normal limits. Five out of 5 muscle strength in the arms and legs. Normal speech. PSYCHIATRIC: Appropriate mood and affect; insight and judgment normal. Results - Labs CBC & Chem 7: 11/04/17 05:16 11/04/17 05:16 Labs: Short CBC 11/02/17 Range/Units 15:30 WBC 4.6 (4.0-11.0) th/mm3 Hgb 12.5 L (13.0-17.0) gm/dL Hct 37.5 L (39.0-51.0) % Plt Count 123 L (150-450) th/mm3 BMP 11/02/17 15:30 Sodium 143 Potassium 4.7 Chloride 110 H Carbon Dioxide 25.6 BUN 28 H Creatinine 2.74 H Calcium 8.4 L Liver Function 11/02/17 Range/Units 15:30 Total Bilirubin 0.4 (0.2-1.0) mg/dL AST 30 (15-37) U/L ALT 34 (12-78) U/L Alkaline Phosphatase 72 (45-117) U/L Albumin 3.3 L (3.4-5.0) g/dL - Imaging Impressions Abdomen/Pelvis CT 11/02/17 15:19 CONCLUSION: 1. Questionable mild diverticulitis involving the sigmoid colon with no significant change. Chest X-Ray 11/02/17 15:19 CONCLUSION: No evidence of acute cardiopulmonary process. Caprini VTE Risk Assessment Caprini VTE Risk Assessment: Moderate/High Risk (score >= 2) Caprini Risk Assessment Model: Point Value = 1 Point Value = 2 Point Value = 3 Point Value = 5 Age 41-60 Minor surgery BMI > 25 kg/m2 Swollen legs Varicose veins or History of unexplained or recurrent spontaneous Oral contraceptives or hormone replacement Sepsis (< 1 month) Serious lung disease, including pneumonia (< 1 month) Abnormal pulmonary function Acute myocardial infarction Congestive heart failure (< 1 month) History of inflammatory bowel disease Medical patient at bed rest Age 61-74 Arthroscopic surgery Major open surgery (> 45 min) Laparoscopic surgery (> 45 min) Malignancy Confined to bed (> 72 hours) Immobilizing plaster cast Central venous access Age >= 75 History of VTE Family history of VTE Factor V Leiden Prothrombin [id number] Lupus anticoagulant Anticardiolipin antibodies Elevated serum homocysteine Heparin-induced thrombocytopenia Other congenital or acquired thrombophilia Stroke (< 1 month) Elective arthroplasty Hip, pelvis, or leg fracture Acute spinal cord injury (< 1 month) Prophylaxis Regimen: Total Risk Factor Score Risk Level Prophylaxis Regimen 0-1 Low Early ambulation 2 Moderate Order ONE of the following: *Sequential Compression Device (SCD) *Heparin 5000 units SQ BID 3-4 Higher Order ONE of the following medications: *Heparin 5000 units SQ TID *Enoxaparin/Lovenox 40 mg SQ daily (WT < 150 kg, CrCl > 30 mL/min) *Enoxaparin/Lovenox 30 mg SQ daily (WT < 150 kg, CrCl > 10-29 mL/min) *Enoxaparin/Lovenox 30 mg SQ BID (WT < 150 kg, CrCl > 30 mL/min) AND/OR *Sequential Compression Device (SCD) 5 or more Highest Order ONE of the following medications: *Heparin 5000 units SQ TID (Preferred with Epidurals) *Enoxaparin/Lovenox 40 mg SQ daily (WT < 150 kg, CrCl > 30 mL/min) *Enoxaparin/Lovenox 30 mg SQ daily (WT < 150 kg, CrCl > 10-29 mL/min) *Enoxaparin/Lovenox 30 mg SQ BID (WT < 150 kg, CrCl > 30 mL/min) AND *Sequential Compression Device (SCD) Assessment and Plan - Plan 82 year old white male with history of CAD was sent to the ED for admission due to positive blood culture results of gram negative rods. 1. Gram negative bacteremia with ? source - asymptomatic diverticulitis on scan , repeat CT abd/pelvis ordered in the ED currently pending. ID consult to assist with further work-up. IV Zosyn started, f/u with repeat blood cultures 2. hx of CAD -continue with home Asa, plavix 3. hx of PE/DVT -continue with home Coumadin, monitor PT/INR while on antibiotics 4. DVT prophylaxiscontinue with Coumadin.
[2017-11-02] MEDS: Sodium Chloride 0.45 % Inj 1,000 ML IV.CONT SCH (20:23)
[2017-11-02] MEDS: Heparin - SQ 10,000 UNITS/ML Vial SQ SCH (20:24)
[2017-11-02] MEDS: Senna/Docusate Sodium 8.6/50 MG Tablet PO SCH (20:32)
[2017-11-02] MEDS: Piperacil/Tazo 3.375 GM Premix 50 ML IV.SIG SCH (23:01)
[2017-11-03] MEDS: Sodium Chloride 0.45 % Inj 1,000 ML IV.CONT SCH ×2 (06:14→23:10)
[2017-11-03] MEDS: Piperacil/Tazo 3.375 GM Premix 50 ML IV.SIG SCH (08:00)
[2017-11-03 09:10] LABS: Baso % (Auto) 0.4 % (0.0-2.0); Eos # (Auto) 0.1 th/mm3 (0.0-0.4); Hematocrit 34.1 % (39.0-51.0); Hemoglobin 11.7 gm/dL (13.0-17.0); Lymph # (Auto) 0.8 th/mm3 (1.0-4.8); Lymph % (Auto) 19.6 % (9.0-44.0); Mean Corpuscular HGB Conc 34.3 % (32.0-36.0); Mean Corpuscular Volume 96.2 fL (80.0-100.0); Mean Platelet Volume 8.6 fL (7.0-11.0); Mono # (Auto) 0.5 th/mm3 (0.0-0.9); Mono % (Auto) 13.3 % (0.0-8.0); Neut # (Auto) 2.6 th/mm3 (1.8-7.7); Neut % (Auto) 63.7 % (16.0-70.0); Platelet Count 114 th/mm3 (150-450); Red Blood Count 3.55 mil/mm3 (4.50-5.90); Red Cell Distribution Width 13.6 % (11.6-17.2); White Blood Count 4.1 th/mm3 (4.0-11.0)
[2017-11-03 09:19] LABS: INR 2.2 Ratio
[2017-11-03 09:35] LABS: Potassium 4.4 meq/L (3.5-5.1)
--- NOTE | 2017-11-03 13:32 | P.PNIM ---
Subjective Interval history: 82-year-old white male with a previous history of PE, DVT, diverticulosis, coronary artery disease we presented back to the emergency room after encouragement by his primary care physician for admission due to having positive blood cultures of gram-negative rods. Apparently, patient has had 1 week history of intermittent chills of fever and not feeling well. He denies any underlying abdominal pain nor any diarrhea associated with these symptoms other than the chills and fever, he complains of increased fatigue. He denies any coughing or any shortness of breath. Other than the fear fever and chills, patient had mild decrease in appetite. He states that he had a recent stent placed back in September by his technology adoption manager and is currently on Coumadin, Plavix and aspirin. He has not had any recent sick contacts. 9-11 wants to eat has very mild diverticulitis will give a diet AM LABS DW RN AND PT AND CM AWAIT CULTURES Physical Exam Vital signs: Vital Signs 11/02/17 13:32 11/02/17 13:41 11/02/17 15:26 Temperature 97.9 F Pulse Rate 65 64 Respiratory Rate 18 15 Blood Pressure 143/70 H 113/70 Pulse Oximetry 98 100 100 11/02/17 15:30 11/02/17 20:00 11/03/17 00:00 Temperature 98 F 97.8 F 98 F Pulse Rate 63 72 Respiratory Rate 18 16 Blood Pressure 166/86 H 150/76 H Pulse Oximetry 98 97 11/03/17 04:00 11/03/17 08:00 11/03/17 12:00 Temperature 98.4 F 98.1 F 98.2 F Pulse Rate 92 H 71 66 Respiratory Rate 18 19 19 Blood Pressure 152/90 H 141/79 H 152/82 H Pulse Oximetry 98 97 96 Intake & Output 11/02/17 11/03/17 11/03/17 18:59 06:59 18:59 Intake Total 50 / 50 290 / 290 Balance 50 / 50 290 / 290 Weight 78.925 kg 78.1 kg Intake: IV 50 / 50 50 / 50 Zosyn 3.375 GM Premix 50 ML @ 50 / 50 50 / 50 100 mls/hr IV.SIG Q8H [facility] Rx#: [id number] Oral 240 / 240 Other: # Voids 4 Date of Last Bowel Movement 09/11/18 Weight On Admission 77 kg Narrative: GENERAL: Well-nourished well-developed white male in no acute distress SKIN: Warm and dry. Some ecchymosis skin changes bilateral upper extremity HEAD: Atraumatic. Normocephalic. EYES: Pupils equal and round. No scleral icterus. No injection or drainage. ENT: No nasal bleeding or discharge. Mucous membranes pink and moist. NECK: Trachea midline. No JVD. SUPPLE CARDIOVASCULAR: Regular rate and rhythm. S1, S2 NO S3 OR S4 RESPIRATORY: No accessory muscle use. Clear to auscultation. Breath sounds equal bilaterally. GASTROINTESTINAL: Abdomen soft, non-tender, nondistended. Hepatic and splenic margins not palpable. Normoactive bowel sounds MUSCULOSKELETAL: Extremities without clubbing, cyanosis, or edema. No obvious deformities. NEUROLOGICAL: Awake and alert to person place time situation. No obvious cranial nerve deficits. Motor grossly within normal limits. Five out of 5 muscle strength in the arms and legs. Normal speech. PSYCHIATRIC: Appropriate mood and affect; insight and judgment normal. Results - Labs CBC & Chem 7: 11/03/17 06:22 11/03/17 06:22 Laboratory Results - last 24 hr 11/02/17 11/02/17 11/02/17 15:30 15:30 15:30 WBC 4.6 RBC 3.79 L Hgb 12.5 L Hct 37.5 L MCV 98.9 MCH 32.9 MCHC 33.3 RDW 13.9 Plt Count 123 L MPV 8.4 Prelim Diff (Auto) Slide review pending Neut % (Auto) Lymph % (Auto) [place] % (Auto) Eos % (Auto) Baso % (Auto) Neut # (Auto) Lymph # (Auto) [place] # (Auto) Eos # (Auto) Baso # (Auto) WBC Differential Manual diff final Seg Neuts % (Manual) 71 H Band Neuts % (Manual) 1 Lymphocytes % (Manual) 17 Monocytes % (Manual) 9 H Eosinophils % (Manual) 2 Abs Neuts (Manual) 3.3 Differential Comment . Platelet Estimate Low L Platelet Morphology Normal RBC Morphology Normal PT 21.1 H INR 2.1 APTT 39.1 H Sodium Potassium Chloride Carbon Dioxide Anion Gap BUN Creatinine Estimated GFR Random Glucose Lactic Acid Calcium Phosphorus 2.9 Magnesium 2.5 Total Bilirubin AST ALT Alkaline Phosphatase Total Protein Albumin 11/02/17 11/02/17 11/03/17 15:30 15:30 06:22 WBC 4.1 RBC 3.55 L Hgb 11.7 L Hct 34.1 L MCV 96.2 MCH 33.0 MCHC 34.3 RDW 13.6 Plt Count 114 L MPV 8.6 Prelim Diff (Auto) Neut % (Auto) 63.7 Lymph % (Auto) 19.6 Stanley % (Auto) 13.3 H Eos % (Auto) 3.0 Baso % (Auto) 0.4 Neut # (Auto) 2.6 Lymph # (Auto) 0.8 L [place] # (Auto) 0.5 Eos # (Auto) 0.1 Baso # (Auto) 0.0 WBC Differential . Seg Neuts % (Manual) Band Neuts % (Manual) Lymphocytes % (Manual) Monocytes % (Manual) Eosinophils % (Manual) Abs Neuts (Manual) Differential Comment Auto diff final Platelet Estimate Platelet Morphology RBC Morphology PT INR APTT Sodium 143 Potassium 4.7 Chloride 110 H Carbon Dioxide 25.6 Anion Gap 7 BUN 28 H Creatinine 2.74 H Estimated GFR 22 L Random Glucose 86 Lactic Acid 1.2 Calcium 8.4 L Phosphorus Magnesium Total Bilirubin 0.4 AST 30 ALT 34 Alkaline Phosphatase 72 Total Protein 7.7 Albumin 3.3 L 11/03/17 11/03/17 06:22 06:22 WBC RBC Hgb Hct MCV MCH MCHC RDW Plt Count MPV Prelim Diff (Auto) Neut % (Auto) Lymph % (Auto) [place] % (Auto) Eos % (Auto) Baso % (Auto) Neut # (Auto) Lymph # (Auto) [place] # (Auto) Eos # (Auto) Baso # (Auto) WBC Differential Seg Neuts % (Manual) Band Neuts % (Manual) Lymphocytes % (Manual) Monocytes % (Manual) Eosinophils % (Manual) Abs Neuts (Manual) Differential Comment Platelet Estimate Platelet Morphology RBC Morphology PT 22.0 H INR 2.2 APTT Sodium 142 Potassium 4.4 Chloride 109 H Carbon Dioxide 24.0 Anion Gap 9 BUN 25 H Creatinine 2.45 H Estimated GFR 25 L Random Glucose 83 Lactic Acid Calcium 8.0 L Phosphorus Magnesium Total Bilirubin AST ALT Alkaline Phosphatase Total Protein Albumin Microbiology 11/02/17 15:35 Blood - Peripheral Aerobic Blood Culture - Preliminary No growth in 1 day 11/02/17 15:35 Blood - Peripheral Anaerobic Blood Culture - Preliminary No growth in 1 day 11/02/17 15:20 Blood - Peripheral Aerobic Blood Culture - Preliminary No growth in 1 day 11/02/17 15:20 Blood - Peripheral Anaerobic Blood Culture - Preliminary No growth in 1 day - Imaging Impressions Abdomen/Pelvis CT 11/02/17 15:19 CONCLUSION: 1. Questionable mild diverticulitis involving the sigmoid colon with no significant change. Chest X-Ray 11/02/17 15:19 CONCLUSION: No evidence of acute cardiopulmonary process. - Procedures NONE Assessment and Plan - Plan 82 year old white male with history of CAD was sent to the ED for admission due to positive blood culture results of gram negative rods. 1. gram negative bacteremia with ? source - asymptomatic diverticulitis on scan , repeat CT abd/pelvis ordered in the ED currently pending. ID consult to assist with further work-up. IV Zosyn started, f/u with repeat blood cultures 2. hx of CAD -continue with home Asa, plavix 3. hx of PE/DVT -continue with home Coumadin, monitor PT/INR while on antibiotics 4. DVT prophylaxiscontinue with Coumadin. ADVANCE DIET TO CARDIAC DIET COUMADIN DIET Code Status: FULL CODE Discussed Condition With: RN AND CM AND PT Discharge Planning: PENDING ID CLEARANCE
[2017-11-03] MEDS: Heparin - SQ 10,000 UNITS/ML Vial SQ SCH ×2 (14:13→19:43)
[2017-11-03] MEDS: Senna/Docusate Sodium 8.6/50 MG Tablet PO SCH ×2 (14:13→20:49)
--- NOTE | 2017-11-03 14:14 | P.CONID ---
History of Present Illness Service: Infectious Disease Consult date: 11/03/17 Reason for Consult: Evaluation and Mment of GNR bacteremia Primary Care Provider: Siva Saba MD Family Provider: Siva Saba MD Chief Complaint: I feel bad; my doctor told me to come back to the emergency room History of Present Illness: Mr. Sevilla is an 82-year-old male with past medical history significant for stage IV renal cell carcinoma followed by , history of PE and DVT, history of diverticulosis, history of GI bleed after drug interaction with Coumadin, history of polyps, as well as coronary artery disease. Patient initially presented to the ER and was evaluated underwent workup including blood cultures and was discharged home as patient did not want to be admitted. He then presented back to the emergency room after encouragement by his primary care physician for admission as his blood cultures from his ER visit was positive for gram-negative rods. Patient also reports a one-week history of intermittent chills or fever and generally feeling well. Patient reports history of constipation for which he takes a stool softener and reports that recently when he took a stool softener and had an episode of diarrhea. Patient noted and denies any episodes of acute diverticulosis. Denies any episodes of GI bleed. He denies any history of weight loss or change in his appetite. He denies any history of recent sick contacts. Denies having eaten any meals that led to the current sickness. Infectious disease was consult for evaluation and management of gram-negative mavis bacteremia. At the time of my evaluation patient is on the floor and as soon as I entered his room is that I feel great please discharge me home. Review of Systems All other systems reviewed negative except as stated in HPI PMFSH - History History Provided By: Patient - Medical History Medical History: Medical History (Last Updated 11/02/17 @ 18:10 by Sade Carbajal MD) Anxiety (Acute) Hx pulmonary embolism (Acute) Cataract (Acute) High cholesterol (Acute) HBP (high blood pressure) (Acute) Coronary artery disease - Surgical History Surgical History: Surgical History (Last Reviewed 11/02/17 @ 18:10 by Sade Carbajal MD) Hx of heart artery stent (Chronic) History of tonsillectomy (Acute) - Family History Family History: Family History (Last Updated 11/02/17 @ 18:11 by Sade Carbajal MD) Other No known health problems - Tobacco History Second Hand Smoke Exposure: No Tobacco Use In Past 30 Days: No Smoking Status: Former smoker Tobacco Type: Cigarettes - Alcohol History How Often Do You Have a Drink Containing Alcohol: Monthly or less - Substance Use History Substance History: No History of Abuse - Travel History History of Recent Travel: No Recent Travel in the [place] Within the Last 8 Weeks: No Recent Travel Out of the Country Within the Last 8 Weeks: No - Immunization History Tetanus Immunization: <5 Years Hx Influenza Vaccine This Season: Yes Medications and Allergies Active Medications: Active Medications Al Hydroxide/Mg Hydroxide (Milk Of Magnesia Liq) 30 ml PO Q12H PRN PRN Reason: Mild Constipation Bisacodyl (Dulcolax Supp) 10 mg RECTAL DAILY PRN PRN Reason: SEVERE CONSITIPATION Clopidogrel Bisulfate (Plavix) 75 mg PO DAILY [facility] Heparin Sodium (Porcine) (Heparin Inj) 5,000 units SQ Q12H [facility] Last Admin: 11/03/17 14:13 Dose: Not Given Sodium Chloride (1/2 Normal Saline Inj) 1,000 mls @ 75 mls/hr IV.CONT .[id number] [facility] Last Admin: 11/03/17 06:14 Dose: Not Given Piperacillin/Tazobactam/Dextrose (Zosyn 3.375 Gm Premix) 50 mls @ 100 mls/hr IV.SIG Q8H [facility] Last Infusion: 11/02/17 23:45 Dose: Infused Lactulose (Lactulose Liq) 30 ml PO DAILY PRN PRN Reason: SEVERE CONSITIPATION Metoprolol Succinate (Toprol Xl) 12.5 mg PO DAILY [facility] Miscellaneous (Pill Splitter) 1 each OTHER UNSCH PRN PRN Reason: SEE LABEL COMMENTS Ondansetron HCl (Zofran Inj) 4 mg IV.PUSH Q6H PRN PRN Reason: NAUSEA OR VOMITING Senna/Docusate Sodium (Moraima-Colace) 1 tab PO BID [facility] Last Admin: 11/03/17 14:13 Dose: Not Given Sennosides (Senokot) 17.2 mg PO Q12H PRN PRN Reason: Moderate Constipation Warfarin Sodium (Coumadin) 6 mg PO DAILY@1600 [facility] Warfarin Sodium (Coumadin) 0.5 mg PO DAILY@1600 [facility] Allergies Allergy/AdvReac Type Severity Reaction Status Date / Time shellfish derived Allergy Severe SWELLING Verified 10/31/17 16:39 diatrizoate meglumine Allergy Unknown Swelling Verified 10/31/17 16:39 gadobenic acid Allergy Unknown Swelling Verified 10/28/17 13:24 gadodiamide Allergy Unknown Swelling Verified 10/28/17 13:24 of Lip/Tongue/Throat gadoteridol Allergy Unknown Swelling Verified 10/28/17 13:24 of Lip/Tongue/Throat iodixanol Allergy Unknown Swelling Verified 10/28/17 13:24 of Lip/Tongue/Throat iohexol Allergy Unknown Swelling Verified 10/28/17 13:24 of Lip/Tongue/Throat [id number] Reductase AdvReac Severe Chest Pain Verified 11/02/17 15:34 Inhibitor Home Medications Medication Instructions Recorded Confirmed Type aspirin 81 mg PO DAILY 09/21/17 11/02/17 History metoprolol succinate 12.5 mg PO DAILY 09/21/17 11/02/17 History Coumadin 6.5 mg PO DAILY 10/28/17 11/02/17 History aspirin 81 mg PO DAILY 11/02/17 11/02/17 History Exam Vital signs: Vital Signs 11/02/17 15:26 11/02/17 15:30 11/02/17 20:00 Temperature 98 F 97.8 F Pulse Rate 63 Respiratory Rate 18 Blood Pressure 166/86 H Pulse Oximetry 100 98 11/03/17 00:00 11/03/17 04:00 11/03/17 08:00 Temperature 98 F 98.4 F 98.1 F Pulse Rate 72 92 H 71 Respiratory Rate 16 18 19 Blood Pressure 150/76 H 152/90 H 141/79 H Pulse Oximetry 97 98 97 11/03/17 12:00 Temperature 98.2 F Pulse Rate 66 Respiratory Rate 19 Blood Pressure 152/82 H Pulse Oximetry 96 Intake & Output 11/02/17 11/03/17 11/03/17 18:59 06:59 18:59 Intake Total 50 / 50 290 / 290 Balance 50 / 50 290 / 290 Weight 78.925 kg 78.1 kg Intake: IV 50 / 50 50 / 50 Zosyn 3.375 GM Premix 50 ML @ 50 / 50 50 / 50 100 mls/hr IV.SIG Q8H VIVI Rx#: [id number] Oral 240 / 240 Other: # Voids 4 Date of Last Bowel Movement 11/03/17 Weight On Admission 77 kg Narrative: GENERAL: Well-nourished well-developed, not in acute distress SKIN: Cool and dry, no generalized rash HEAD: Atraumatic. Normocephalic. No temporal or scalp tenderness. EYES: Pupils equal round and reactive. Scleral icterus. No injection or drainage. No petechia ENT: Nothing abnormal detected NECK: Trachea midline. Supple, nontender, no meningeal signs. CARDIOVASCULAR: HS audible. RESPIRATORY: Clear to auscultation bilaterally. GASTROINTESTINAL: Abdomen soft nontender. MUSCULOSKELETAL: Extremities without clubbing, cyanosis. NEUROLOGICAL: Alert oriented 3. Nonfocal. Psych cooperative IV line sites ok. Results - Labs CBC & Chem 7: 11/03/17 06:22 11/03/17 06:22 Labs: Laboratory Results - last 24 hr 11/02/17 11/02/17 11/02/17 15:30 15:30 15:30 WBC 4.6 RBC 3.79 L Hgb 12.5 L Hct 37.5 L MCV 98.9 MCH 32.9 MCHC 33.3 RDW 13.9 Plt Count 123 L MPV 8.4 Prelim Diff (Auto) Slide review pending Neut % (Auto) Lymph % (Auto) [place] % (Auto) Eos % (Auto) Baso % (Auto) Neut # (Auto) Lymph # (Auto) [place] # (Auto) Eos # (Auto) Baso # (Auto) WBC Differential Manual diff final Seg Neuts % (Manual) 71 H Band Neuts % (Manual) 1 Lymphocytes % (Manual) 17 Monocytes % (Manual) 9 H Eosinophils % (Manual) 2 Abs Neuts (Manual) 3.3 Differential Comment . Platelet Estimate Low L Platelet Morphology Normal RBC Morphology Normal PT 21.1 H INR 2.1 APTT 39.1 H Sodium Potassium Chloride Carbon Dioxide Anion Gap BUN Creatinine Estimated GFR Random Glucose Lactic Acid Calcium Phosphorus 2.9 Magnesium 2.5 Total Bilirubin AST ALT Alkaline Phosphatase Total Protein Albumin 11/02/17 11/02/17 11/03/17 15:30 15:30 06:22 WBC 4.1 RBC 3.55 L Hgb 11.7 L Hct 34.1 L MCV 96.2 MCH 33.0 MCHC 34.3 RDW 13.6 Plt Count 114 L MPV 8.6 Prelim Diff (Auto) Neut % (Auto) 63.7 Lymph % (Auto) 19.6 [place] % (Auto) 13.3 H Eos % (Auto) 3.0 Baso % (Auto) 0.4 Neut # (Auto) 2.6 Lymph # (Auto) 0.8 L [place] # (Auto) 0.5 Eos # (Auto) 0.1 Baso # (Auto) 0.0 WBC Differential . Seg Neuts % (Manual) Band Neuts % (Manual) Lymphocytes % (Manual) Monocytes % (Manual) Eosinophils % (Manual) Abs Neuts (Manual) Differential Comment Auto diff final Platelet Estimate Platelet Morphology RBC Morphology PT INR APTT Sodium 143 Potassium 4.7 Chloride 110 H Carbon Dioxide 25.6 Anion Gap 7 BUN 28 H Creatinine 2.74 H Estimated GFR 22 L Random Glucose 86 Lactic Acid 1.2 Calcium 8.4 L Phosphorus Magnesium Total Bilirubin 0.4 AST 30 ALT 34 Alkaline Phosphatase 72 Total Protein 7.7 Albumin 3.3 L 11/03/17 11/03/17 06:22 06:22 WBC RBC Hgb Hct MCV MCH MCHC RDW Plt Count MPV Prelim Diff (Auto) Neut % (Auto) Lymph % (Auto) [place] % (Auto) Eos % (Auto) Baso % (Auto) Neut # (Auto) Lymph # (Auto) [place] # (Auto) Eos # (Auto) Baso # (Auto) WBC Differential Seg Neuts % (Manual) Band Neuts % (Manual) Lymphocytes % (Manual) Monocytes % (Manual) Eosinophils % (Manual) Abs Neuts (Manual) Differential Comment Platelet Estimate Platelet Morphology RBC Morphology PT 22.0 H INR 2.2 APTT Sodium 142 Potassium 4.4 Chloride 109 H Carbon Dioxide 24.0 Anion Gap 9 BUN 25 H Creatinine 2.45 H Estimated GFR 25 L Random Glucose 83 Lactic Acid Calcium 8.0 L Phosphorus Magnesium Total Bilirubin AST ALT Alkaline Phosphatase Total Protein Albumin - Imaging Impressions Abdomen/Pelvis CT 11/02/17 15:19 CONCLUSION: 1. Questionable mild diverticulitis involving the sigmoid colon with no significant change. Chest X-Ray 11/02/17 15:19 CONCLUSION: No evidence of acute cardiopulmonary process. Assessment and Plan - Plan E. coli bacteremia appears to be transient likely secondary to a GI source History of recent constipation he took several stool softeners That led to several episodes of loose BMs. Denies any abdominal pain, nausea or vomiting to suggest diverticulosis of the radiology there appears to be diverticulitis Coronary artery disease on Plavix and aspirin PE and DVT on Coumadin History of GI bleeding and GI issues Recommendations: Discontinue Zosyn IV Follow blood cultures Start Levaquin oral Check EKG particularly the QT interval to decide if Levaquin would be a good choice for him. If QT interval normal and patient's blood cultures negative at 48 hours and patient continues to do well clinically we will consider discharging him in the morning. Patient requested not be on any IV fluids overnight. Upon discharge patient will need close follow-up of his INR as there is a drug interaction between Levaquin and Coumadin. The 2 sources of E. coli bacteremia could be GI from multiple GI issues in the past but also from a source such as his renal cell carcinoma. Patient agrees to follow-up with his primary care as well as Dr. Akbar Avila to address both these issues as outpatient. Will follow along. lincoln stark patient
[2017-11-03] MEDS ORDERED: levoFLOXacin 500 MG Tablet PO ONE (14:15)
[2017-11-04 07:13] LABS: Baso % (Auto) 0.4 % (0.0-2.0); Eos # (Auto) 0.1 th/mm3 (0.0-0.4); Eos % (Auto) 3.2 % (0.0-4.0); Hematocrit 35.3 % (39.0-51.0); Lymph % (Auto) 26.3 % (9.0-44.0); Mean Corpuscular HGB Conc 34.1 % (32.0-36.0); Mean Corpuscular Hemoglobin 32.8 pg (27.0-34.0); Mean Corpuscular Volume 96.3 fL (80.0-100.0); Mean Platelet Volume 8.9 fL (7.0-11.0); Mono # (Auto) 0.4 th/mm3 (0.0-0.9); Mono % (Auto) 10.9 % (0.0-8.0); Neut # (Auto) 2.3 th/mm3 (1.8-7.7); Neut % (Auto) 59.2 % (16.0-70.0); Platelet Count 139 th/mm3 (150-450); Red Blood Count 3.67 mil/mm3 (4.50-5.90); Red Cell Distribution Width 13.7 % (11.6-17.2); White Blood Count 3.8 th/mm3 (4.0-11.0)
[2017-11-04 07:18] LABS: INR 2.5 Ratio; Prothrombin Time 24.8 sec (9.8-11.6)
[2017-11-04 07:37] LABS: Alanine Aminotransferase 35 U/L (12-78); Albumin 2.8 g/dL (3.4-5.0); Anion Gap 8 meq/L (5-15); Aspartate Aminotransferase 25 U/L (15-37); Blood Urea Nitrogen 23 mg/dL (7-18); Calcium 8.2 mg/dL (8.5-10.1); Carbon Dioxide 27.2 meq/L (21.0-32.0); Chloride 109 meq/L (98-107); Glomerular Filtration Rate 25 mL/min (>89); Glucose,Random 93 mg/dL (74-106); Magnesium 2.4 mg/dL (1.5-2.5); Phosphorus 2.5 mg/dL (2.5-4.9); Potassium 4.4 meq/L (3.5-5.1); Sodium 144 meq/L (136-145)
[2017-11-04 07:46] LABS: Alkaline Phosphatase 79 U/L (45-117); Free T4 (Free Thyroxine) 1.23 ng/dL (0.76-1.46); Total Protein 6.9 g/dL (6.4-8.2)
[2017-11-04] MEDS: Senna/Docusate Sodium 8.6/50 MG Tablet PO SCH (09:19)
[2017-11-04] MEDS: Heparin - SQ 10,000 UNITS/ML Vial SQ SCH (09:22)
[2017-11-04] MEDS ORDERED: levoFLOXacin 250 MG Tablet PO SCH (11:00)
[2017-11-04 11:02] VITALS: RESP 20
--- NOTE | 2017-11-04 11:31 | ECG ---
Date Performed: 11/04/2017 Time Performed: 09:58:08 PTAGE: 82 years EKG: Sinus rhythm . Left anterior fascicular block Possible anterior infarct - age undetermined Abnormal ECG NO PREVIOUS TRACING DOCTOR: Pieter Johnson Interpretating Date/Time 11/04/2017 11:30:40
--- NOTE | 2017-11-04 14:11 | P.DS ---
Date of admission: 11/02/17 16:57 Primary care physician: Siva Saba MD Brief History from admission: 82-year-old white male with a previous history of PE DVT, diverticulosis, coronary artery disease we presented back to the emergency room after encouragement by his primary care physician for admission due to having positive blood cultures of gram-negative rods. Apparently, patient has had 1 week history of intermittent chills of fever and not feeling well. He denies any underlying abdominal pain nor any diarrhea associated with these symptoms other than the chills of fever, he complains of increased fatigue. He denies any coughing or any shortness of breath. Other than the fear first and chills, patient had mild decrease in appetite. He states that he had a recent stent placed back in September by his vacation guide and is currently on Coumadin, Plavix and aspirin. He has not had any recent sick contacts. DS: Medications - Discharge Medications Prescriptions: clopidogrel [Plavix] 75 mg PO DAILY #30 tab Lactobacillus acidophilus 500 mmu cells PO BID #30 cap levofloxacin 250 mg PO DAILY@1100 #12 tab DS: Summary Hospital Course: Mr. Sevilla is an 82 year old male. He was admitted due to bacteremia discovered as an outpatient. With Levaquin he has improved and is now feeling better and fever free. ID has recommended Levaquin at discharge, which patient will be discharged on. No growth on cultures in 48 hours. No significant shift of his Qtc on EKG, with Levaquin. Outpatient monitoring of INR is arranged with his PCP. He is medically stable and clear for discharge today. - Time Spent with Patient Total time spent providing and/or coordinating discharge services: Less than 30 minutes - Quality: VTE Deep Vein Thrombosis/Pulmonary Embolism Present on Admission: No Exam Vital signs: Vital Signs 11/03/17 16:00 11/03/17 20:00 11/04/17 00:00 Temperature 97.3 F L 97.4 F L 97.9 F Pulse Rate 63 71 68 Respiratory Rate 20 19 21 Blood Pressure 173/84 H 146/79 H 147/77 H Pulse Oximetry 96 98 96 11/04/17 04:00 11/04/17 08:00 Temperature 97.8 F 97.6 F Pulse Rate 64 67 Respiratory Rate 18 20 Blood Pressure 146/80 H 169/83 H Pulse Oximetry 98 97 Intake & Output 11/03/17 11/04/17 11/04/17 18:59 06:59 18:59 Intake Total 1230 / 1230 480 / 480 Balance 1230 / 1230 480 / 480 Weight 77.2 kg Intake: IV 750 / 750 1/2 Normal Saline Inj 1,000 ML 750 / 750 @ 75 mls/hr IV.CONT .[id number] [facility] Rx#:[id number] Oral 480 / 480 480 / 480 Other: # Voids 4 4 Date of Last Bowel Movement 11/03/17 Results Procedures completed during hospitalization: NONE Labs on day of discharge: Labs from last 24 hours 11/04/17 11/04/17 11/04/17 05:16 05:16 05:16 WBC RBC Hgb Hct MCV MCH MCHC RDW Plt Count MPV Neut % (Auto) Lymph % (Auto) [place] % (Auto) Eos % (Auto) Baso % (Auto) Neut # (Auto) Lymph # (Auto) [place] # (Auto) Eos # (Auto) Baso # (Auto) WBC Differential Differential Comment PT 24.8 H INR 2.5 Sodium 144 Potassium 4.4 Chloride 109 H Carbon Dioxide 27.2 Anion Gap 8 BUN 23 H Creatinine 2.48 H Estimated GFR 25 L Random Glucose 93 Hemoglobin A1c Pending Calcium 8.2 L Phosphorus 2.5 Magnesium 2.4 Total Bilirubin 0.3 AST 25 ALT 35 Alkaline Phosphatase 79 Total Protein 6.9 D Albumin 2.8 L TSH 2.000 Free T4 1.23 11/04/17 05:16 WBC 3.8 L RBC 3.67 L Hgb 12.0 L Hct 35.3 L MCV 96.3 MCH 32.8 MCHC 34.1 RDW 13.7 Plt Count 139 L MPV 8.9 Neut % (Auto) 59.2 Lymph % (Auto) 26.3 [place] % (Auto) 10.9 H Eos % (Auto) 3.2 Baso % (Auto) 0.4 Neut # (Auto) 2.3 Lymph # (Auto) 1.0 [place] # (Auto) 0.4 Eos # (Auto) 0.1 Baso # (Auto) 0.0 WBC Differential . Differential Comment Auto diff final PT INR Sodium Potassium Chloride Carbon Dioxide Anion Gap BUN Creatinine Estimated GFR Random Glucose Hemoglobin A1c Calcium Phosphorus Magnesium Total Bilirubin AST ALT Alkaline Phosphatase Total Protein Albumin TSH Free T4 Preliminary micro results at discharge 11/02/17 15:35 Aerobic Blood Culture - Preliminary Blood - Peripheral No growth in 2 days Anaerobic Blood Culture - Preliminary No growth in 2 days 11/02/17 15:20 Aerobic Blood Culture - Preliminary Blood - Peripheral No growth in 2 days Anaerobic Blood Culture - Preliminary No growth in 2 days - Impressions ITS Impressions Abdomen/Pelvis CT 11/02/17 15:19 CONCLUSION: 1. Questionable mild diverticulitis involving the sigmoid colon with no significant change. Chest X-Ray 11/02/17 15:19 CONCLUSION: No evidence of acute cardiopulmonary process. Discharge Plan - Discharge Disposition Patient Disposition: 01 Discharge Home - Discharge Condition Condition: Stable - Discharge Order Discharge Orders: Discharge Order (Routine); Ordered 11/04/17 Ordered By: Edward Wayne - Discharge Details Anticipated Discharge Date: 11/04/17 - Physicians Team Primary Care Provider: Siva Saba Attending Provider: Edward Wayne Other Providers: Silke Mckeon MD
--- NOTE | 2017-11-04 15:03 | P.PNID ---
Subjective Remarks: Mr. Sevilla is an 82-year-old male with past medical history significant for stage IV renal cell carcinoma followed by , history of PE and DVT, history of diverticulosis, history of GI bleed after drug interaction with Coumadin, history of polyps, as well as coronary artery disease. Patient initially presented to the ER and was evaluated underwent workup including blood cultures and was discharged home as patient did not want to be admitted. He then presented back to the emergency room after encouragement by his primary care physician for admission as his blood cultures from his ER visit was positive for gram-negative rods. Patient also reports a one-week history of intermittent chills or fever and generally feeling well. Patient reports history of constipation for which he takes a stool softener and reports that recently when he took a stool softener and had an episode of diarrhea. Patient noted and denies any episodes of acute diverticulosis. Denies any episodes of GI bleed. He denies any history of weight loss or change in his appetite. He denies any history of recent sick contacts. Denies having eaten any meals that led to the current sickness. Infectious disease was consult for evaluation and management of gram-negative mavis bacteremia. At the time of my evaluation patient is on the floor and as soon as I entered his room is that I feel great please discharge me home. Overnight events reviewed No fevers No rash Reports 2 loose BMs but mostly gas. No abd pain or N/V Antibiotics: Levaquin Lines: Lines ok Past Medical History: reviewed Allergies/Adverse Reactions: Allergies shellfish derived Allergy (Severe, Verified 10/31/17 16:39) SWELLING diatrizoate meglumine Allergy (Unknown, Verified 10/31/17 16:39) Swelling gadobenic acid Allergy (Unknown, Verified 10/28/17 13:24) Swelling gadodiamide Allergy (Unknown, Verified 10/28/17 13:24) Swelling of Lip/Tongue/Throat gadoteridol Allergy (Unknown, Verified 10/28/17 13:24) Swelling of Lip/Tongue/Throat iodixanol Allergy (Unknown, Verified 10/28/17 13:24) Swelling of Lip/Tongue/Throat iohexol Allergy (Unknown, Verified 10/28/17 13:24) Swelling of Lip/Tongue/Throat [id number]-Dkl Reductase Inhibitor Adverse Reaction (Severe, Verified 11/02/17 15:34) Chest Pain Objective Vital Signs 11/03/17 16:00 11/03/17 20:00 11/04/17 00:00 Temperature 97.3 F L 97.4 F L 97.9 F Pulse Rate 63 71 68 Respiratory Rate 20 19 21 Blood Pressure 173/84 H 146/79 H 147/77 H Pulse Oximetry 96 98 96 11/04/17 04:00 11/04/17 08:00 Temperature 97.8 F 97.6 F Pulse Rate 64 67 Respiratory Rate 18 20 Blood Pressure 146/80 H 169/83 H Pulse Oximetry 98 97 Intake & Output 11/03/17 11/04/17 11/04/17 18:59 06:59 18:59 Intake Total 1230 / 1230 480 / 480 Balance 1230 / 1230 480 / 480 Weight 77.2 kg Intake: IV 750 / 750 1/2 Normal Saline Inj 1,000 ML 750 / 750 @ 75 mls/hr IV.CONT .[id number] [facility] Rx#:[id number] Oral 480 / 480 480 / 480 Other: # Voids 4 4 Date of Last Bowel Movement 11/03/17 11/02/17 15:35 Blood - Peripheral Aerobic Blood Culture - Preliminary No growth in 2 days 11/02/17 15:35 Blood - Peripheral Anaerobic Blood Culture - Preliminary No growth in 2 days 11/02/17 15:20 Blood - Peripheral Aerobic Blood Culture - Preliminary No growth in 2 days 11/02/17 15:20 Blood - Peripheral Anaerobic Blood Culture - Preliminary No growth in 2 days Lab - Hematology Results 11/02/17 11/03/17 11/04/17 15:30 06:22 05:16 WBC 4.6 4.1 3.8 L RBC 3.79 L 3.55 L 3.67 L Hgb 12.5 L 11.7 L 12.0 L Hct 37.5 L 34.1 L 35.3 L MCV 98.9 96.2 96.3 MCH 32.9 33.0 32.8 MCHC 33.3 34.3 34.1 RDW 13.9 13.6 13.7 Plt Count 123 L 114 L 139 L MPV 8.4 8.6 8.9 Prelim Diff (Auto) Slide review pending Neut % (Auto) 63.7 59.2 Lymph % (Auto) 19.6 26.3 [place] % (Auto) 13.3 H 10.9 H Eos % (Auto) 3.0 3.2 Baso % (Auto) 0.4 0.4 Neut # (Auto) 2.6 2.3 Lymph # (Auto) 0.8 L 1.0 [place] # (Auto) 0.5 0.4 Eos # (Auto) 0.1 0.1 Baso # (Auto) 0.0 0.0 WBC Differential Manual diff final . . Seg Neuts % (Manual) 71 H Band Neuts % (Manual) 1 Lymphocytes % (Manual) 17 Monocytes % (Manual) 9 H Eosinophils % (Manual) 2 Abs Neuts (Manual) 3.3 Differential Comment . Auto diff final Auto diff final Platelet Estimate Low L Platelet Morphology Normal RBC Morphology Normal Lab - Chemistry Results 11/02/17 11/02/17 11/02/17 15:30 15:30 15:30 Sodium 143 Potassium 4.7 Chloride 110 H Carbon Dioxide 25.6 Anion Gap 7 BUN 28 H Creatinine 2.74 H Estimated GFR 22 L Random Glucose 86 Lactic Acid 1.2 Calcium 8.4 L Phosphorus 2.9 Magnesium 2.5 Total Bilirubin 0.4 AST 30 ALT 34 Alkaline Phosphatase 72 Total Protein 7.7 Albumin 3.3 L TSH Free T4 11/03/17 11/04/17 06:22 05:16 Sodium 142 144 Potassium 4.4 4.4 Chloride 109 H 109 H Carbon Dioxide 24.0 27.2 Anion Gap 9 8 BUN 25 H 23 H Creatinine 2.45 H 2.48 H Estimated GFR 25 L 25 L Random Glucose 83 93 Lactic Acid Calcium 8.0 L 8.2 L Phosphorus 2.5 Magnesium 2.4 Total Bilirubin 0.3 AST 25 ALT 35 Alkaline Phosphatase 79 Total Protein 6.9 D Albumin 2.8 L TSH 2.000 Free T4 1.23 Imaging: ITS Impressions Abdomen/Pelvis CT 11/02/17 15:19 CONCLUSION: 1. Questionable mild diverticulitis involving the sigmoid colon with no significant change. Chest X-Ray 11/02/17 15:19 CONCLUSION: No evidence of acute cardiopulmonary process. Physical Exam: GENERAL: Well-nourished well-developed, not in acute distress SKIN: Cool and dry, no generalized rash HEAD: Atraumatic. Normocephalic. No temporal or scalp tenderness. EYES: Pupils equal round and reactive. Scleral icterus. No injection or drainage. No petechia ENT: Nothing abnormal detected NECK: Trachea midline. Supple, nontender, no meningeal signs. CARDIOVASCULAR: HS audible. RESPIRATORY: Clear to auscultation bilaterally. GASTROINTESTINAL: Abdomen soft nontender. MUSCULOSKELETAL: Extremities without clubbing, cyanosis. NEUROLOGICAL: Alert oriented 3. Nonfocal. Psych cooperative IV line sites ok. Assessment and Plan - Plan E. coli bacteremia appears to be transient likely secondary to a GI source History of recent constipation he took several stool softeners That led to several episodes of loose BMs. Denies any abdominal pain, nausea or vomiting to suggest diverticulosis of the radiology there appears to be diverticulitis Coronary artery disease on Plavix and aspirin PE and DVT on Coumadin History of GI bleeding and GI issues Recommendations: Continue Levaquin oral (stop date: 11/15/2017) lincoln May the [employer] for : needs closer monitoring of INR, she will check on this Thu and then weekly. She will also check him for Cdiff if diarrhea persists. Dw her QT interval monitoring needed. The 2 sources of E. coli bacteremia could be GI from multiple GI issues in the past but also from a source such as his renal cell carcinoma. Patient agrees to follow-up with his primary care as well as Dr. Akbar Avila to address both these issues as outpatient. Will follow along. lincoln stark patient Will sign off please call back if any change in clinical condition or questions.
[2017-11-04 18:09] VITALS: BP 169/90; PULSE 68; TEMP 97.8; O2SAT 99
== END 2017-11-04 14:43 | disposition home or self-care (01) ==
LOC: NEPE 12:47 → NEDA 16:57 → N04 18:56
PROVIDERS: ADMIT Hospitalist; ATTEND Hospitalist